=== PATIENT | male | born 1945 | race Caucasian/White ===

== ENCOUNTER 2019-01-03 05:38 | Day surgery (SDC) | payer MEDICARE, OTHER, SELFPAY ==
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
[2019-01-03] VITALS (15 sets, daily range): BP systolic 105–175; BP diastolic 56–94; PULSE 65–92; RESP 16–18; TEMP 36.2–37.5; O2SAT 92–97; BMI 26.5; BMI 26.4
--- NOTE | 2019-01-03 06:00 | EKG12_ITS ---
Test Reason : PRE-OP Blood Pressure : / mmHG Vent. Rate : 055 BPM Atrial Rate : 055 BPM P-R Int : 160 ms QRS Dur : 122 ms QT Int : 452 ms P-R-T Axes : 026 -64 031 degrees QTc Int : 432 ms Sinus bradycardia Right bundle branch block Left anterior fascicular block Bifascicular block Abnormal ECG No previous ECGs available Confirmed by KELL HAJI, MILANA ([id number]), restaurant expeditor JERRY ADAMES ([id number]) on 01/04/2019 1:19:47 PM Referred By: Ruel Pierre Confirmed By:MILANA CASTORENA MD
--- NOTE | 2019-01-03 07:15 | HERN_PTH ---
PATIENT: CLAUDIA VILLARREAL LOC: [facility] U#:[id number] AGE/SX: 73/M ROOM: RE01/03/[address]: Dr. Ruel Pierre MD : 1945 BED: DIS: 01/04/2019 SPEC #: [id number] RECD: 01/03/19 09:41 STATUS: NANO REShakeel #: [id number] ATIF: 01/03/19 07:[address]: Ruel Pierre DEPT: SURGICAL PATHOLOGY RECD BY: Malcom Green ENTERED: 01/03/19 13:03 SP TYPE: Hernia OTHR DR: Dr. Nishant Kwok MD Tissues: HERNIA Procedures: Surgery Specimen Level IV HEADER OPERATION: Incisional hernia with mesh PRE-OP DIAGNOSIS: Incisional hernia without obstruction or gangrene TISSUE SUBMITTED: Falciform MICROSCOPIC DIAGNOSIS Falciform, excision: Fragments of fibrofatty and fibrovascular tissue. AM:torres 01/04/19 MICROSCOPIC DESCRIPTION Slides are reviewed. GROSS DESCRIPTION Received in fixative is one container labeled with the patient's name and designated falciform. The specimen consists of a piece of adipose tissue measuring 7 x 3 x 1 cm. Sections do not reveal any mass lesion. Milk Bottler sections are submitted in one cassette. / SJ:rg 01/03/19 TC:5 CPT: 37783
[2019-01-03] MEDS: Cefazolin 2 GM in 0.9% Normal Saline 100 ML IV (07:30)
[2019-01-03] MEDS: Bupivacaine Mpf 0.5% 30 ML VIAL (08:50)
--- NOTE | 2019-01-03 08:57 | DCINST_ITS ---
Discharge Diet: Light diet - advance as tolerated Discharge Activity: Return to Normal Activity, May Drive - when you are no longer taking narcotic pain medications., May Shower - with the bandage in place 1-2 days after surgery. Lifting Restrictions: 20 pounds for 8 weeks. Additional Activity Instructions:: Climbing stairs is fine, walking is encouraged. Sitting in bed may be uncomfortable. Sitting up using your lateral muscles (sitting up sideways) is usually more comfortable. Do not drive, work heavy equipment of sign legal documents for 24 hours. If your hernia repair was an ingunial repair, you may have scrotal swelling, an ice pack and/or athletic support can provide more comfort. Pain medications may cause nausea, you should typically eat light foods as you take your pain medications. Pain medications may also cause constipation. If you have difficulty with this, discuss with your doctor. Call your doctor if your incision/area has: Continuous Slow Oozing, Sudden Increased Bleeding, Increased Pain/ Swelling, Increased Redness, Foul Smelling Discharge Call your doctor if you observe: Fever of 101 or Higher Suture Line Care: Avoid Pulling/Pushing, Avoid Pinching/Bending Additional Dressing/Incision Instructions:: Leave the operative bandage on for 2-3 days. When you remove the bandage, leave the steri-strips on place until your follow up appointment or they fall off. Allergies/Adverse Reactions: Allergies No Known Allergies Allergy (Verified 12/27/18 13:11) Medications to take at Discharge Ascorbic Acid [Vitamin C] 1,000 mg PO DAILY 12/27/18 Atorvastatin Calcium [Lipitor] 20 mg PO QHS 12/27/18 Calcium Carbonate [Calcium] 500 mg PO DAILY 12/27/18 Cholecalciferol (Vitamin D3) [Vitamin D3] 400 unit PO DAILY 12/27/18 Escitalopram Oxalate [Lexapro] 10 mg PO QHS 12/27/18 Glucosamine HCl/Chondroitin Suresh [Glucosamine-Chondroitin Cap] 1 each PO BID 12/27/18 Multivitamin [Multiple Vitamins] 1 each PO DAILY 12/27/18 Tamsulosin HCl [Flomax] 0.4 mg PO QHS 12/27/18 Primary Care Physician: Nishant Kwok MD [Primary Care Provider] - Test Results: Test results from this visit will be discussed in further detail at your follow- up appointment, if applicable. Please Follow Up With: Ruel Pierre MD - [phone] When: Plan to have a follow up appointment in 7 days. Call to schedule.
--- NOTE | 2019-01-03 09:00 | PCM.OPRPT ---
Report of Operation Date of Procedure: 01/03/19 Pre-Operative Diagnosis: incisional hernia Post-Operative Diagnosis: incisional hernia - 8x5cm defect Surgery/Procedure Performed:: laparoscopic incisional hernia repair credit union field examiner: None Type of Anesthesia:: General Anesthesiologist: Yazan Dasilva Specimen's removed: dolores Estimated Blood Loss (mL): minimal Fluids Replaced: 700 Description of Procedure: The patient was brought to the operating suite. Sign in was performed verifying patient, site, procedure, position, and DVT prophylaxis with SCDs. Patient received 2 g Ancef antibiotic prophylaxis. Following induction of general anesthetic, the patient?s abdomen was prepped and draped in the usual fashion. Timeout was performed verifying patient, site, position. Local anesthetic was injected . A linear incision was made and dissection carried down at the supraumbilical hernia site. The hernia sac and the hernia sac was opened . A Thomas trocar was inserted and secured with the balloon. 3- 5mm warts were placed in the far left lateral position There was no bowel adherent within the hernia sac. This was dissected off the hernia sac and then dissected off the fascial defect margin . There were multiple adhesions intra-abdominally. The falciform ligament was also divided to prevent tenting. The hernia sac tissue was excised and sent to pathology. A ventrio ST mesh 14x 18 cm was placed intra-abdominally. A Prolene suture was placed through the lower aspect of the mesh brought up with a Granee needle to just below the umbilical fascial defect. Prolene sutures were placed transfixing the fascia at 12 , 6 , 3 and 9:00 and then 4 others placed at diagonals using a GraNee needle . The mesh was then tacked using a secure strap tacker around the outer rim of the mesh and then in multiple locations in the inner mesh Skin was closed with a running and inturrepted 4-0 Monocryl subcuticular sutures. Steri-Strips and bandages were applied. The patient was brought to recovery room in stable condition. Grafts/Implants Used: Ventrio ST 18x14 - Ref [id number] Lot [id number] Exp 12/09/2019 secure strap 3 - Admit VTE Documentation VTE Present on Admission: No VTE Mechan Device Prophylaxis: SCD's VTE Pharm Prophylaxis ordered?: No
[2019-01-03] MEDS: Ketorolac 15 MG/ML Vial IV (10:31)
--- NOTE | 2019-01-03 14:29 | NURSING ---
called for update, given over the phone @ this time.
[2019-01-03] MEDS: oxyCODONE 5 MG Tablet PO ×2 (15:45→21:11)
--- NOTE | 2019-01-03 15:57 | NURSING ---
Pt tolerated 1x lap in hallway. Also has tolerated all clear liquids PO, diet advanced as ordered. Chicken noodle soup and saltines provided.
[2019-01-03] MEDS: Lactated Ringers 1,000 ML 70 ML IV (17:26)
--- NOTE | 2019-01-03 17:41 | NURSING ---
Pt reports he would prefer to spend the night and not be discharged tonight as was previously suggested to him by Dr. Pierre.
[2019-01-03] MEDS: Acetaminophen 325 MG Tablet 650 MG PO (21:11)
[2019-01-03] MEDS: Tamsulosin HCl 0.4 MG Capsule PO (21:11)
[2019-01-03] MEDS: Escitalopram Oxalate 10 MG Tablet PO (21:11)
[2019-01-03] MEDS: Morphine 2 MG/ML Syringe IV (21:27)
--- NOTE | 2019-01-03 22:46 | NURSING ---
Patient up ambulating in hallway at this time.
[2019-01-04] MEDS: oxyCODONE 5 MG Tablet PO ×3 (01:31→10:30)
[2019-01-04 01:36] VITALS: BP 121/81; PULSE 71; RESP 18; TEMP 37.2; O2SAT 94
--- NOTE | 2019-01-04 03:58 | NURSING ---
Patient is up walking in hallways at this time.
[2019-01-04 05:38] VITALS: PULSE 82; O2SAT 90
[2019-01-04 05:41] VITALS: BP 140/74; PULSE 76; RESP 18; TEMP 37.1; O2SAT 92
--- NOTE | 2019-01-04 06:37 | PCM.DC.SUM ---
Discharge Date and Diagnosis Date of Admission: 01/03/19 Date of Discharge: 01/04/19 - Primary Discharge Diagnosis incisional hernia Hospital Course and Treatment Operations: herniorrhaphy Summary of Care Provided: The patient is a 73 year old M with a midline incisional hernia. He underwent laparoscopic incisional hernia repair with mesh [id number]. He was doing will from a pain control standpoint on POD # 1 and ready for discharge - Physical Exam General: Alert, Oriented x3, Cooperative Lungs: Clear to auscultation, Normal air movement Cardiovascular: Regular rate, No murmurs Abdomen: Bowel Sounds Present, Soft, Tender - at incisions Vital Signs Temp Pulse Resp BP Pulse Ox 98.7 F 76 18 140/74 H 92 01/04/19 05:41 01/04/19 05:41 01/04/19 05:41 01/04/19 05:41 01/04/19 05:41 Oxygen Flow Rate (L/min) 1 Oxygen Delivery Method Nasal Cannula Weight: 86.183 kg Body Mass Index (BMI) 26.4 Intake and Output for Last 24 Hours 01/02/19 01/03/19 01/04/19 23:59 23:59 23:59 Intake Total 1401 / 1401 427 / 427 Output Total 300 / 300 575 / 575 Balance 1101 / 1101 -148 / -148 Discharge Diet: Light diet - advance as tolerated Discharge Activity: Return to Normal Activity, May Drive - when you are no longer taking narcotic pain medications., May Shower - with the bandage in place 1-2 days after surgery. Additional Activity Instructions:: Climbing stairs is fine, walking is encouraged. Sitting in bed may be uncomfortable. Sitting up using your lateral muscles (sitting up sideways) is usually more comfortable. Do not drive, work heavy equipment of sign legal documents for 24 hours. If your hernia repair was an ingunial repair, you may have scrotal swelling, an ice pack and/or athletic support can provide more comfort. Pain medications may cause nausea, you should typically eat light foods as you take your pain medications. Pain medications may also cause constipation. If you have difficulty with this, discuss with your doctor. Call your doctor if your incision/area has: Continuous Slow Oozing, Sudden Increased Bleeding, Increased Pain/ Swelling, Increased Redness, Foul Smelling Discharge Call your doctor if you observe: Fever of 101 or Higher Suture Line Care: Avoid Pulling/Pushing, Avoid Pinching/Bending Additional Dressing/Incision Instructions:: Leave the operative bandage on for 2-3 days. When you remove the bandage, leave the steri-strips on place until your follow up appointment or they fall off. Home Medications: Medications to take at Discharge Ascorbic Acid [Vitamin C] 1,000 mg PO DAILY 12/27/18 Atorvastatin Calcium [Lipitor] 20 mg PO QHS 12/27/18 Calcium Carbonate [Calcium] 500 mg PO DAILY 12/27/18 Cholecalciferol (Vitamin D3) [Vitamin D3] 400 unit PO DAILY 12/27/18 Escitalopram Oxalate [Lexapro] 10 mg PO QHS 12/27/18 Glucosamine HCl/Chondroitin Suresh [Glucosamine-Chondroitin Cap] 1 each PO BID 12/27/18 Multivitamin [Multiple Vitamins] 1 each PO DAILY 12/27/18 Tamsulosin HCl [Flomax] 0.4 mg PO QHS 12/27/18 Acetaminophen [Tylenol Tablet] 650 mg PO Q6H PRN PRN tablet 01/03/19 Oxycodone [Oxyir] 5 mg PO Q4H PRN PRN 7 Days #14 tab 01/03/19 Following Prescrptions Were Given to Patient: Oxycodone [Oxyir] 5 mg PO Q4H PRN PRN 7 Days #14 tab PRN Reason: Severe Pain (6-10/10) Primary Care Physician: Nishant Kwok MD [Primary Care Provider] - Please Follow Up With: Ruel Pierre MD - [phone] When: Plan to have a follow up appointment in 7 days. Call to schedule. Medical Necessity - Tobacco Use Smoking Status: Former smoker Tobacco Use: Non-smoker Meaningful Use Info Meaningful Use Diagnoses (Choose all that apply): None applicable
[2019-01-04 07:13] LABS: Absolute Lymphocyte Count 1.69 X10^3/ul (0.83-4.51); Absolute Neutrophil Count 4.5 X10^3/uL (2.0-7.7); Basophil# 0.01 X10^3/uL; Basophil% 0.1 % (0-1); Eosinophil# 0.13 X10^3/uL; Eosinophils% 1.9 % (0-5); Hematocrit 45.4 % (40-54); Lymphocyte # 1.69 X10^3/ul (4.0); Lymphocyte % 24.5 % (19-41); Mean Corp Hgb Conc 30.8 g/gl (32-36); Mean Corpuscular Hgb 31.5 pg (27.0-32.0); Mean Platelet Vol. 9.4 fl (6.2-12.0); Monocyte# 0.57 X10^3/uL; Monocyte% 8.3 % (0-10); Neutrophil # 4.48 X10^3/uL (2.7-7.7); Neutrophil % 65.1 % (47-70); Platelet Count 156 K/mm3 (150-450); RBC Distribution Width CV 12.2 % (11.6-14.6); RBC Distribution Width SD 45.1 fl (35.1-43.9); Red Blood Count 4.45 M/mm3 (4.6-6.2); White Blood Count 6.9 K/mm3 (4.4-11.0)
[2019-01-04 07:14] LABS: POSITIVE COUNT NO; POSITIVE DIFFERENTIAL NO; POSITIVE MORPHOLOGY NO
[2019-01-04 07:26] VITALS: O2SAT 96
[2019-01-04 07:35] LABS: Anion Gap 4 (5-15); BUN 12 mg/dL (7-18); BUN/Creat Ratio 10.9 RATIO (10-20); Calcium,Total 8.4 mg/dL (8.5-10.1); Chloride 104 mmol/L (98-107); EST Glomerular Filtration Rate 70 mL/min (>60); Est Glom Filt Rate - Afr Amer 84 mL/min (>60); Estimated Creatinine Clearance 64.65 ml/min; Glucose 91 mg/dL (74-106); Potassium 3.9 mmol/L (3.5-5.1); Sodium Level 139 mmol/L (136-145)
[2019-01-04 08:28] VITALS: BP 143/74; PULSE 80; RESP 16; TEMP 36.9; O2SAT 93
--- NOTE | 2019-01-04 08:30 | NURSING ---
On RA patient's oxygen was 89-87%. Asked patient to use IS and to ambulate in the bedolla and we would reevaluate. After doing so patient was assisted back to chair and pulse ox was 93% on RA. Will monitor. Encouraged continued use of IS. Educated patient on importance of using this device at home and to continue with ambulation at home and activity as directed by Dr. Pierre in DC instructions.
[2019-01-04 10:42] VITALS: O2SAT 93
== END 2019-01-04 10:45 | disposition home or self-care (01) ==
LOC: SDC 05:41 → AC 05:44 → MS3 01-04 07:21
PROVIDERS: Family Provider Family Medicine; PCP Family Medicine; Referring Provider Surgery; Visit Provider Surgery
PROC: 0WQF4ZZ Repair Abdominal Wall, Percutaneous Endoscopic Approach (ICD-10-PCS; CPT 49654; principal; 2019-01-03 06:55)
DX: K43.2 Incisional hernia without obstruction or gangrene (principal); M19.90 Unspecified osteoarthritis, unspecified site; G14 Postpolio syndrome; E78.5 Hyperlipidemia, unspecified; N40.0 Benign prostatic hyperplasia without lower urinary tract symptoms; F41.9 Anxiety disorder, unspecified; Z87.891 Personal history of nicotine dependence; Z79.899 Other long term (current) drug therapy
CPT/HCPCS: 00832; 49654; 36415; 80048; 85025; 88302; 88305; 93005; J7120; C1781; J2405

== ENCOUNTER 2019-01-06 04:56 | Inpatient (IN) | payer MEDICARE, OTHER, SELFPAY ==
[2019-01-03 11:40] VITALS: BMI 26.4
[2019-01-06 04:57] VITALS: BP 148/94; PULSE 92; RESP 18; TEMP 36.8; O2SAT 97; BMI 26.9
--- NOTE | 2019-01-06 05:06 | RAD_ITS ---
STUDY: X-RAY - ABDOMEN/PELVIS REASON FOR EXAM: Male, 73 years old. Constipation TECHNIQUE: AP supine and upright views of the abdomen and pelvis. COMPARISON: None. FINDINGS: Normal visualized lung bases. There is a paralytic ileus of the small intestine with mild gaseous distention. There is no demonstrated free abdominal air. The visualized liver, spleen and kidneys are grossly normal in size and morphology. Normal soft tissue structures. Normal visualized osseous structures. RAD/Abdomen Single View IMPRESSION: There is gaseous distention of small bowel loops throughout the abdomen suggesting an ileus. Electronically Signed: William Tejada, at 5:36 EDT Tel , Service support ,
--- NOTE | 2019-01-06 05:30 | CT_ITS ---
STUDY: CT ABDOMEN AND PELVIS WITH CONTRAST REASON FOR EXAM: Male, 73 years old. Abdominal pain after incisional hernia repair. RADIATION DOSAGE (If Supplied By Facility): CTDIvol = ( 14.91 ) mGy, DLP = ( 1096.07 ) mGycm TECHNIQUE: Transaxial images were obtained from the dome of the diaphragm to the symphysis pubis without oral contrast. 100 ml IV/Oral Isovue 300 was administered. Sagittal and coronal images were reconstructed. Individualized dose optimization techniques were used for this CT. COMPARISON: Prior comparison studies are not available for review at this time. FINDINGS: There is a bilateral lower lobe airspace consolidation and atelectasis possibly representing pneumonia. The visualized portions of the heart are within normal limits. Normal liver. Normal gallbladder and extrahepatic biliary system. Normal spleen. Normal pancreas. Normal bilateral adrenal glands. Normal right kidney. Normal left kidney. Normal visualized stomach. There are multiple dilated loops of small bowel with maximum transverse dimension of approximately 3.9 cm. Surgical sutures are visible within the right colon possibly related to partial bowel resection. The colon does not appear to be dilated. There is non-visualization of the appendix. There is minimal atherosclerotic calcification of the abdominal aorta with elongation and tortuosity, but without a demonstrated aneurysm. Normal inferior vena cava. Normal retroperitoneum. The urinary bladder is not distended. Normal visualized prostate gland. There appears to be residual central ventral hernia where there may be some incarcerated bowel. This may be the cause of the bowel obstruction. There is soft tissue emphysema within the right paramedian anterior abdominal wall that is probably postoperative in etiology. The bones appear osteopenic. There is severe compression of the L1 vertebral body with estimated amount of compression of at least 80%. There are multilevel degenerative changes of the imaged thoracic and lumbar spine. There are degenerative changes of both hips. CT/Abdomen/Pelvis WITH Contrast IMPRESSION: 1. Small bowel obstruction possibly related to incarcerated small bowel within a residual ventral hernia. 2. Bilateral basilar airspace consolidation and atelectasis could represent pneumonia. Electronically Signed: Yamilet Thomas MD at 8:15 EDT , Service support ,
[2019-01-06 05:47] LABS: Absolute Lymphocyte Count 1.04 X10^3/ul (0.83-4.51); Absolute Neutrophil Count 5.3 X10^3/uL (2.0-7.7); Basophil# 0.02 X10^3/uL; Basophil% 0.3 % (0-1); Eosinophil# 0.17 X10^3/uL; Eosinophils% 2.4 % (0-5); Hemoglobin 14.6 g/dl (13.0-16.5); Lymphocyte # 1.04 X10^3/ul (4.0); Lymphocyte % 14.8 % (19-41); Mean Corp Hgb Conc 32.4 g/gl (32-36); Mean Corpuscular Hgb 32.1 pg (27.0-32.0); Mean Corpuscular Volume 98.9 fL (80-94); Mean Platelet Vol. 9.5 fl (6.2-12.0); Monocyte# 0.51 X10^3/uL; Monocyte% 7.3 % (0-10); Neutrophil # 5.26 X10^3/uL (2.7-7.7); Neutrophil % 75.1 % (47-70); POSITIVE COUNT NO; POSITIVE DIFFERENTIAL NO; POSITIVE MORPHOLOGY NO; Platelet Count 170 K/mm3 (150-450); RBC Distribution Width CV 11.8 % (11.6-14.6); RBC Distribution Width SD 42.2 fl (35.1-43.9); Red Blood Count 4.55 M/mm3 (4.6-6.2)
--- NOTE | 2019-01-06 05:49 | ED.DCSUM_ITS ---
- ER Visit Summary Date of Service: 01/06/19 Chief Complaint: Abdominal pain History of Present Illness: The patient is a 73 M who is postoperative day 3 from incisional hernia repair with Dr. Valiente. Patient states that he was discharged postop day 1. He has not had a bowel movement. He states he is not passing gas. He states that he is urinating fine. He spoke with Dr. Meadows who recommended MiraLAX. He tried 3 doses with no success of having a bowel movement. 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 He developed an incisional hernia. He now notes a generalized 3 out of 10 abdominal pain. Physical Examination: Afebrile vital signs are stable Gen: Well-nourished well-developed Head: Normocephalic atraumatic Eyes: Perrl EOMI ENT: TMs clear no rhinorrhea moist mucous membranes Neck: Supple no lymphadenopathy no JVD nontender CVS: Regular rate rhythm no murmurs normal S1-S2 Respiratory: No distress clear to auscultation bilaterally chest nontender Abdomen: Abdomen is distended. I do hear some bowel sounds. Surgical incisions are without cellulitis. Back: Nontender Extremity: Nontender no edema Skin: Normal color no rash Neuro: alert orientated ?3 CN II-XII intact normal strength sensation reflexes gait cerebellar Psych: Normal affect normal mood Test Results: Abdominal films demonstrate gaseous distention of the small intestines. Emergency Department Course and Treatment: Basic labs were drawn. A CT of the abdomen pelvis was ordered. This will be checked by the daytime physician and we will discuss the findings and treatment plan with surgery after the results. Impression: 1. Acute abdominal pain 2. Ileus This note was generated with GoGoVan dictation software. It may contain incorrect words, spelling, and punctuation that were not noted in review of the chart prior to signing <Chuy Darden - Last Filed: 01/06/19 05:46> - ER Visit Summary Date of Service: 01/06/19 Chief Complaint: [] History of Present Illness: The patient is a 73 M who was initially seen by Dr. Tiburcio Morgan. Patient was evaluated after he returned from CAT scan and inform patient of results. He states he feels better after a large bowel movement. Will relate this information to Dr. Serafin Carreon. Physical Examination: Abdomen is distended tympanitic, but soft. Test Results: CT/Abdomen/Pelvis WITH Contrast IMPRESSION: 1. Small bowel obstruction possibly related to incarcerated small bowel within a residual ventral hernia. 2. Bilateral basilar airspace consolidation and atelectasis could represent pneumonia. Electronically Signed: Yamilet Thomas MD at 8:15 EDT Emergency Department Course and Treatment: Dr. Valiente was paged in light of the CAT scan results which raises concern for a small bowel obstruction related to an incarcerated small bowel within a residual ventral hernia. Treatment Plan: Consult surgery Disposition: Admission medical surgical unit. Will discuss placement of NG. Dr. Valiente reviewed CAT scan. He does not believe he has a partial small bowel obstruction. He believes this represents an ileus. Patient to be assigned to medical surgical unit Impression: Abdominal pain with distention secondary to ileus versus partial small bowel obstruction This note was generated with GoGoVan dictation software. It may contain incorrect words, spelling, and punctuation that were not noted in review of the chart prior to signing <Varela,Reyes - Last Filed: 01/06/19 08:50> ED Disposition <Chuy Darden - Last Filed: 01/06/19 05:46> <Varela,Reyes - Last Filed: 01/06/19 08:50> - Plan for ED Patient: Referrals: Nishant Kwok MD [Primary Care Provider] -
[2019-01-06 06:05] LABS: BUN 13 mg/dL (7-18); Creatinine, Serum 1.02 mg/dL (0.70-1.30); Estimated Creatinine Clearance 69.72 ml/min; Glucose 96 mg/dL (74-106)
[2019-01-06 06:06] LABS: ALB/GLOB Ratio 0.9 RATIO (0.9-2.4); AST(SGOT) 38 U/L (15-37); Alanine Aminotransfer ALT/SGPT 21 U/L (16-61); Albumin, Serum 3.4 g/dL (3.2-5.0); Alkaline Phosphatase 85 U/L (45-117); Anion Gap 9 (5-15); BUN/Creat Ratio 12.7 RATIO (10-20); Chloride 100 mmol/L (98-107); EST Glomerular Filtration Rate 76 mL/min (>60); Est Glom Filt Rate - Afr Amer 92 mL/min (>60); Globulin 3.9 g/dL (2.2-4.2); Potassium 4.6 mmol/L (3.5-5.1); Protein, Total 7.3 g/dL (6.4-8.2); Sodium Level 137 mmol/L (136-145)
[2019-01-06 06:19] LABS: Lactic Acid 1.1 mmol/L (0.4-2.0)
[2019-01-06 08:09] VITALS: BP 135/67; PULSE 73; RESP 15; O2SAT 96
--- NOTE | 2019-01-06 08:56 | NURSING ---
MED SURG ABD PAIN WITHDISTENTION, ILEUS VS PARTIAL SBO SARAH
[2019-01-06 09:52] VITALS: BMI 26.8
[2019-01-06 09:57] VITALS: BP 116/74; PULSE 86; RESP 18; TEMP 36.8; O2SAT 92
[2019-01-06] MEDS: Lactated Ringers 1,000 ML 100 ML IV ×2 (10:45→21:02)
[2019-01-06 17:28] VITALS: BP 118/70; PULSE 81; RESP 18; TEMP 37.2; O2SAT 91
[2019-01-06 20:50] VITALS: BP 115/64; PULSE 82; RESP 16; TEMP 37.1; O2SAT 94
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
[2019-01-07 02:25] VITALS: BP 121/71; PULSE 75; RESP 16; TEMP 36.9; O2SAT 94
--- NOTE | 2019-01-07 04:55 | RAD_ITS ---
STUDY: X-RAY - ABDOMEN/PELVIS REASON FOR EXAM: Male, 73 years old. Abdominal distention and pain. TECHNIQUE: AP supine and upright views of the abdomen and pelvis. COMPARISON: CT of the abdomen and pelvis, January 06, 2019. FINDINGS: Normal visualized lung bases. There is marked gaseous distention of small bowel loops throughout the abdomen without air-fluid levels. Air is seen in nondistended descending colon. There is no demonstrated free abdominal air. The visualized liver, spleen and kidneys are grossly normal in size and morphology. Contrast from the prior CT is seen within the urinary bladder. Normal soft tissue structures. Normal visualized osseous structures. RAD/Abd Inc Decub and/or Erect IMPRESSION: Findings most suggestive of early or small bowel obstruction. Electronically Signed: James Gasca DO at 8:24 EDT Tel [phone], Service support ,
[2019-01-07 06:25] LABS: Absolute Lymphocyte Count 1.27 X10^3/ul (0.83-4.51); Absolute Neutrophil Count 2.3 X10^3/uL (2.0-7.7); Basophil# 0.01 X10^3/uL; Basophil% 0.2 % (0-1); Eosinophil# 0.25 X10^3/uL; Eosinophils% 5.8 % (0-5); Hematocrit 47.2 % (40-54); Hemoglobin 15.2 g/dl (13.0-16.5); Lymphocyte # 1.27 X10^3/ul (4.0); Lymphocyte % 29.5 % (19-41); Mean Corp Hgb Conc 32.2 g/gl (32-36); Mean Corpuscular Hgb 31.5 pg (27.0-32.0); Mean Corpuscular Volume 97.9 fL (80-94); Mean Platelet Vol. 9.9 fl (6.2-12.0); Monocyte# 0.52 X10^3/uL; Monocyte% 12.1 % (0-10); Neutrophil # 2.26 X10^3/uL (2.7-7.7); Neutrophil % 52.4 % (47-70); Platelet Count 199 K/mm3 (150-450); RBC Distribution Width CV 12.1 % (11.6-14.6); RBC Distribution Width SD 43.1 fl (35.1-43.9); Red Blood Count 4.82 M/mm3 (4.6-6.2); White Blood Count 4.3 K/mm3 (4.4-11.0)
[2019-01-07 06:33] LABS: Anion Gap 10 (5-15); BUN 16 mg/dL (7-18); BUN/Creat Ratio 15.2 RATIO (10-20); Chloride 102 mmol/L (98-107); Creatinine, Serum 1.05 mg/dL (0.70-1.30); EST Glomerular Filtration Rate 74 mL/min (>60); Est Glom Filt Rate - Afr Amer 89 mL/min (>60); Estimated Creatinine Clearance 67.73 ml/min; Glucose 101 mg/dL (74-106); Potassium 3.9 mmol/L (3.5-5.1); Sodium Level 139 mmol/L (136-145)
[2019-01-07 06:36] LABS: POSITIVE COUNT NO; POSITIVE DIFFERENTIAL NO; POSITIVE MORPHOLOGY NO
[2019-01-07] MEDS: Lactated Ringers 1,000 ML 100 ML IV ×2 (06:58→16:18)
[2019-01-07 08:03] VITALS: BP 132/79; PULSE 81; RESP 16; TEMP 37; O2SAT 93
--- NOTE | 2019-01-07 10:05 | CASEMGMT ---
RN MEETA Face to Face with patient for initial transition planning/care coordination assessment. RN CM introduced self and role at [facility]. Patient lying in bed, alert and oriented. Patient willing to participate in assessment and is able to answer all questions appropriately. Care providers, pharmacy, and demographics verified. Patient wishes to discharge home, denies need for home health at this time. Patient states he has no further needs or concerns at this time. CM to follow for discharge planning needs that may arise. PCP: Sundar Specialists: [facility] Pharmacy: [facility] Insurance: [facility] Prescription Benefit: yes Living Will/HPOA: none LNOK: Living Arrangements:Lavonne lives in a 2 story home with bed and bath on first floor. Patient is independent at home. Transportation: Self/ DME/HHC: Patient has grab bars, denies further DME at this time. Disposition Plan: Patient to discharge home with family support and follow-up plans in place. Janey HUERTAS, RN, CM
[2019-01-07 11:04] VITALS: BP 136/83; PULSE 85; RESP 16; TEMP 36.6; O2SAT 93
[2019-01-07] MEDS: Tamsulosin HCl 0.4 MG Capsule PO ×2 (11:29→17:15)
[2019-01-07 14:00] VITALS: BP 141/77; PULSE 83; RESP 16; TEMP 37.1; O2SAT 92
--- NOTE | 2019-01-07 18:08 | PN.SURG_ITS ---
Subjective: 2 bowel movements but some cramping earlier - Physical Exam General: Alert, Oriented x3, Cooperative Lungs: Clear to auscultation, Normal air movement Cardiovascular: Regular rate, Regular Rhythm Abdomen: Non Tender - except incisions, Hypoactive Bowel Sounds, Distended - - mildly Vital Signs Temp Pulse Resp BP Pulse Ox 98.8 F 83 16 141/77 H 92 01/07/19 14:00 01/07/19 14:00 01/07/19 14:00 01/07/19 14:00 01/07/19 14:00 Oxygen Delivery Method Room Air Weight: 87.2 kg Body Mass Index (BMI) 26.8 Intake and Output for Last 24 Hours 01/05/19 01/06/19 01/07/19 23:59 23:59 23:59 Intake Total 700 / 700 2316 / 2316 Output Total 0 / 0 / Balance 700 / 700 2315 / 2315 Laboratory Tests Past 24 Hrs 01/07/19 01/07/19 05:10 05:10 WBC 4.3 L RBC 4.82 Hgb 15.2 Hct 47.2 MCV 97.9 H MCH 31.5 MCHC 32.2 RDW 12.1 RDW Differential 43.1 Plt Count 199 MPV 9.9 Immature Gran % (Auto) 0.000 Neut % (Auto) 52.4 Lymph % (Auto) 29.5 [place] % (Auto) 12.1 H Eos % (Auto) 5.8 H Baso % (Auto) 0.2 Absolute Neuts (auto) 2.3 Absolute Lymphs (auto) 1.27 Total Counted Not Reportable Sodium 139 Potassium 3.9 Chloride 102 Carbon Dioxide 27.0 Anion Gap 10 BUN 16 Creatinine 1.05 Estim Creat Clear Calc 67.73 Est GFR (MDRD) Af Amer 89 Est GFR (MDRD) Non-Af 74 BUN/Creatinine Ratio 15.2 Glucose 101 Calcium 9.0 Medical Necessity - Tobacco Use Smoking Status: Former smoker Assessment/Plan postoperative ileus on CT scan, now moving bowels and clinically improved Given the significant degree of abdominal distention on the CT scan -improved on this morning's abdominal multiview, but somewhat hypoactive bowel sounds we will start sips and chips. We will restart his outpatient medications. We'll plan for repeat abdominal multiview in morning..
[2019-01-07 20:00] VITALS: BP 143/86; PULSE 82; RESP 16; TEMP 37.3; O2SAT 92
[2019-01-07] MEDS: Escitalopram Oxalate 10 MG Tablet PO (21:36)
[2019-01-07] MEDS: Atorvastatin Calcium 20 MG Tablet PO (21:36)
[2019-01-08] MEDS: Lactated Ringers 1,000 ML 100 ML IV ×2 (01:50→11:39)
[2019-01-08 02:00] VITALS: BP 137/86; PULSE 90; RESP 16; TEMP 36.8; O2SAT 93
--- NOTE | 2019-01-08 05:28 | RAD_ITS ---
STUDY: X-RAY - ABDOMEN/PELVIS REASON FOR EXAM: Male, 73 years old. Abdominal pain TECHNIQUE: AP supine and upright views of the abdomen and pelvis. COMPARISON: None. FINDINGS: Normal visualized lung bases. Nonspecific bowel gas pattern is noted with gaseous dilated loops of small and large bowel in the right hemiabdomen. Gaseous dilated stomach with air-fluid level. Early obstruction cannot be excluded. No significant change from yesterday. There is no demonstrated free abdominal air. The visualized liver, spleen and kidneys are grossly normal in size and morphology. Normal soft tissue structures. There are diffuse degenerative changes of the visualized lumbar spine. RAD/Abd Inc Decub and/or Erect IMPRESSION: No significant change from yesterday. Continued dilated loops of small and large bowel suggesting early obstruction Electronically Signed: Jt Perera DO at 8:15 EDT Tel , Service support ,
[2019-01-08 08:00] VITALS: BP 144/73; PULSE 90; RESP 18; TEMP 37.1; O2SAT 92
--- NOTE | 2019-01-08 08:48 | NURSING ---
Dr. Pierre in to see pt. Dr. Pierre wants pt to have NG put in and no oral meds. Will put order in.
--- NOTE | 2019-01-08 09:35 | RAD_ITS ---
STUDY: X-RAY - ABDOMEN/PELVIS REASON FOR EXAM: Male, 73 years old. NG tube placement TECHNIQUE: Single AP view of the abdomen / pelvis. COMPARISON: None. FINDINGS: NG tube has been placed however, it curls upon itself in the stomach and the tip of the NG tube is coursing back up the esophagus. Removal of replacement as needed. Again noted is dilated loops of small bowel compatible with early small bowel obstruction. Gaseous distended stomach. Remainder is unchanged RAD/Abdomen Single View IMPRESSION: Abnormal positioning of the enteric tube as detailed above. Removal with repeat placement is needed. Remainder is stable Electronically Signed: Jt Perera DO at 10:19 EDT Tel , Service support ,
--- NOTE | 2019-01-08 10:20 | PCM.PN.SRG ---
Subjective: distended and vomited overnight. Feels better after vomiting, still having liquid bowel movements and passing flatus - Physical Exam General: Alert, Oriented x3 Lungs: Clear to auscultation, Normal air movement Cardiovascular: Regular rate, Regular Rhythm Abdomen: Soft, Passing Flatus, Hypoactive Bowel Sounds, Distended Vital Signs Temp Pulse Resp BP Pulse Ox 98.8 F 90 18 144/73 H 92 01/08/19 08:00 01/08/19 08:00 01/08/19 08:00 01/08/19 08:00 01/08/19 08:00 Oxygen Delivery Method Room Air Weight: 87.2 kg Body Mass Index (BMI) 26.8 Intake and Output for Last 24 Hours 01/06/19 01/07/19 01/08/19 23:59 23:59 23:59 Intake Total 700 / 700 2316 / 2316 1401 / 1401 Output Total 0 / 0 1 / 1 Balance 700 / 700 2315 / 2315 1401 / 1401 Medical Necessity - Tobacco Use Smoking Status: Former smoker Assessment/Plan ileus versus early postop small bowel obstruction repeat review of initial CAT scan was felt to be postoperative ileus. air-fluid level external to mesh was felt to be air-fluid level in the hernia sac which is known and expected after laparoscopic hernia repair. Mesh is 14 x 18 cm and does not seem to demonstrate on previous CT scan any dehiscence with bowel between the mesh and the true abdominal wall. patient was started on liquids yesterday when he is felt to be clinically improving. Still moving bowels/flatus but now vomited overnight we will place an NG tube. Then based on output from the NG tube plan to repeat CT scan with oral contrast.
--- NOTE | 2019-01-08 10:27 | NURSING ---
dr. Pierre called this nurse and made this nurse aware that NG was coiled 6-8 inches into Esophagus and that nurse needs to take NG out 6-8 inches and then advance back 6-8 inches. This nurse in room with pt and took NG out 7 inches and then advanced [address] Pierre wanted. Immediately got Green bile in NG tube. Order placed for 2nd KUB and called to inform. Will make sure they wait on unit until Dr. Pierre is called and we are aware of correct placement. When this nurse initially inserted NG, pt vomited 500cc of green bile and a lg unmeasured amt before that.
--- NOTE | 2019-01-08 10:34 | RAD_ITS ---
STUDY: X-RAY - ABDOMEN/PELVIS REASON FOR EXAM: Male, 73 years old. NG tube placement TECHNIQUE: Single AP view of the abdomen / pelvis. COMPARISON: Plain film earlier FINDINGS: Appropriate positioning of NG tube and side-port in the stomach. Remainder is unchanged RAD/Abdomen Single View IMPRESSION: As above Electronically Signed: Jt Perera DO at 11:08 EDT Tel , Service support ,
--- NOTE | 2019-01-08 10:58 | NURSING ---
Dr. Pierre called this nurse and said placement was good and can make up operator helper to suction.
--- NOTE | 2019-01-08 13:42 | NURSING ---
pt only voided once today that was not measured. This nurse talked about measuring urine in urinal or measuring hat in bathroom and importance. Pt is aware of importance. Will continue to monitor.
--- NOTE | 2019-01-08 15:29 | CT_ITS ---
STUDY: CT ABDOMEN AND PELVIS WITHOUT CONTRAST REASON FOR EXAM: Male, 73 years old. Postop incisional hernia repair, distention nausea and vomiting RADIATION DOSAGE (If Supplied By Facility): CTDIvol = ( 10.10 ) mGy, DLP = ( 542.44 ) mGycm TECHNIQUE: Transaxial images were obtained from the dome of the diaphragm to the symphysis pubis without oral contrast, and without intravenous contrast. Sagittal and coronal images were reconstructed. Individualized dose optimization techniques were used for this CT. COMPARISON: Previous study of 01/06/2019 FINDINGS: There is bibasilar atelectasis. There is mild cardiomegaly. There is no pericardial effusion. Coronary arterial calcifications are present. Normal liver. Normal gallbladder and extrahepatic biliary system. Normal spleen. Normal pancreas. Normal bilateral adrenal glands. Normal right kidney. Normal left kidney. Nasogastric tube is present with the tip in the stomach. There is severe distention of multiple loops of proximal small bowel consistent with obstruction. There is a significant decrease in degree of distention of distal small bowel when compared to the previous study. There are postsurgical changes of the cecal region. There is non-visualization of the appendix. There are several small calcified plaques of the abdominal aorta. Normal inferior vena cava. Normal retroperitoneum. Normal urinary bladder. There is minimal ventral wall herniation containing a knuckle of nondistended bowel. This is significantly decreased from the previous study. There is right anterior abdominal subcutaneous emphysema, similar to the previous study. There are diffuse degenerative changes of the visualized thoracolumbar spine. Severe old compression deformity of L1 is again noted. CT/Abdomen/Pel W ORAL Cont Only IMPRESSION: 1. Bibasilar atelectasis. This is slightly improved in the interval. 2. A nasogastric tube is seen with the tip in the stomach. 3. There is severe distention of multiple loops of proximal small bowel consistent with obstruction. This appears similar to the previous study. There is a significant decrease in degree of distention of distal small bowel when compared to the prior study. 4. There is minimal ventral wall herniation containing a knuckle of nondistended bowel. This is significantly decreased from the previous study. 5. There is right anterior abdominal subcutaneous emphysema, similar to the previous study. 6. Status post right hemicolonic surgical changes are noted. Electronically Signed: Francesco Velasquez MD at 22:36 EDT , Service support ,
[2019-01-08 18:08] VITALS: BP 162/81; PULSE 83; RESP 18; TEMP 37.2; O2SAT 95
--- NOTE | 2019-01-08 18:23 | NURSING ---
Addendum entered by Rabia Thurston 01/08/19 18:25: Order to increase fluids to 150ml/hr Original Note: pt only voided once this morning that was not measured, then 50cc this afternoon. This bladder scanned pt for 15ml. Dr. Pierre called.
[2019-01-08] MEDS: Lactated Ringers 1,000 ML 150 ML IV (18:51)
[2019-01-08 20:20] VITALS: BP 147/89; PULSE 77; RESP 16; TEMP 37.1; O2SAT 92
[2019-01-08] MEDS: Lactated Ringers 500 ML 999 ML IV (21:05)
[2019-01-09] VITALS (16 sets, daily range): BP systolic 103–152; BP diastolic 61–88; PULSE 70–103; RESP 16–20; TEMP 36.6–37.2; O2SAT 92–99; BMI 25.9; BMI 26.8
--- NOTE | 2019-01-09 | HERN_PTH ---
PATIENT: CLAUDIA VILLARREAL LOC: [facility]3 U#:[id number] AGE/SX: 73/M ROOM: TN302 RE01/07/[address]: Dr. Ruel Pierre MD : 1945 BED: 1 DIS: 01/13/2019 SPEC #: [id number] RECD: 01/10/19 07:14 STATUS: NANO REQ #: [id number] ATIF: 01/09/19 00:[address]: Ruel Pierre DEPT: SURGICAL PATHOLOGY RECD BY: Ezequiel Ballesteros ENTERED: 01/10/19 09:21 SP TYPE: Hernia OTHR DR: Dr. Nishant Kwok MD Tissues: HERNIA Procedures: Surgery Specimen Level II HEADER OPERATION: Exploratory laparotomy PRE-OP DIAGNOSIS: Small bowel obstruction TISSUE SUBMITTED: Hernia sac MICROSCOPIC DIAGNOSIS Hernia sac: Fragments of fibroadipose and fibroconnective tissue, consistent with hernia sac with chronic inflammation and reactive changes. SJ:torres 01/11/19 MICROSCOPIC DESCRIPTION Slides are reviewed. GROSS DESCRIPTION Received in fixative is one container labeled with the patient's name and designated hernia sac. The specimen consists of three variable sized pieces of soft tissue that in aggregate measure 8 x 6 x 1.5 cm. No mass lesion is identified. Referral Clerk sections are submitted in one cassette. / SJ:torres 01/10/19 TC:5 CPT: 31622
--- NOTE | 2019-01-09 06:00 | RAD_ITS ---
STUDY: X-RAY - ABDOMEN/PELVIS REASON FOR EXAM: Male, 73 years old. Small bowel obstruction follow-up TECHNIQUE: AP supine and upright views of the abdomen and pelvis. COMPARISON: Yesterday FINDINGS: Enteric tube extends to the upper stomach. Persistent dilated air-filled small bowel measuring up to 6.6 cm and the left lower abdomen. Distal small bowel and colonic gas identified, however. There is no demonstrated free abdominal air. The visualized liver, spleen and kidneys are grossly normal in size and morphology. Normal soft tissue structures. Normal visualized osseous structures. RAD/Abd Inc Decub and/or Erect IMPRESSION: 1. Increased bowel distention as compared to KUB from yesterday. Ileus versus partial small bowel obstruction. Electronically Signed: Isidoro Cox MD at 10:32 EDT , Service support ,
[2019-01-09 06:21] LABS: Absolute Lymphocyte Count 1.46 X10^3/ul (0.83-4.51); Absolute Neutrophil Count 2.8 X10^3/uL (2.0-7.7); Basophil# 0.02 X10^3/uL; Basophil% 0.4 % (0-1); Eosinophil# 0.24 X10^3/uL; Eosinophils% 4.5 % (0-5); Hematocrit 42.6 % (40-54); Hemoglobin 13.8 g/dl (13.0-16.5); Lymphocyte # 1.46 X10^3/ul (4.0); Lymphocyte % 27.2 % (19-41); Mean Corp Hgb Conc 32.4 g/gl (32-36); Mean Corpuscular Hgb 31.7 pg (27.0-32.0); Mean Corpuscular Volume 97.7 fL (80-94); Mean Platelet Vol. 9.6 fl (6.2-12.0); Monocyte# 0.81 X10^3/uL; Monocyte% 15.1 % (0-10); Neutrophil # 2.84 X10^3/uL (2.7-7.7); Neutrophil % 52.8 % (47-70); POSITIVE COUNT NO; POSITIVE DIFFERENTIAL NO; POSITIVE MORPHOLOGY NO; Platelet Count 181 K/mm3 (150-450); RBC Distribution Width CV 12.4 % (11.6-14.6); RBC Distribution Width SD 44.2 fl (35.1-43.9); Red Blood Count 4.36 M/mm3 (4.6-6.2); White Blood Count 5.4 K/mm3 (4.4-11.0)
--- NOTE | 2019-01-09 06:28 | PCM.PN.SRG ---
Subjective: no flatus, no BM - Physical Exam General: Alert, Oriented x3, Cooperative Lungs: Clear to auscultation, Normal air movement Cardiovascular: Regular rate, No murmurs Abdomen: Soft, Hypoactive Bowel Sounds, Distended, Tender - at incision Vital Signs Temp Pulse Resp BP Pulse Ox 98.7 F 70 16 136/75 H 97 01/09/19 02:08 01/09/19 02:08 01/09/19 02:08 01/09/19 02:08 01/09/19 02:08 Oxygen Delivery Method Room Air Weight: 87.2 kg Body Mass Index (BMI) 26.8 Intake and Output for Last 24 Hours 01/07/19 01/08/19 01/09/19 23:59 23:59 23:59 Intake Total 2316 / 2316 2610 / 2610 2061 / 2061 Output Total 1825 / 1825 825 / 825 Balance 2315 / 2315 785 / 785 1237 / 1237 Laboratory Tests Past 24 Hrs 01/09/19 01/09/19 05:05 05:05 WBC 5.4 RBC 4.36 L Hgb 13.8 Hct 42.6 MCV 97.7 H MCH 31.7 MCHC 32.4 RDW 12.4 RDW Differential 44.2 H Plt Count 181 MPV 9.6 Immature Gran % (Auto) 0.000 Neut % (Auto) 52.8 Lymph % (Auto) 27.2 [place] % (Auto) 15.1 H Eos % (Auto) 4.5 Baso % (Auto) 0.4 Absolute Neuts (auto) 2.8 Absolute Lymphs (auto) 1.46 Total Counted Not Reportable Sodium Pending Potassium Pending Chloride Pending Carbon Dioxide Pending Anion Gap Pending BUN Pending Creatinine Pending Est GFR (MDRD) Af Amer Pending Est GFR (MDRD) Non-Af Pending BUN/Creatinine Ratio Pending Glucose Pending Calcium Pending Total Bilirubin Pending AST Pending ALT Pending Alkaline Phosphatase Pending Total Protein Pending Albumin Pending Medical Necessity - Tobacco Use Smoking Status: Former smoker Assessment/Plan ileus versus early postop small bowel obstruction POD # 6 from initial surgical procedure repeat review of initial CAT scan was felt to be postoperative ileus. air-fluid level external to mesh was felt to be air-fluid level in the hernia sac which is known and expected after laparoscopic hernia repair. Mesh is 14 x 18 cm and does not seem to demonstrate on previous CT scan any dehiscence with bowel between the mesh and the true abdominal wall. patient was started on liquids yesterday when he is felt to be clinically improving. Still moving bowels/flatus but vomited Kwame overnight NG tube placed. - large volume output. Repeat CT scan with oral contrast - Still interpreted as a small bowel obstruction. KUB this morning suggestive of contrast to descending colon but still markedly dilated small bowel Discussed with patient and his via phone possibilities of just ileus, mesh displacement with bowel obstruction, occult injury to bowel, adhesion from prior ileocecal resection that now manifested itself. The patient and his understand that this will be an open procedure, that I will remove the mesh and examine the intestine and then repair the defect without mesh. I plan to perform an exploratory laparotomy with mesh removal and primary incisional hernia repair. The patient understands the risks, benefits, possible complications and consents to surgical procedure. SCD's are in place. morning labs are currently pending. Zosyn will be given. Will place espino during the surgical procedure
[2019-01-09] MEDS: 0.9% NaCl Peripheral Flush Adult/Peds IV ×6 (06:32→18:20)
[2019-01-09] MEDS: Lactated Ringers 500 ML 999 ML IV (06:33)
[2019-01-09 06:39] LABS: ALB/GLOB Ratio 0.7 RATIO (0.9-2.4); AST(SGOT) 25 U/L (15-37); Alanine Aminotransfer ALT/SGPT 16 U/L (16-61); Albumin, Serum 2.7 g/dL (3.2-5.0); Alkaline Phosphatase 65 U/L (45-117); Anion Gap 8 (5-15); BUN 19 mg/dL (7-18); Calcium,Total 8.5 mg/dL (8.5-10.1); Chloride 105 mmol/L (98-107); Creatinine, Serum 0.79 mg/dL (0.70-1.30); EST Glomerular Filtration Rate 102 mL/min (>60); Est Glom Filt Rate - Afr Amer 124 mL/min (>60); Estimated Creatinine Clearance 71.12 ml/min; Globulin 3.8 g/dL (2.2-4.2); Glucose 83 mg/dL (74-106); Potassium 3.3 mmol/L (3.5-5.1); Protein, Total 6.5 g/dL (6.4-8.2); Sodium Level 141 mmol/L (136-145)
--- NOTE | 2019-01-09 07:56 | NURSING ---
Pt is off the floor in surgery. Was taken down via bed at approximately at 0720.
[2019-01-09] MEDS: Bupivacaine Mpf 0.5% 30 ML VIAL (08:55)
--- NOTE | 2019-01-09 09:11 | PCA ---
pt off floor
--- NOTE | 2019-01-09 09:39 | PCM.OPRPT ---
Report of Operation Date of Procedure: 01/09/19 Pre-Operative Diagnosis: high grade small bowel obstruction, POD #6 lap incisional hernia repair Post-Operative Diagnosis: high grade small bowel obstruction, POD #6 lap incisional hernia repair, intact hernia repair, single band adhesion omentum to just proximal to ileocecal anastomosis Surgery/Procedure Performed:: exploratory laparotomy, removal of mesh, lysis of adhesion, primarey closure of hernia defect bread supervisor: Tiburcio Truong Type of Anesthesia:: General Anesthesiologist: Butch Pete - ASA2E Specimen's removed: mesh, hernia sac Estimated Blood Loss (mL): 50 Fluids Replaced: 2200 Description of Procedure: The patient was brought to the operating suite. Sign in was performed verifying patient, site, procedure, position, and DVT prophylaxis with SCDs. Patient received Zosyn 4.5 g due to possibility of bowel injury. Following induction of general anesthetic. A De La Cruz catheter was placed. Nasogastric tube was was already in place. The patient?s abdomen was prepped and draped in the usual fashion. Timeout was performed verifying patient, site, position. Incision made through the previous midline incision for the laparoscopic hernia repair performed one week previously and dissection was carried and the hernia sac was entered. There was noted to be a small hematoma in the hernia sac. The mesh was intact. There was no bowel within the hernia sac. At this point, the previously placed 14 x 18 cm ventrio mesh was dissected from it's peritoneal attachments with releasing the many tacks that were placed and sequentially dividing and removing the transfixing Prolene sutures. As the mesh was completely removed, there were no defects at mesh placement along the lateral aspect of the mesh and no areas were small bowel seem to be adherent to the mesh. The mesh was examined after removal and noted to be intact. Visual inspection revealed multiple loops of dilated small bowel. Some serosanguineous fluid without any signs of bile staining or succus in the abdominal cavity. The small bowel was then run from the ligament of Treitz distally. The ileocecal anastomosis was noted in the right lateral to upper quadrant area. There was noted to be a solitary band of omentum to the right retroperitoneum causing the high-grade partial obstruction. This adhesion was lysed. The small bowel was again run with no other abnormalities noted and returned to anatomic position. NG tube was palpated and felt to be in good location the stomach. the hernia sac was then dissected back to clean fascia and excised sharply and using cutting electrocautery. Following this, the fascia was closed with interrupted 0 Prolene [id number] sutures the knots of which were buried. The subcutaneous tissues were then irrigated and skin closed with sharon. The patient was extubated and brought to recovery in stable condition. The patient was brought to recovery room in stable condition. - Admit VTE Documentation VTE Present on Admission: No VTE Mechan Device Prophylaxis: SCD's VTE Pharm Prophylaxis ordered?: No
--- NOTE | 2019-01-09 09:42 | OP.PCM_ITS ---
Report of Operation Date of Procedure: 01/09/19 Pre-Operative Diagnosis: high grade small bowel obstruction, POD #6 lap in cisional hernia repair Post-Operative Diagnosis: high grade small bowel obstruction, POD #6 lap incisional hernia repair, intact hernia repair, single band adhesion omentum to just proximal to ileocecal anastomosis Surgery/Procedure Performed:: exploratory laparotomy, removal of mesh, lysis of adhesion, primarey closure of hernia defect operations support analyst: Tiburcio Truong Type of Anesthesia:: General Anesthesiologist: Butch Pete - ASA2E Specimen's removed: mesh, hernia sac Estimated Blood Loss (mL): 50 Fluids Replaced: 2200 Description of Procedure: The patient was brought to the operating suite. Sign in was performed verifying patient, site, procedure, position, and DVT prophylaxis with SCDs. Patient received Zosyn 4.5 g due to possibility of bowel injury. Following induction of general anesthetic. A De La Cruz catheter was placed. Nasogastric tube was was already in place. The patient?s abdomen was prepped and draped in the usual fashion. Timeout was performed verifying patient, site, position. Incision made through the previous midline incision for the laparoscopic hernia repair performed one week previously and dissection was carried and the hernia sac was entered. There was noted to be a small hematoma in the hernia sac. The mesh was intact. There was no bowel within the hernia sac. At this point, the previously placed 14 x 18 cm ventrio mesh was dissected from it's peritoneal attachments with releasing the many tacks that were placed and sequentially dividing and removing the transfixing Prolene sutures. As the mesh was completely removed, there were no defects at mesh placement along the lateral aspect of the mesh and no areas were small bowel seem to be adherent to the mesh. The mesh was examined after removal and noted to be intact. Visual inspection revealed multiple loops of dilated small bowel. Some serosanguineous fluid without any signs of bile staining or succus in the abdominal cavity. The small bowel was then run from the ligament of Treitz distally. The ileocecal anastomosis was noted in the right lateral to upper quadrant area. There was noted to be a solitary band of omentum to the right retroperitoneum causing the high-grade partial obstruction. This adhesion was lysed. The small bowel was again run with no other abnormalities noted and returned to anatomic position. NG tube was palpated and felt to be in good location the stomach. the hernia sac was then dissected back to clean fascia and excised sharply and using cutting electrocautery. Following this, the fascia was closed with interrupted 0 Prolene [id number] sutures the knots of which were buried. The subcutaneous tissues were then irrigated and skin closed with sharon. The patient was extubated and brought to recovery in stable condition. The patient was brought to recovery room in stable condition. - Admit VTE Documentation VTE Present on Admission: No VTE Mechan Device Prophylaxis: SCD's VTE Pharm Prophylaxis ordered?: No
[2019-01-09] MEDS: Morphine 2 MG/ML Syringe IV ×5 (10:56→22:26)
[2019-01-09] MEDS: Lactated Ringers 1,000 ML 150 ML IV (12:56)
--- NOTE | 2019-01-09 18:28 | NURSING ---
Dr. Pierre aware that pt only had 80cc of urine out in espino between 12pm today and now. LR bolus 500cc now and another 500cc bolus if output not 20ml/hr.
[2019-01-09] MEDS: Lactated Ringers 1,000 ML 999 ML IV (20:36)
[2019-01-10] MEDS: Morphine 2 MG/ML Syringe IV ×8 (00:10→22:20)
[2019-01-10] MEDS: Lactated Ringers 1,000 ML 150 ML IV ×5 (00:11→23:38)
[2019-01-10 02:15] VITALS: BP 135/73; PULSE 89; RESP 18; TEMP 37.1; O2SAT 96
[2019-01-10 06:01] LABS: Absolute Lymphocyte Count 1.11 X10^3/ul (0.83-4.51); Absolute Neutrophil Count 5.6 X10^3/uL (2.0-7.7); Basophil# 0.02 X10^3/uL; Basophil% 0.3 % (0-1); Eosinophil# 0.05 X10^3/uL; Eosinophils% 0.6 % (0-5); Hemoglobin 14.9 g/dl (13.0-16.5); Lymphocyte # 1.11 X10^3/ul (4.0); Lymphocyte % 14.4 % (19-41); Mean Corp Hgb Conc 31.7 g/gl (32-36); Mean Corpuscular Volume 97.7 fL (80-94); Mean Platelet Vol. 9.3 fl (6.2-12.0); Monocyte% 11.7 % (0-10); Neutrophil % 72.6 % (47-70); Platelet Count 163 K/mm3 (150-450); RBC Distribution Width CV 12.3 % (11.6-14.6); RBC Distribution Width SD 43.6 fl (35.1-43.9); Red Blood Count 4.81 M/mm3 (4.6-6.2); White Blood Count 7.7 K/mm3 (4.4-11.0)
[2019-01-10 06:17] LABS: POSITIVE DIFFERENTIAL NO; POSITIVE MORPHOLOGY NO
[2019-01-10 06:24] LABS: Anion Gap 8 (5-15); BUN 23 mg/dL (7-18); Calcium,Total 8.1 mg/dL (8.5-10.1); Chloride 104 mmol/L (98-107); Creatinine, Serum 1.35 mg/dL (0.70-1.30); EST Glomerular Filtration Rate 55 mL/min (>60); Est Glom Filt Rate - Afr Amer 67 mL/min (>60); Estimated Creatinine Clearance 52.68 ml/min; Glucose 115 mg/dL (74-106); Potassium 3.9 mmol/L (3.5-5.1); Sodium Level 142 mmol/L (136-145)
[2019-01-10 06:46] VITALS: O2SAT 94
[2019-01-10 08:16] VITALS: BP 129/82; PULSE 92; RESP 18; TEMP 36.6; O2SAT 95
[2019-01-10 14:16] VITALS: BP 129/77; PULSE 99; RESP 18; TEMP 37.4; O2SAT 94
--- NOTE | 2019-01-10 15:35 | PN.SURG_ITS ---
Subjective: incisional pain but tolerable, Thirsty, concerned about low urine output - Physical Exam General: Alert, Oriented x3, Cooperative Lungs: Clear to auscultation, Normal air movement Cardiovascular: Regular rate, No murmurs Abdomen: Bowel Sounds Present, Soft, Hypoactive Bowel Sounds Vital Signs Temp Pulse Resp BP Pulse Ox 99.3 F H 99 18 129/77 H 94 01/10/19 14:16 01/10/19 14:16 01/10/19 14:16 01/10/19 14:16 01/10/19 14:16 Oxygen Flow Rate (L/min) 2 Oxygen Delivery Method Nasal Cannula Weight: 84.6 kg Body Mass Index (BMI) 25.9 Intake and Output for Last 24 Hours 01/08/19 01/09/19 01/10/19 23:59 23:59 23:59 Intake Total 2610 / 2610 6194 / 6194 5566 / 5566 Output Total 1825 / 1825 1635 / 1635 3380 / 3380 Balance 785 / 785 4559 / 4559 2186 / 2186 Laboratory Tests Past 24 Hrs 01/10/19 01/10/19 05:25 05:25 WBC 7.7 RBC 4.81 Hgb 14.9 Hct 47.0 MCV 97.7 H MCH 31.0 MCHC 31.7 L RDW 12.3 RDW Differential 43.6 Plt Count 163 MPV 9.3 Immature Gran % (Auto) 0.400 Neut % (Auto) 72.6 H Lymph % (Auto) 14.4 L [place] % (Auto) 11.7 H Eos % (Auto) 0.6 Baso % (Auto) 0.3 Absolute Neuts (auto) 5.6 Absolute Lymphs (auto) 1.11 Total Counted Not Reportable Sodium 142 Potassium 3.9 Chloride 104 Carbon Dioxide 30.0 Anion Gap 8 BUN 23 H Creatinine 1.35 H Estim Creat Clear Calc 52.68 Est GFR (MDRD) Af Amer 67 Est GFR (MDRD) Non-Af 55 L BUN/Creatinine Ratio 17.0 Glucose 115 H Calcium 8.1 L Medical Necessity - Tobacco Use Smoking Status: Former smoker Assessment/Plan ileus versus early postop small bowel obstruction POD # 7 from initial surgical procedure, POD # 1 s/p exploratory laparotomy - lysis of single band adhesion near ileocecal anastomosis causing bowel obstruction-removal of mesh and primary closure patient urine output still decreased but improving, BUN and creatinine increased but expect this to improve given hydration Encourage ambulation and incentive spirometry use. NG will be continued to suction. Allowed patients to have sips and chips- patient drinking large amount of liquid-we'll subtract from total NG output. Await return of bowel function prior to removal of NG tube Once bowel function has returned, will restart Flomax. Will likely require De La Cruz catheter at discharge.
[2019-01-10 20:01] VITALS: BP 116/77; PULSE 102; RESP 18; TEMP 37.1; O2SAT 94
[2019-01-11] VITALS (11 sets, daily range): BP systolic 104–151; BP diastolic 65–99; PULSE 89–99; RESP 18–24; TEMP 36.4–37.1; O2SAT 83–95
[2019-01-11 05:51] LABS: Basophil# 0.04 X10^3/uL; Basophil% 0.5 % (0-1); Eosinophil# 0.17 X10^3/uL; Hematocrit 39.9 % (40-54); Hemoglobin 12.8 g/dl (13.0-16.5); Lymphocyte % 16.6 % (19-41); Mean Corp Hgb Conc 32.1 g/gl (32-36); Mean Corpuscular Hgb 31.7 pg (27.0-32.0); Mean Corpuscular Volume 98.8 fL (80-94); Mean Platelet Vol. 9.5 fl (6.2-12.0); Monocyte# 0.81 X10^3/uL; Monocyte% 9.6 % (0-10); Neutrophil # 5.96 X10^3/uL (2.7-7.7); Neutrophil % 70.9 % (47-70); Platelet Count 131 K/mm3 (150-450); RBC Distribution Width CV 12.5 % (11.6-14.6); RBC Distribution Width SD 45.5 fl (35.1-43.9); Red Blood Count 4.04 M/mm3 (4.6-6.2); White Blood Count 8.4 K/mm3 (4.4-11.0)
[2019-01-11 06:01] LABS: POSITIVE COUNT NO; POSITIVE DIFFERENTIAL NO; POSITIVE MORPHOLOGY NO
[2019-01-11] MEDS: Lactated Ringers 1,000 ML 150 ML IV (06:01)
[2019-01-11 06:16] LABS: Anion Gap 5 (5-15); BUN 19 mg/dL (7-18); BUN/Creat Ratio 18.4 RATIO (10-20); Chloride 104 mmol/L (98-107); Creatinine, Serum 1.03 mg/dL (0.70-1.30); EST Glomerular Filtration Rate 75 mL/min (>60); Est Glom Filt Rate - Afr Amer 91 mL/min (>60); Estimated Creatinine Clearance 69.05 ml/min; Glucose 107 mg/dL (74-106); Potassium 3.4 mmol/L (3.5-5.1); Sodium Level 142 mmol/L (136-145)
[2019-01-11] MEDS: BENZOCAINE/MENTHOL 1 LOZENGE MUCOUS MEM (08:57)
[2019-01-11] MEDS: Morphine 2 MG/ML Syringe IV (17:46)
[2019-01-11] MEDS: 0.9% NaCl Peripheral Flush Adult/Peds IV (17:48)
--- NOTE | 2019-01-11 18:50 | PN.SURG_ITS ---
Subjective: no flatus, no bowel movement, still worried about dehydration - Physical Exam General: Alert, Oriented x3, Cooperative Lungs: Clear to auscultation, Normal air movement Cardiovascular: Regular rate, Regular Rhythm Abdomen: Bowel Sounds Present, Soft, Hypoactive Bowel Sounds, Tender - at incision, - - NG output mostly dilute water Vital Signs Temp Pulse Resp BP Pulse Ox 97.7 F L 99 24 H 151/99 H 93 01/11/19 17:34 01/11/19 17:34 01/11/19 17:34 01/11/19 17:34 01/11/19 14:43 Oxygen Flow Rate (L/min) 4 Oxygen Delivery Method Nasal Cannula Weight: 84.6 kg Body Mass Index (BMI) 25.9 Intake and Output for Last 24 Hours 01/09/19 01/10/19 01/11/19 23:59 23:59 23:59 Intake Total 6194 / 6194 7229 / 7229 3377 / 3377 Output Total 1635 / 1635 4480 / 4480 2024 / 2024 Balance 4559 / 4559 2749 / 2749 1352 / 1352 Laboratory Tests Past 24 Hrs 01/11/19 01/11/19 05:25 05:25 WBC 8.4 RBC 4.04 L Hgb 12.8 L Hct 39.9 L MCV 98.8 H MCH 31.7 MCHC 32.1 RDW 12.5 RDW Differential 45.5 H Plt Count 131 L MPV 9.5 Immature Gran % (Auto) 0.400 Neut % (Auto) 70.9 H Lymph % (Auto) 16.6 L [place] % (Auto) 9.6 Eos % (Auto) 2.0 Baso % (Auto) 0.5 Absolute Neuts (auto) 6.0 Absolute Lymphs (auto) 1.40 Total Counted Not Reportable Sodium 142 Potassium 3.4 L Chloride 104 Carbon Dioxide 33.0 H Anion Gap 5 BUN 19 H Creatinine 1.03 Estim Creat Clear Calc 69.05 Est GFR (MDRD) Af Amer 91 Est GFR (MDRD) Non-Af 75 BUN/Creatinine Ratio 18.4 Glucose 107 H Calcium 8.0 L Medical Necessity - Tobacco Use Smoking Status: Former smoker Assessment/Plan ileus versus early postop small bowel obstruction POD # 8 from initial surgical procedure, POD # 2 s/p exploratory laparotomy - lysis of single band adhesion near ileocecal anastomosis causing bowel obstruction-removal of mesh and primary closure patient urine output still decreased but improving, BUN and creatinine improved given hydration Encourage ambulation and incentive spirometry use. NG will be continued to suction. Allowed patients to have sips and chips- patient drinking large amount of liquid-we'll subtract from total NG output. Await return of bowel function prior to removal of NG tube Once bowel function has returned, will restart Flomax. Will likely require De La Cruz catheter at discharge.
[2019-01-12] VITALS (11 sets, daily range): BP systolic 114–143; BP diastolic 77–86; PULSE 80–90; RESP 18–20; TEMP 36.7–37; O2SAT 89–95
[2019-01-12] MEDS: Acetaminophen 325 MG Tablet PO ×4 (08:52→22:43)
[2019-01-12] MEDS: Ensure Clear 120 ML Liquid PO ×4 (08:53→22:03)
--- NOTE | 2019-01-12 18:04 | PCM.PN.SRG ---
Subjective: passing flatus and 2 bowel movements overnight - Physical Exam General: Alert, Oriented x3, Cooperative Lungs: Clear to auscultation, Normal air movement Cardiovascular: Regular rate, No murmurs Abdomen: Bowel Sounds Present, Soft, Hypoactive Bowel Sounds, Tender - long incisions Vital Signs Temp Pulse Resp BP Pulse Ox 98.4 F 85 20 H 114/77 93 01/12/19 13:30 01/12/19 13:30 01/12/19 13:30 01/12/19 13:30 01/12/19 13:30 Oxygen Flow Rate (L/min) 3 Oxygen Delivery Method Room Air Weight: 84.6 kg Body Mass Index (BMI) 25.9 Intake and Output for Last 24 Hours 01/10/19 01/11/19 01/12/19 23:59 23:59 23:59 Intake Total 7229 / 7229 3407 / 3407 2197 / 2197 Output Total 4480 / 4480 2025 / 2025 1125 / 1125 Balance 2749 / 2749 1382 / 1382 1072 / 1072 Medical Necessity - Tobacco Use Smoking Status: Former smoker Assessment/Plan ileus versus early postop small bowel obstruction POD # 9 from initial surgical procedure, POD # 3 s/p exploratory laparotomy - lysis of single band adhesion near ileocecal anastomosis causing bowel obstruction-removal of mesh and primary closure patient urine output improving, will recheck BUN and creatinine tomorrow Encourage ambulation and incentive spirometry use. NG removed. We will limit clears to about 1000 cc given the amount he was drinking with the NG tube and start and ensure clear as a supplement. Restart Flomax. Will likely require De La Cruz catheter at discharge.
[2019-01-12] MEDS: Escitalopram Oxalate 10 MG Tablet PO (22:03)
[2019-01-12] MEDS: Tamsulosin HCl 0.4 MG Capsule PO (22:03)
[2019-01-13 02:15] VITALS: BP 119/77; PULSE 82; RESP 18; TEMP 37.1; O2SAT 93
[2019-01-13 02:29] VITALS: RESP 18; O2SAT 93
[2019-01-13] MEDS: Acetaminophen 325 MG Tablet PO ×2 (02:56→07:01)
[2019-01-13 05:44] LABS: Absolute Lymphocyte Count 1.73 X10^3/ul (0.83-4.51); Absolute Neutrophil Count 5.7 X10^3/uL (2.0-7.7); Basophil# 0.03 X10^3/uL; Basophil% 0.4 % (0-1); Eosinophil# 0.25 X10^3/uL; Eosinophils% 2.9 % (0-5); Hematocrit 43.6 % (40-54); Hemoglobin 13.9 g/dl (13.0-16.5); Lymphocyte # 1.73 X10^3/ul (4.0); Lymphocyte % 20.3 % (19-41); Mean Corp Hgb Conc 31.9 g/gl (32-36); Mean Corpuscular Hgb 31.4 pg (27.0-32.0); Mean Corpuscular Volume 98.4 fL (80-94); Mean Platelet Vol. 10.1 fl (6.2-12.0); Monocyte% 9.4 % (0-10); Neutrophil # 5.65 X10^3/uL (2.7-7.7); Neutrophil % 66.4 % (47-70); Platelet Count 143 K/mm3 (150-450); RBC Distribution Width CV 12.5 % (11.6-14.6); RBC Distribution Width SD 45.3 fl (35.1-43.9); Red Blood Count 4.43 M/mm3 (4.6-6.2); White Blood Count 8.5 K/mm3 (4.4-11.0)
[2019-01-13 05:53] LABS: ALB/GLOB Ratio 0.7 RATIO (0.9-2.4); AST(SGOT) 24 U/L (15-37); Alanine Aminotransfer ALT/SGPT 16 U/L (16-61); Albumin, Serum 2.4 g/dL (3.2-5.0); Alkaline Phosphatase 53 U/L (45-117); Anion Gap 6 (5-15); BUN 9 mg/dL (7-18); Calcium,Total 8.3 mg/dL (8.5-10.1); Chloride 110 mmol/L (98-107); EST Glomerular Filtration Rate 88 mL/min (>60); Est Glom Filt Rate - Afr Amer 107 mL/min (>60); Estimated Creatinine Clearance 79.02 ml/min; Globulin 3.6 g/dL (2.2-4.2); Glucose 138 mg/dL (74-106); Potassium 3.4 mmol/L (3.5-5.1); Sodium Level 143 mmol/L (136-145)
[2019-01-13 05:54] LABS: POSITIVE COUNT NO; POSITIVE DIFFERENTIAL NO; POSITIVE MORPHOLOGY NO
[2019-01-13 07:02] VITALS: O2SAT 92
--- NOTE | 2019-01-13 07:38 | DCINST_ITS ---
You will use the following diet at home:: Full liquid - low residue through the weekend, then advance as tolerated Discharge Activity: Return to Normal Activity, May Drive, May Shower May shower in (days): 0 - now Weight Bearing Status: Weight bearing as tolerated Call your doctor if your incision/area has: Continuous Slow Oozing, Sudden Increased Bleeding, Increased Redness Call your doctor if you observe: Fever of 101 or Higher, Coldness, Increased Pain, Change in Color, Inability to urinate, Inability to have a bowel movement Allergies/Adverse Reactions: Allergies No Known Allergies Allergy (Verified 01/06/19 05:01) Medications to take at Discharge Ascorbic Acid [Vitamin C] 1,000 mg PO DAILY 12/27/18 Atorvastatin Calcium [Lipitor] 20 mg PO QHS 12/27/18 Calcium Carbonate [Calcium] 500 mg PO DAILY 12/27/18 Cholecalciferol (Vitamin D3) [Vitamin D3] 400 unit PO DAILY 12/27/18 Escitalopram Oxalate [Lexapro] 10 mg PO QHS 12/27/18 Glucosamine HCl/Chondroitin Suresh [Glucosamine-Chondroitin Cap] 1 each PO BID 12/27/18 Multivitamin [Multiple Vitamins] 1 each PO DAILY 12/27/18 Tamsulosin HCl [Flomax] 0.4 mg PO QHS 12/27/18 Acetaminophen [Tylenol Tablet] 325 mg PO Q4H PRN PRN tablet 01/13/19 Ibuprofen [Motrin] 400 mg PO Q6H PRN PRN tablet 01/13/19 Primary Care Physician: Nishant Kwok MD [Primary Care Provider] - Test Results: Test results from this visit will be discussed in further detail at your follow- up appointment, if applicable. Please Follow Up With: Ruel Pierre MD When: Thursday
[2019-01-13 08:37] VITALS: BP 122/62; PULSE 84; RESP 18; TEMP 36.6; O2SAT 95
[2019-01-13 09:15] VITALS: O2SAT 92; O2SAT 95
[2019-01-13 13:45] VITALS: BP 98/60; PULSE 76; RESP 18; TEMP 36.4; O2SAT 95
--- NOTE | 2019-01-19 09:59 | PCM.DC.SUM ---
Discharge Date and Diagnosis Date of Admission: 01/06/19 Date of Discharge: 01/13/19 - Primary Discharge Diagnosis small bowel obstruction Hospital Course and Treatment Operations: herniorrhaphy, - - small bowel lysis of adhesions Summary of Care Provided: The patient is a 73 year old M who was s/p a laparoscopic incisional hernia repair on January 03 who returned with a ileus versus obstruction. He failed to improve and was returned to the operating suite on January 09. He was found to have a single band adhesion from his prior ileocecal resection without any adhesions to the prior mesh, but had to have the prior mesh removed and underwnet a simple closure. He did well and was discharged to home on POD # 4 - Physical Exam General: Alert, Oriented x3 Lungs: Clear to auscultation, Normal air movement Cardiovascular: Regular rate, No murmurs Abdomen: Bowel Sounds Present, Soft, Tender - at incision Vital Signs Temp Pulse Resp BP Pulse Ox 97.6 F L 76 18 98/60 95 01/13/19 13:45 01/13/19 13:45 01/13/19 13:45 01/13/19 13:45 01/13/19 13:45 Oxygen Flow Rate (L/min) [ 0 AMBULATING on Room Air] Oxygen Flow Rate (L/min) [At 0 REST on Room Air] Oxygen Flow Rate (L/min) 3 Oxygen Delivery Method Room Air Weight: 84.6 kg Body Mass Index (BMI) 25.9 Discharge Activity: Return to Normal Activity, May Drive, May Shower May shower in (days): 0 - now Weight Bearing Status: Weight bearing as tolerated Call your doctor if your incision/area has: Continuous Slow Oozing, Sudden Increased Bleeding, Increased Redness Call your doctor if you observe: Fever of 101 or Higher, Coldness, Increased Pain, Change in Color, Inability to urinate, Inability to have a bowel movement Home Medications: Medications to take at Discharge Ascorbic Acid [Vitamin C] 1,000 mg PO DAILY 12/27/18 Atorvastatin Calcium [Lipitor] 20 mg PO QHS 12/27/18 Calcium Carbonate [Calcium] 500 mg PO DAILY 12/27/18 Cholecalciferol (Vitamin D3) [Vitamin D3] 400 unit PO DAILY 12/27/18 Escitalopram Oxalate [Lexapro] 10 mg PO QHS 12/27/18 Glucosamine HCl/Chondroitin Suresh [Glucosamine-Chondroitin Cap] 1 each PO BID 12/27/18 Multivitamin [Multiple Vitamins] 1 each PO DAILY 12/27/18 Tamsulosin HCl [Flomax] 0.4 mg PO QHS 12/27/18 Acetaminophen [Tylenol Tablet] 325 mg PO Q4H PRN PRN tablet 01/13/19 Ibuprofen [Motrin] 400 mg PO Q6H PRN PRN tablet 01/13/19 Primary Care Physician: Nishant Kwok MD [Primary Care Provider] - Please Follow Up With: Ruel Pierre MD When: Thursday Medical Necessity - Tobacco Use Smoking Status: Former smoker Meaningful Use Info Meaningful Use Diagnoses (Choose all that apply): None applicable
== END 2019-01-13 14:10 | disposition home or self-care (01) | DRG 337 ==
LOC: ED 05:15 → MS3 09:44
PROVIDERS: Admitting Provider Surgery; Emergency Provider Emergency Medicine; Family Provider Family Medicine; PCP Family Medicine; Visit Provider Surgery
PROC: 0DNU0ZZ Release Omentum, Open Approach (ICD-10-PCS; CPT 49000; principal; 2019-01-09 07:00)
DX: K56.51 Intestinal adhesions [bands], with partial obstruction (principal); Z87.891 Personal history of nicotine dependence; G14 Postpolio syndrome
CPT/HCPCS: 36415; 74018; 74019; 74176; 74177; 80048; 80053; 83605; 85025; 88302; 88305; 93005; 99285; J7120; Q9967; A4216; C1781; J2405; J7799

== ENCOUNTER 2021-03-15 12:56 | Emergency (ER) | payer MEDICARE, OTHER, SELFPAY ==
[2019-01-09 06:33] VITALS: BMI 25.9
[2021-03-15 12:56] VITALS: BP 120/71; PULSE 79; RESP 18; TEMP 36.6; O2SAT 96; BMI 30.2
--- NOTE | 2021-03-15 13:12 | EDS_ITS ---
HPI History of Present Illness Chief Complaint: Dizziness Detail of Chief Complaint: Room spinning dizziness Informant: patient Onset/Context/Timing Onset: Yesterday Context: Sudden Onset Timing: Intermittent Current Severity: Mild Maximum Severity: Mild Narrative Narrative: Healthy 76-year-old male history of high cholesterol, BPH and Parkinson's disease. States yesterday morning when he got out of bed he noticed some room spinning dizziness. Denies being lightheaded. No recent illness. He fell about a month and a half ago had a head injury at that time but nothing since. Denies headaches. Denies any strokelike symptoms. No visual change. He is on no blood thinners. States that the dizziness is worse with head movement. Prior similar symptoms: No Recent Illness/Hospitalization: No PFSH PFSH Medical History BPH (benign prostatic hyperplasia) Parkinson's disease Home Medications ascorbic acid (vitamin C) 1,000 mg PO DAILY 12/27/18 [History Last Taken Unknown] atorvastatin [Lipitor] 20 mg PO QHS 12/27/18 [History Last Taken 01/05/19 2100] calcium carbonate 500 mg PO DAILY 12/27/18 [History Last Taken Unknown] cholecalciferol (vitamin D3) [Vitamin D3] 400 unit PO DAILY 12/27/18 [History Last Taken Unknown] escitalopram oxalate 10 mg PO QHS 12/27/18 [History Last Taken 01/05/19 2100] glucosamine-chondroitin 1 ea PO BID 12/27/18 [History Last Taken Unknown] multivitamin [Multiple Vitamins] 1 ea PO DAILY 12/27/18 [History Last Taken Unknown] tamsulosin 0.4 mg PO QHS 12/27/18 [History Last Taken 01/05/19 2100] acetaminophen [Tylenol] 325 mg PO Q4H PRN PRN tablet 01/13/19 [Rx Last Taken Unknown] ibuprofen 400 mg PO Q6H PRN PRN tablet 01/13/19 [Rx Last Taken Unknown] carbidopa-levodopa tab 03/15/21 [History Last Taken Unknown] meclizine 25 mg PO TID PRN #14 tab 03/15/21 [Rx Last Taken Unknown] Allergy/AdvReac Type Severity Reaction Status Date / Time No Known Allergies Allergy Verified 03/15/21 13:06 Social History Smoking Status: Former smoker ROS ROS ED ROS Narrative Denies any recent illness. Denies nausea, vomiting, diarrhea, fever, headache, chest pain, abdominal pain or shortness of breath. Review of Systems ROS Unobtainable: Denies due to encephalopathy Constitutional Constitutional ED: Denies fever(s) Eyes Eyes: Denies change in vision ENT ENT ED: Denies ear pain or sore throat Cardiovascular Cardiovascular: Denies chest pain or palpitations Respiratory/Chest Respiratory/Chest: Denies dyspnea Gastrointestinal Gastrointestinal: Denies abdominal pain, constipation, diarrhea, nausea or vomiting Genitourinary Genitourinary ED: Denies dysuria Musculoskeletal Musculoskeletal: Denies myalgias Integumentary Denies rash Neurologic Neurologic: Denies headache(s) Psychiatric Psychiatric: Denies depression Endocrine Endocrinology: Denies polyuria Allergic/Immunologic Allergic/Immunologic ED: Denies urticaria EXAM Physical Exam Narrative Exam Narrative: Older male no acute distress. Vital signs stable afebrile. Exam unremarkable. Positive Hallpike with head movement is dizziness comes on and gets worse. Otherwise his neurologic exam is completely normal. NIH is 0. Equal symmetrical director it project strength. Equal symmetrical fingertip to nose. Dorsi plantar flexion intact. No facial droop. Normal speech. Normal strength bilaterally. Const Vital Signs: 03/15/21 12:56 03/15/21 14:46 Temperature 97.8 F Temperature Source Temporal Pulse Rate 79 66 Respiratory Rate 18 17 Blood Pressure 120/71 133/78 H Blood Pressure Mean 87 96 Pulse Ox 96 97 Oxygen Delivery Method Room Air Room Air Positive well nourished and well developed General Appearance ED: well developed HEENT Reports moist mucous membranes Negative for trauma or tenderness Eyes PERRL and EOMs intact bilaterally Eyes Narrative: TMs and canals clear. No wax impaction. Neck no lymphadenopathy, supple and no JVD General: Negative for tenderness Chest Wall inspection of chest normal and palpation of chest normal Resp normal respiratory effort and clear to auscultation bilaterally Cardio regular rate, regular rhythm, S1 normal heart sound, S2 normal heart sound and no murmurs GI normal to inspection, nondistended, normoactive bowel sounds, non-tender, non- distended and no masses Auscultation: normoactive bowel sounds Palpation: soft; Negative for tender, guarding or rebound tenderness present Back/Spine no CVA tenderness Extremity normal to inspection General Extremety ED: Negative for edema or tenderness General Extremity: Negative for edema Neuro oriented x3 and CN's II-XII intact bilaterally Sensorium / Orientation: alert Motor Exam: strength 5/5 throughout Psych mental status grossly normal Skin no rashes or lesions noted MDM MDM MDM Narrative Medical decision making narrative: Older male exam and history are consistent with benign positional vertigo. Neurologic exam normal. CAT scan labs being obtained. Treated with p.o. Valium. Repeat exam at 4:00 patient is doing well. Says he feels better after the medication. His neurologic exam remains normal. He and I went over his test results. Lab Data Lab results narrative: CBC normal with a white count of 4 hemoglobin 13. Chemistries normal. Normal gap. Normal creatinine. CAT scan of the brain shows chronic changes no acute process read by the radiologist and reviewed by me. Labs: Laboratory Results - last 24 hr 03/15/21 03/15/21 13:28 13:28 WBC 4.8 RBC 4.16 L Hgb 13.6 Hct 41.7 MCV 100.2 H MCH 32.7 H MCHC 32.6 RDW Std Deviation 45.8 H RDW Coeff of [place] 12.3 Plt Count 203 MPV 9.0 Immature Gran % (Auto) 0.400 Neut % (Auto) 57.3 Lymph % (Auto) 29.5 [place] % (Auto) 10.1 H Eos % (Auto) 1.9 Baso % (Auto) 0.8 Absolute Neuts (auto) 2.8 Absolute Lymphs (auto) 1.43 Nucleated RBC % 0 Sodium 140 Potassium 4.0 Chloride 103 Carbon Dioxide 30.0 Anion Gap 7 BUN 19 H Creatinine 1.22 Estim Creat Clear Calc 55.72 Est GFR (MDRD) Af Amer 74 Est GFR (MDRD) Non-Af 62 BUN/Creatinine Ratio 15.6 Glucose 101 Calcium 9.1 Radiography Diagnostic Testing: Radiology Impression Brain CT 03/15/21 13:29 IMPRESSION: Chronic involutional changes of the brain. Electronically Signed: Allen Strong MD at 14:07 EDT , Service support , Discharge Plan Triage Chief Complaint: Dizziness ED Provider: Rajat Carlin Dx/Rx/DC Orders Instructions: ED BPV Vertigo Prescriptions: New meclizine 25 mg tablet 25 mg PO TID PRN (Reason: dizziness) Qty: 14 RF: 0 No Action multivitamin [Multiple Vitamins] 1 EACH tablet 1 ea PO DAILY RF: 0 atorvastatin [Lipitor] 20 MG tablet 20 mg PO QHS RF: 0 ascorbic acid (vitamin C) 1,000 MG tablet extended release 1,000 mg PO DAILY RF: 0 tamsulosin 0.4 MG capsule 0.4 mg PO QHS RF: 0 calcium carbonate 500 MG tablet,chewable 500 mg PO DAILY RF: 0 cholecalciferol (vitamin D3) [Vitamin D3] 400 UNIT tablet 400 unit PO DAILY RF: 0 glucosamine-chondroitin 1 EACH capsule 1 ea PO BID RF: 0 escitalopram oxalate 10 MG tablet 10 mg PO QHS RF: 0 acetaminophen [Tylenol] 325 MG tablet 325 mg PO Q4H PRN PRN (Reason: Pain) RF: 0 ibuprofen 400 MG tablet 400 mg PO Q6H PRN PRN (Reason: Mild Pain (-12/19)) RF: 0 carbidopa-levodopa 25-100 mg tablet RF: 0 Primary Care Provider: Nishant Kwok Referrals: Nishant Kwok MD [Primary Care Provider] - 3-5 Days if not improving Activity Restrictions/Additional Instructions: Antivert as needed for dizziness. Return if you are feeling a lot worse. Follow-up with primary care physician not improving. Your labs and CAT scan today were normal. Disposition Disposition: Home, self care
[2021-03-15] MEDS: diazePAM 5 MG Tablet 2.5 MG PO (13:17)
--- NOTE | 2021-03-15 13:29 | CT_ITS ---
STUDY: CT BRAIN WITHOUT CONTRAST REASON FOR EXAM: Male, 76 years old. Dizziness RADIATION DOSAGE (If Supplied By Facility): CTDIvol = ( 44.99 ) mGy, DLP = ( 846.73 ) mGycm TECHNIQUE: Transaxial CT imaging of the brain was performed without administration of intravenous contrast material. Individualized dose optimization techniques were used for this CT. COMPARISON: No relevant priors. FINDINGS: Normal soft tissue structures. Normal calvarium. There is mild cerebral atrophy with widening of the extra-axial spaces and ventricular dilatation. There are areas of decreased attenuation within the white matter tracts of the supratentorial brain, consistent with microvascular disease changes. Normal basal ganglia and thalami. Normal brainstem. Normal cerebellum. There is no intracranial hemorrhage. There are no findings of an acute ischemic infarction. Normal visualized paranasal sinuses. CT/Brain/Head without Contrast IMPRESSION: Chronic involutional changes of the brain. Electronically Signed: Allen Strong MD at 14:07 EDT , Service support ,
[2021-03-15 13:34] LABS: Absolute Lymphocyte Count 1.43 X10^3/uL (0.83-4.51); Absolute Neutrophil Count 2.8 X10^3/uL (2.0-7.7); Basophil# 0.04 X10^3/uL; Basophil% 0.8 % (0-1); Eosinophil# 0.09 X10^3/uL; Eosinophils% 1.9 % (0-5); Hematocrit 41.7 % (40-54); Hemoglobin 13.6 g/dL (13.0-16.5); Lymphocyte # 1.43 X10^3/ul (0.83-4.51); Lymphocyte % 29.5 % (19-41); Mean Corp Hgb Conc 32.6 g/dL (32-36); Mean Corpuscular Hgb 32.7 pg (27.0-32.0); Mean Corpuscular Volume 100.2 fL (80-94); Monocyte# 0.49 X10^3/uL; Monocyte% 10.1 % (0-10); NRBC Flagged by Analyzer 0 % (0-5); Neutrophil # 2.77 X10^3/uL (2.7-7.7); Neutrophil % 57.3 % (47-70); Platelet Count 203 K/mm3 (150-450); RBC Distribution Width CV 12.3 % (11.6-14.6); RBC Distribution Width SD 45.8 fl (35.1-43.9); Red Blood Count 4.16 M/mm3 (4.6-6.2); White Blood Count 4.8 K/mm3 (4.4-11.0)
[2021-03-15 13:44] LABS: Anion Gap 7 (5-15); BUN 19 mg/dL (7-18); BUN/Creat Ratio 15.6 RATIO (10-20); Calcium,Total 9.1 mg/dL (8.5-10.1); Chloride 103 mmol/L (98-107); Creatinine, Serum 1.22 mg/dL (0.70-1.30); EST Glomerular Filtration Rate 62 mL/min (>60); Est Glom Filt Rate - Afr Amer 74 mL/min (>60); Estimated Creatinine Clearance 55.72 ml/min; Glucose 101 mg/dL (74-106); Sodium Level 140 mmol/L (136-145)
[2021-03-15 14:46] VITALS: BP 133/78; PULSE 66; RESP 17; O2SAT 97
[2021-03-15 16:04] VITALS: BP 128/79; PULSE 70; RESP 17
[2021-03-15 16:11] VITALS: BP 128/79; PULSE 72; RESP 18
== END 2021-03-15 16:12 | disposition home or self-care (01) ==
PROVIDERS: Emergency Provider Emergency Medicine; PCP Family Medicine
DX: R42 Dizziness and giddiness (principal); G20 Parkinson's disease; Z87.891 Personal history of nicotine dependence
CPT/HCPCS: 70450; 80048; 85025; 99284; A4216

== ENCOUNTER 2021-04-05 13:00 | Outpatient (RCR) | payer MEDICARE, OTHER, SELFPAY ==
--- NOTE | 2021-04-02 12:40 | HP.PTEVAL ---
Patient's Visit Information CLAUDIA VILLARREAL is a 76 year old M referred to Physical Therapy by Dr. Andrei Lezama MD with a diagnosis of BPPV. Date of Evaluation: 04/02/21 Physical Therapist: Butch Hernandez, MARISOL, OCS, CSCS - Visit Plan Frequency: 1-2x /Week Duration: 2-4 Weeks Plan: 1-2x/week for 2-4 weeks as needed. for. positional treatments as needed. - Subjective I started having vertigo 3 weeks ago out of nowhere. Woke up dizzy after stepping out of bed and almost fell over. Went to ER and had catscan and r/o brain problems. Gave pills of antihistamine which helped a little but did not cure him. Went to local doctor Teja who investigated and gave 6 weeks worth of pills of the same variety. Symptoms are better today. Overall feels weird and moving if he moves his head up and down or in circles. Pretty normal if doesn't move head. Head moves and he gets slightly dizzy. Bending over will casue funny feeling in head for 15 seconds or so. Not noticing it lying down , maybe if rolls over. Has Parkinsons Disease and is weaker than he should be. Balance feels not as good as it should be. Has to be careful. No falls lately sicne this started. Sleep is OK. Keeps him from working hard with lots of speed or head movements. Basic ADLs are all going OK. Has steps at home and has to be careful. - Objective Walks normally adn safely into PT today. Trasnfers chair without UE. Steps reciprocal without rail today. cervical aROM WFL adn without pain, UE AROM WNL, strength UE 4/5. + L Hallpike harsha for 12 seconds obvious up torsional nystagmus . Treated with Justyn adn then - hallpike harsha test L. - Balance Scores Functional Gait Assessment Score: 28 % Disability: 6.6700 - Goals Goal 1:: Abolish dizzyness Goal Time Frame: 2-4 Weeks Goal 2:: Back to 100% normal activity Goal Time Frame: 2-4 Weeks - Rehabilitation Potential Physical Therapy Diagnosis: BPPV L post canal. Rehabilitation Potential: Good - Anticipated Interventions Patient/Client Instruction: Educate patient on: Condition, Plan of Care For the Purpose of:: To increase tolerance to activity/condition/position Comment: dizzyness For the Purpose of:: To increase tolerance to activity/condition/position, To improve ability of physical actions for home/community/work/leisure Thank you for the opportunity to evaluate your patient. For Medicare and Medicare HMO plans, please review the plan of care and approve it. It will need to be FAXED BACK to us at [phone] for Medicare purposes. For Medicare only, by signing this I certify the plan of care. Please let me know if there are questions or concerns regarding this plan of care. Physician Signature: Date:
--- NOTE | 2021-05-17 12:38 | HP.PT.NRP ---
CLAUDIA VILLARREAL was seen in my office for initial evaluation on 04/02/21. The following Plan of Care was established for this patient: Initial Frequency: 1-2x /Week Initial Duration: 2-4 Weeks Patient/Client Instruction: Educate patient on: Condition, Plan of Care For the Purpose of:: To increase tolerance to activity/condition/position For the Purpose of:: To increase tolerance to activity/condition/position, To improve ability of physical actions for home/community/work/leisure This patient was last seen in our office 04/05/21. Pertinent comments regarding their Physical therapy will appear below: Pt seen for two visits of positional treatment and exercise. He was 70% better. He wished to continue with the exercises at home and would call if he needed to return. at this point, it has been nearly 6 weeks and I will discontinue from my care. At this point I will be discontinuing this patient from physical therapy. I would be happy to see this patient again in the future if found appropriate by the physician. Thank you! Butch Hernandez, DPT, OCS, CSCS Balance/Gait/Functional tests - Balance/Special Test Scores Functional Gait Assessment Score: 28 % Disability: 6.6700 Dizziness Score: 36
== END 2021-04-05 19:00 | disposition home or self-care (01) ==
LOC: PT 13:00
PROVIDERS: PCP Family Medicine; Referring Provider Family Medicine; Visit Provider Family Medicine
DX: H81.10 Benign paroxysmal vertigo, unspecified ear (principal)
CPT/HCPCS: 97161; 97530

== ENCOUNTER 2022-12-03 09:20 | Emergency (ER) | payer MEDICARE, OTHER, SELFPAY ==
[2022-12-03 09:21] VITALS: BP 123/85; PULSE 87; RESP 16; TEMP 36.3; O2SAT 100
--- NOTE | 2022-12-03 09:33 | EX.ED.GUMALE ---
HPI History of Present Illness Chief Complaint: Complaint Narrative Narrative: 77-year-old male presenting with hematuria. He states he was diagnosed with a UTI 2 days ago and started on Bactrim. He states he developed a UTI because he was using a urethral sound device. He states this is a device to stick in urethra. He states that he was using this to improve his sex life. He also states it was a big mistake. He states that now with the dysuria and him dysuria he is unable to get to the bathroom in time. Patient states he had to hold his penis yesterday to get to the bathroom on time and when he got there there was some blood in urine. He was specifically told by the urgent care that if he develops hematuria he should not go back there and should come to the emergency room. He does not have any abdominal pain. No systemic signs or symptoms. No nausea or vomiting. He states he has not been using this device in about 8 days. [facility] Medical History BPH (benign prostatic hyperplasia) Parkinson's disease Home Medications ascorbic acid (vitamin C) 1,000 mg tablet,extended release 1,000 mg PO DAILY 12/27/18 [History Last Taken Unknown] atorvastatin 20 mg tablet (Lipitor) 20 mg PO QHS CHOLESTEROL 12/27/18 [History Last Taken 01/05/19 2100] calcium carbonate 500 mg calcium (1,250 mg) chewable tablet 500 mg PO DAILY 12/27/18 [History Last Taken Unknown] cholecalciferol (vitamin D3) 10 mcg (400 unit) tablet (Vitamin D3) 400 unit PO DAILY 12/27/18 [History Last Taken Unknown] escitalopram oxalate 10 mg tablet 10 mg PO QHS DEPRESSION 12/27/18 [History Last Taken 01/05/19 2100] glucosamine-chondroitin 500 mg-400 mg capsule 1 ea PO BID 12/27/18 [History Last Taken Unknown] multivitamin (Multiple Vitamins tablet) 1 ea PO DAILY 12/27/18 [History Last Taken Unknown] tamsulosin 0.4 mg capsule 0.4 mg PO QHS URINATING 12/27/18 [History Last Taken 01/05/19 2100] acetaminophen 325 mg tablet (Tylenol) 325 mg PO Q4H PRN PRN Pain 01/13/19 [Rx Last Taken Unknown] ibuprofen 400 mg tablet 400 mg PO Q6H PRN PRN Mild Pain (1-3) 01/13/19 [Rx Last Taken Unknown] carbidopa 25 mg-levodopa 100 mg tablet tab 03/15/21 [History Last Taken Unknown] meclizine 25 mg tablet 25 mg PO TID PRN dizziness #14 tabs 03/15/21 [Rx Last Taken Unknown] ciprofloxacin HCl 500 mg tablet 500 mg PO BID #14 TABLETS 12/03/22 [Rx Last Taken Unknown] Allergy/AdvReac Type Severity Reaction Status Date / Time No Known Allergies Allergy Verified 12/03/22 09:23 Family History no significant family his Social History Smoking Status: Former smoker ROS ROS ED Constitutional Constitutional ED: Denies chills, fever(s) or sweats Eyes Eyes: Denies blurry vision or change in vision ENT ENT ED: Denies ear pain or sore throat Cardiovascular Cardiovascular: Denies chest pain, palpitations or racing heartbeat Respiratory/Chest Respiratory/Chest: Denies cough, dyspnea or sputum Gastrointestinal Gastrointestinal: Denies abdominal pain, constipation, diarrhea, nausea or vomiting Genitourinary Genitourinary ED: Reports dysuria, hematuria and urinary frequency Musculoskeletal Musculoskeletal: Denies arthralgias, myalgias or neck pain Integumentary Denies abscess, Abrasions or rash Neurologic Neurologic: Denies headache(s), paresthesias or weakness Psychiatric Psychiatric: Denies anxiety, depression, suicidal ideation or suicidal thoughts Endocrine Endocrinology: Denies polydipsia or polyuria EXAM Physical Exam Const Vital Signs: 12/03/22 09:21 12/03/22 10:26 12/03/22 11:05 Temperature 97.4 F L 98.4 F 98.4 F Temperature Source Temporal Oral Oral Pulse Rate 87 63 68 Respiratory Rate 16 16 16 Blood Pressure 123/85 H 128/79 H 112/75 Blood Pressure Mean 97 95 87 Pulse Ox 100 93 94 Oxygen Delivery Method Room Air Room Air Room Air 12/03/22 11:10 Temperature 98.4 F Temperature Source Pulse Rate 65 Respiratory Rate 18 Blood Pressure 114/76 Blood Pressure Mean Pulse Ox 92 Oxygen Delivery Method Positive well nourished General Appearance ED: NAD HEENT Reports moist mucous membranes and dry mucous membranes Mouth ED: Yes dry mucous membranes Mouth: dry mucous membranes Eyes PERRL and EOMs intact bilaterally Neck no lymphadenopathy Cardio regular rate and regular rhythm GI non-tender and non-distended no CVA tenderness Back/Spine no CVA tenderness Neuro oriented x3 and CN's II-XII intact bilaterally Sensorium / Orientation: alert Psych mental status grossly normal Skin General Skin Exam: Negative for jaundice MDM MDM MDM Narrative Medical decision making narrative: 77-year-old male with hematuria. He states this is from using a urethral sound. He was told that if he develops hematuria he should return to the emergency room and not to the urgent care. He states that the Bactrim is improving his symptoms, although yesterday when trying go to the bathroom he had to squeeze his penis to get to the bathroom on time so he did urinate and when he did urinate he noted some blood in the urine. He does not have any systemic signs or symptoms. He does not have any abdominal pain. He is well-appearing with normal vital signs. We will obtain a urinalysis to assess for urinary tract infection. CBC and BMP to assess renal function, hemoglobin hematocrit, white blood cell count and differential. CBC shows normal white blood cell count 8.8. Hemoglobin chronic are stable. Platelets are normal. BMP shows normal electrolytes. Creatinine is increased to 1.33. Last comparison I have here is from March 2021. Patient was discussed with Dr. Whittaker. He did state his last creatinine was about 1.2. We will switch his antibiotics to Cipro 500 twice daily for a week. Urine culture was sent. He can follow-up with Dr. Whittaker for repeat kidney function testing in about a week. His primary care did prefer to have him have a urology referral as well. He was given follow-up with Dr. Preston. Patient knowledge understanding of all instructions. Discharged home in stable condition. Impression: 1. Bladder infection 2. Hematuria Lab Data Labs: Laboratory Results - last 24 hr 12/03/22 12/03/22 12/03/22 10:10 10:14 10:14 WBC 8.8 RBC 4.18 L Hgb 14.2 Hct 41.9 MCV 100.2 H MCH 34.0 H MCHC 33.9 RDW Std Deviation 45.0 H RDW Coeff of [place] 12.1 Plt Count 288 MPV 9.4 Immature Gran % (Auto) 0.500 Neut % (Auto) 77.5 H Lymph % (Auto) 13.5 L [place] % (Auto) 7.6 Eos % (Auto) 0.7 Baso % (Auto) 0.2 Absolute Neuts (auto) 6.9 Absolute Lymphs (auto) 1.19 Nucleated RBC % 0 Sodium 138 Potassium 3.7 Chloride 105 Carbon Dioxide 26.0 Anion Gap 7 BUN 16 Creatinine 1.33 H Estim Creat Clear Calc 50.33 Est GFR (MDRD) Af Amer 67 Est GFR (MDRD) Non-Af 55 L BUN/Creatinine Ratio 12.0 Glucose 113 H Calcium 9.5 Urine Color Yellow Urine Clarity Sl. Cloudy Urine pH 6.0 Ur Specific [place] 1.020 Urine Protein 100 H Urine Glucose (UA) Normal Urine Ketones 15 H Urine Occult Blood 250 H Urine Nitrite Negative Urine Bilirubin Negative Urine Urobilinogen 1 H Ur Leukocyte Esterase 500 H Urine RBC 25-50 SEEN Urine WBC 50-100 SEEN Ur Squamous Epith Cells 0 SEEN Urine Bacteria 1+ Urine Mucus 0 SEEN Discharge Plan Triage Chief Complaint: Complaint ED Provider: Ezekiel Bateman Dx/Rx/DC Orders Instructions: ED Bladder Infection, Male (Adult) Prescriptions: New ciprofloxacin HCl 500 mg tablet 500 mg PO BID Qty: 14 0RF No Action multivitamin [Multiple Vitamins] 1 EACH tablet 1 ea PO DAILY atorvastatin [Lipitor] 20 MG tablet 20 mg PO QHS ascorbic acid (vitamin C) 1,000 MG tablet extended release 1,000 mg PO DAILY tamsulosin 0.4 MG capsule 0.4 mg PO QHS calcium carbonate 500 MG tablet,chewable 500 mg PO DAILY cholecalciferol (vitamin D3) [Vitamin D3] 400 UNIT tablet 400 unit PO DAILY glucosamine-chondroitin 1 EACH capsule 1 ea PO BID escitalopram oxalate 10 MG tablet 10 mg PO QHS acetaminophen [Tylenol] 325 MG tablet 325 mg PO Q4H PRN PRN (Reason: Pain) 0RF ibuprofen 400 MG tablet 400 mg PO Q6H PRN PRN (Reason: Mild Pain (-12/19)) 0RF carbidopa-levodopa 25-100 mg tablet Label Comments: TAKE 1 & 1 2 (ONE & ONE HALF) TABLETS BY MOUTH THREE TIMES DAILY meclizine 25 mg tablet 25 mg PO TID PRN (Reason: dizziness) Qty: 14 0RF Primary Care Provider: Gerson Whittaker Referrals: Gerson Whittaker MD [Primary Care Provider] - Mohan,Yang Hair MD [Med Staff - Active Staff] - 3-5 Days Disposition Disposition: Home, Self Care
[2022-12-03 10:26] VITALS: BP 128/79; PULSE 63; RESP 16; TEMP 36.9; O2SAT 93; BMI 26.8
[2022-12-03 10:32] LABS: Mucous, Urine 0 SEEN /hpf (<or=2+); Squamous Epithelial Cells - UA 0 SEEN /hpf (0-5)
[2022-12-03 10:34] LABS: Absolute Lymphocyte Count 1.19 X10^3/uL (0.83-4.51); Absolute Neutrophil Count 6.9 X10^3/uL (2.0-7.7); Basophil# 0.02 X10^3/uL; Basophil% 0.2 % (0-1); Eosinophil# 0.06 X10^3/uL; Eosinophils% 0.7 % (0-5); Hematocrit 41.9 % (40-54); Hemoglobin 14.2 g/dL (13.0-16.5); Lymphocyte # 1.19 X10^3/ul (0.83-4.51); Lymphocyte % 13.5 % (19-41); Mean Corp Hgb Conc 33.9 g/dL (32-36); Mean Corpuscular Volume 100.2 fL (80-94); Mean Platelet Vol. 9.4 fl (6.2-12.0); Monocyte# 0.67 X10^3/uL; Monocyte% 7.6 % (0-10); NRBC Flagged by Analyzer 0 % (0-5); Neutrophil # 6.86 X10^3/uL (2.7-7.7); Neutrophil % 77.5 % (47-70); Platelet Count 288 K/mm3 (150-450); RBC Distribution Width CV 12.1 % (11.6-14.6); Red Blood Count 4.18 M/mm3 (4.6-6.2); White Blood Count 8.8 K/mm3 (4.4-11.0)
[2022-12-03 10:36] LABS: Color, Urine Yellow (Yellow); Glucose, Dipstick Normal (Normal); Ketone-Dipstick 15 mg/dl (Negative); Leukocyte Esterase-Dipstick 500 /ul (Negative); Nitrite-Dipstick Negative (Negative); Occult Blood-Urine 250 /ul (Negative); Protein-Dipstick 100 mg/dl (Negative); Urine Bilirubin Dipstick Negative (Negative); Urine Clarity Sl. Cloudy (Clear); Urine Urobilinogen 1 mg/dl (Normal)
[2022-12-03 10:52] LABS: Red Blood Cells-Urine 25-50 SEEN /hpf (0-5); White Blood Cells 50-100 SEEN /hpf (0-5)
[2022-12-03 10:53] LABS: Bacteria 1+ /hpf (None Seen)
[2022-12-03 11:05] VITALS: BP 112/75; PULSE 68; RESP 16; TEMP 36.9; O2SAT 94
[2022-12-03 11:06] LABS: BUN 16 mg/dL (7-18); Creatinine, Serum 1.33 mg/dL (0.70-1.30); Glucose 113 mg/dL (74-106)
[2022-12-03 11:07] LABS: Anion Gap 7 (5-15); Calcium,Total 9.5 mg/dL (8.5-10.1); Chloride 105 mmol/L (98-107); EST Glomerular Filtration Rate 55 mL/min (>60); Est Glom Filt Rate - Afr Amer 67 mL/min (>60); Estimated Creatinine Clearance 50.33 ml/min; Potassium 3.7 mmol/L (3.5-5.1); Sodium Level 138 mmol/L (136-145)
[2022-12-03] MEDS: Ciprofloxacin 500 MG Tablet PO (11:08)
[2022-12-03 11:10] VITALS: BP 114/76; PULSE 65; RESP 18; TEMP 36.9; O2SAT 92
== END 2022-12-03 11:26 | disposition home or self-care (01) ==
PROVIDERS: Emergency Provider Student in an Organized Health Care Education/Training Program; PCP Family Medicine; Visit Provider Student in an Organized Health Care Education/Training Program
DX: N30.91 Cystitis, unspecified with hematuria (principal); Z87.891 Personal history of nicotine dependence; R30.0 Dysuria
CPT/HCPCS: 80048; 81001; 85025; 87086; 99284; A4216

== ENCOUNTER 2023-11-20 13:00 | Outpatient (RCR) | payer MEDICARE, OTHER, SELFPAY ==
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
--- NOTE | 2023-11-20 13:38 | HP.PTDCSUM ---
Discharge Summary D/C summary: It has been my pleasure to treat CLAUDIA VILLARREAL referred by Dr. Gerson Whittaker MD, with the diagnosis of L UPPER BACK PAIN for a total of 10 visit(s). Discharge Date: Please see the following information for a summary of their discharge status. Subjective Subjective: I HAVE A LITTLE BIT OF PAIN NOW BUT IT'S NOT A BIG DEAL . PATIENT REPORTS HE IS BACK TO DOING HIS NORMAL ACTIVITIES BUT MODIFIES NEEDED TO AVOID PAIN. PATIENT REPORTS HE HAD A FOLLOW UP WITH DR. WHITTAKER AND IT WENT FINE AND NO FURTHER TESTING ORDERED. PATIENT REPORTS HE HAS LEARNED MORE WITH PT THAN HE EXPECTED AND HE IS READY TO CONTINUE ON HIS OWN NOW. Pain L UPPER BACK: Pain Intensity (Out of 10): 1 L RIB CAGE: Pain Intensity (Out of 10): 1 Overall Improvement % Improvement: 95 Objective Objective/Function: PATIENT WAS SEEN TODAY FOR RE-ASSESSMENT OF PROGRESS TOWARD THE SET PT GOALS AND THE NEED FOR FURTHER PHYSICAL THERAPY VS READINESS FOR DISCHARGE. PATIENT HAS DONE REALLY WELL WITH PT AND IS APPROPRIATE FOR DISCHARGE. UPON EXAM TODAY: ROM deficit: 146 DEG ELEVATION R AND 167 DEG ELEVATION L SHLD WITHOUT C/O INCREASED PAIN. Motor deficit: ANCA UE'S GROSSLY 5/5 WITH MMT'ING EXCEPT SHLD'S 4- TO 4/5 AND PATIENT REPORTS VERY MILD INCREASED BACK PAIN WITH SHLD FLEX AND ABD TESTING. THORACIC MVMT LOSS: R ROT: MIN L ROT - MIN PATIENT C/O VERY MILD INCREASED THORACIC PAIN WITH R ROT > LEFT - NW A RESULT. Postural strength: FAIR Palpation: VERY MILD TENDERNESS WITH PALPATION OF T5 TO T10 REGIONS AND ON EACH SIDE OF SPINE. Goals Goal 1:: PATIENT WILL REPORT AT LEAST 50% DECREASED UPPER BACK AND L RIB PAIN WITH ADL'S Goal 2:: PATIENT WILL DEMONSTRATE INCREASED PAINFREE UE AND THORACIC ROM TO EASE ADL'S. Goal 3:: PATIENT WILL HAVE IMPROVED ANCA UE STRENGTH TO AT LEAST 4/5 WITHOUT C/O PAIN WITH TESTING Goal 4:: PATIENT WILL BE ABLE TO RESUME INDEP EX IN [employer] AND [employer] WITHOUT PAIN WITH MODIFICATIONS NEEDED. Plan Plan: D/C. PATIENT AGREEABLE. D/C Information d/c sentence: If there are questions or concerns regarding this patient's physical therapy, please feel free to call me at [phone]. Thank you for the referral of this patient. Sincerely, Aury Lam, PT, Cert MDT Balance/Gait/Functional tests Balance/Special Test Scores Oswestry Low Back Score: 2 Oswestry Neck Score: 10 Improvement % Improvement: 95
== END 2023-11-20 19:00 | disposition home or self-care (01) ==
LOC: PT 13:00
PROVIDERS: PCP Family Medicine; Referring Provider Family Medicine; Visit Provider Family Medicine
DX: M54.9 Dorsalgia, unspecified (principal)
CPT/HCPCS: 97110; 97162; 97530

== ENCOUNTER 2024-08-02 17:15 | Emergency (ER) | payer MEDICARE, OTHER, SELFPAY ==
[2024-08-02] VITALS (8 sets, daily range): BP systolic 119–166; BP diastolic 73–96; PULSE 72–91; RESP 16–26; TEMP 36.9–37.1; O2SAT 95–100; BMI 25.4
--- NOTE | 2024-08-02 17:51 | EKG12_ITS ---
Test Reason : PAIN Blood Pressure : / mmHG Vent. Rate : 077 BPM Atrial Rate : 077 BPM P-R Int : 178 ms QRS Dur : 102 ms QT Int : 396 ms P-R-T Axes : 031 -64 020 degrees QTc Int : 448 ms Normal sinus rhythm Pulmonary disease pattern Left anterior fascicular block Abnormal ECG Confirmed by KELL HAJI, MILANA ([id number]), assistant film editor JERRY ADAMES ([id number]) on 08/04/2024 9:10:51 AM Referred By: CAM Confirmed By:MILANA CASTORENA MD
--- NOTE | 2024-08-02 17:55 | RAD_ITS ---
EXAM: XR RIGHT HUMERUS, 2 OR MORE VIEWS CLINICAL INDICATION: DEFORMITY TECHNIQUE: Frontal and lateral views of the right humerus. COMPARISON: No relevant prior studies available. FINDINGS: BONES/JOINTS: Hypertrophic changes at the inferior glenoid. Intact humerus. A true lateral view of the elbow is not provided. No acute fracture. No subluxation. Normal alignment. Preservation of the joint space. No sclerotic or destructive changes observed. SOFT TISSUES: Slight gas projecting at the deep right chest wall overlying the ribs. No radiopaque foreign body. RAD/Humerus min 2 Views IMPRESSION: No acute abnormality of the humerus. Electronically Signed: Nilsa Trinh MD at 18:31 EDT ,
--- NOTE | 2024-08-02 17:55 | RAD_ITS ---
We are attempting to reach an attending provider to discuss findings. An addendum with communication details will be sent when the communication is complete. EXAM: XR RIGHT SHOULDER COMPLETE, 2 OR MORE VIEWS CLINICAL INDICATION: DEFORMITY TECHNIQUE: Two or more views of the right shoulder. COMPARISON: None. FINDINGS: BONES/JOINTS: Advanced hypertrophic changes at the inferior margin of the glenoid. No proximal right humerus fracture or subluxation. Grossly intact AC joint. At least 2 compression deformities of mid thoracic bodies are suspected chronicity. Multiple rib fractures including seventh and eighth lateral ribs and sixth and seventh posterior ribs. SOFT TISSUES: Slight gas in the right chest wall. No radiopaque foreign body. LUNGS AND PLEURAL SPACES: There is mild right apical pneumothorax, less likely blebs or bullae. RAD/Shoulder min 2 Views IMPRESSION: 1. Apparent right pneumothorax, rib fractures and chest wall gas. 2. Correlate with recent trauma. Consider chest radiograph. Electronically Signed: Nilsa Trinh MD at 18:30 EDT ,
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
--- NOTE | 2024-08-02 19:18 | CT_ITS ---
EXAM: CT CERVICAL SPINE WITHOUT INTRAVENOUS CONTRAST CLINICAL INDICATION: Trauma TECHNIQUE: Helically acquired images were obtained of the cervical spine without intravenous contrast. 2D reformatted images were reviewed. This CT exam was performed using one or more of the following dose reduction techniques: automated exposure control, adjustment of the mA and/or kV according to patient size, and/or use of iterative reconstruction technique. RADIATION DOSE: CTDIvol = 25.90 mGy, DLP = 567.55 mGy-cm COMPARISON: No relevant prior studies available. FINDINGS: LIMITATIONS: Patient rotation. VERTEBRAE: Straightening of the usual lordosis. Mild anterior spondylosis at C4-C5. There is mild anterior decreased height and slight lucency at the anterior-superior body of T2, without visible acute fracture line or retropulsion. DISCS/SPINAL CANAL/NEURAL FORAMINA: Marked disc space narrowing at C4-5 and C5-6. Excellent mild facet joint hypertrophic changes. SOFT TISSUES: Unremarkable. No prevertebral soft tissue swelling. VASCULATURE: Mild cervical carotid calcifications. LYMPH NODES: Unremarkable. No cervical adenopathy. LUNG APICES: Unremarkable as visualized. Clear. PLEURAL SPACE: Right apical pneumothorax is included, mild. CT/Spine Cervical without Contras IMPRESSION: 1. Mild right pneumothorax. 2. Degenerative cervical spine changes. No convincing acute fracture or subluxation. No jose guadalupe high-grade spinal stenosis. 3. Mild anterior compression fracture deformity of upper anterior body of T2, uncertain age. No retropulsion. Electronically Signed: Nilsa Trinh MD at 21:08 EDT ,
--- NOTE | 2024-08-02 19:18 | CT_ITS ---
EXAM: CT CHEST WITHOUT INTRAVENOUS CONTRAST CLINICAL INDICATION: Trauma TECHNIQUE: Helically acquired images were obtained of the chest without intravenous contrast. This CT exam was performed using one or more of the following dose reduction techniques: automated exposure control, adjustment of the mA and/or kV according to patient size, and/or use of iterative reconstruction technique. RADIATION DOSE: CTDIvol = 18.89 mGy, DLP = 795.04 mGy-cm COMPARISON: No relevant prior studies available. FINDINGS: LUNGS AND PLEURAL SPACES: Right pneumothorax, maximum AP diameter 2.9 cm anterior to the right lung base. Mild layer of right pleural effusion or hemothorax, likely hemothorax, mildly dense, roughly 1.8 cm maximum thickness. Mild bands of atelectasis and vascular crowding in the lung bases. No mass. HEART: At least moderate coronary artery calcifications or stents. Heart size is normal. No pericardial effusion. MEDIASTINUM: Unremarkable. No mediastinal or hilar adenopathy. Esophagus is unremarkable. No hiatal hernia. THYROID: Unremarkable. No thyroid lesions. BONES/JOINTS: Fractures of the right fifth, sixth anterolateral ribs, subtle fracture of right seventh lateral rib, and mildly displaced fractures of right sixth, seventh, eighth posterior ribs. Chronic-appearing compression fracture deformity of T6, marked, with a visible fracture line in the anterior body, possibly more recent superimposed fracture. Mild decreased height of T7 and T8. Mild decreased height of T2 slight curvilinear lucency in the upper body, likely subtle acute or subacute fracture. No retropulsion. No spinal stenosis. No suspicious lytic or blastic abnormality. VASCULATURE: See above. LIVER: The upper abdomen the unenhanced liver, gallbladder, partially included pancreas, adrenals, upper poles of the kidneys, and spleen are without obvious acute abnormality. CT/Chest without Contrast IMPRESSION: 1. Fractures of right fifth through eighth ribs, with 2 fractures in each of the sixth and seventh ribs. 2. Right hemopneumothorax, pneumothorax estimated to be 15% of the right hemithorax volume. Maximum pneumothorax AP diameter 2.9 cm anterior to the right lung base. 3. Chronic marked T6 compression fracture deformity with sclerosis but also at least a residual recurrent lucent fracture line. Mild decreased height at other levels. No retropulsion or spinal stenosis. 4. No acute upper abdominal abnormality visible on unenhanced exam. Electronically Signed: Nilsa Trinh MD at 21:33 EDT ,
--- OUTSIDE RECORDS SUMMARY | 2024-08-02 19:23 | XMS RPT_ITS | CCD ---
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 the right breast. PATIENT CONSENT: A time out was performed immediately prior to procedure start with the radiology team, correctly identifying the patient name, date of , procedure, anatomy (including marking of site and side), patient position, relevant diagnostic and radiology test results, safety precautions, and procedure-specific equipment needs. The procedure was explained to the patient including the risks, benefits and alternatives. Medications and allergies were also reviewed. The risks, including but not limited to infection and bleeding, were reviewed by the performing physician and the patient agreed to undergo the procedure. The radiologist and technologist were present throughout the entire procedure. Correlation is made to exams dated: 06/01/2024 (ultrasound) and 07/20/2024 (ultrasound). Site 1: Audible Time Out Time: 8:07 Procedure Start Time: 8:13 Procedure Stop Time: 8:19 An ultrasound guided biopsy using real-time ultrasound was performed for the concerning lymph node located in the right breast in the axilla. This was described on the previous ultrasound report. The skin was prepped in the usual manner. Local anesthetic was administered to the access site. A skin geovanni was made in the breast. The abnormality was approached from the lateral aspect. A <> gauge biopsy needle was placed adjacent to the abnormality under ultrasound guidance. Once the needle was documented to be in the correct location, <> passes were made using a BARD Marquee biopsy device. A Q-shaped clip was then placed under sonographic guidance. A skin closure strip and a sterile dressing were applied to the access site. During the procedure, there were no biopsy complications observed. The specimens were sent to the laboratory for pathological analysis. Post procedure imaging demonstrates the clip in appropriate position at the biopsy target. IMPRESSION: ULTRASOUND GUIDED BIOPSY Site 1: Ultrasound guided biopsy of the lymph node in the right axilla with placement of a clip was successful. Waiting for pathology results. A final report will be issued when these become available. Interpreting Radiologist: Bret Yousif M.D. Electronically signed on: 07/26/2024 Medical Economics Consultant: HERBERTH Boland Date/Time: Jul 26 2024 8:34A Dictated by : BRET YOUSIF MD This examination was interpreted and the report reviewed and electronically signed by: BRET YOUSIF MD on Jul 26 2024 8:47AM EST This document has been addended by: BRET YOUSIF MD on Jul 28 2024 4:01PM EST [id number] [facility] US BIOPSY AXILLA RTon [facility] US BIOPSY AXILLA RT * * *Final Report* * * * * * SEE BOTTOM OF REPORT FOR ADDENDED TEXT * * * DATE OF EXAM: Jul 26 2024 8:35AM AAW 0602 - [facility] US BIOPSY AXILLA RT / PROCEDURE REASON: Abnormal imaging * * * * Physician Interpretation * * * * [address] [place] [address] - - - - - - - - - - ADDENDED REPORT - - - - - - - - - - 07/28/2024 at 16:01:53 Addendum: The final pathology results of the patient's ultrasound guided lymph node biopsy demonstrate the following; Site 1 - (right breast) Fragments of Lymph Node negative for malignancy. This is concordant with the imaging findings. RECOMMENDATION Site 1: Patient is under the care of Dr. Romano for the above. Interpreting Radiologist: Bret Yousif M.D. Electronically signed on: 07/28/2024 - - - - - - - - - - ORIGINAL REPORT - - - - - - - - - - HISTORY: 79 year old patient presents for ultrasound guided core biopsy of lymph node in the axilla in the right breast. PATIENT CONSENT: A time out was performed immediately prior to procedure start with the radiology team, correctly identifying the patient name, date of , procedure, anatomy (including marking of site and side), patient position, relevant diagnostic and radiology test results, safety precautions, and procedure-specific equipment needs. The procedure was explained to the patient including the risks, benefits and alternatives. Medications and allergies were also reviewed. The risks, including but not limited to infection and bleeding, were reviewed by the performing physician and the patient agreed to undergo the procedure. The radiologist and technologist were present throughout the entire procedure. Correlation is made to exams dated: 06/01/2024 (ultrasound) and 07/20/2024 (ultrasound). Site 1: Audible Time Out Time: 8:07 Procedure Start Time: 8:13 Procedure Stop Time: 8:19 An ultrasound guided biopsy using real-time ultrasound was performed for the concerning lymph node located in the right breast in the axilla. This was described on the previous ultrasound report. The skin was prepped in the usual manner. Local anesthetic was administered to the access site. A skin geovanni was made in the breast. The abnormality was approached from the lateral aspect. A <> gauge biopsy needle was placed adjacent to the abnormality under ultrasound guidance. Once the needle was documented to be in the correct location, <> passes were made using a [employer] biopsy device. A Q-shaped clip was then placed under sonographic guidance. A skin closure strip and a sterile dressing were applied to the access site. During the procedure, there were no biopsy complications observed. The specimens were sent to the laboratory for pathological analysis. Post procedure imaging demonstrates the clip in appropriate position at the biopsy target. IMPRESSION: ULTRASOUND GUIDED BIOPSY Site 1: Ultrasound guided biopsy of the lymph node in the right axilla with placement of a clip was successful. Waiting for pathology results. A final report will be issued when these become available. Interpreting Radiologist: Bret Yousif M.D. Electronically signed on: 07/26/2024 Medical Economics Consultant: HERBERTH Transcribe Date/Time: Jul 26 2024 7:12A Dictated by : BRET YOUSIF MD This examination was interpreted and the report reviewed and electronically signed by: BRET YOUSIF MD on Jul 26 2024 8:47AM EST This document has been addended by: BRET YOUSIF MD on Jul 28 2024 4:01PM EST [id number] [facility] US CLIP PLCMT RTon 07-26 [facility] US CLIP PLCMT RT * * *Final Report* * * * * * SEE BOTTOM OF REPORT FOR ADDENDED TEXT * * * DATE OF EXAM: Jul 26 2024 8:38AM AAW 0604 - [facility] CLIP [facility] RT / PROCEDURE REASON: Abnormal imaging * * * * Physician Interpretation * * * * [facility] [address] [facility] [place] [address] - - - - - - - - - - ADDENDED REPORT - - - - - - - - - - 07/28/2024 at 16:01:53 Addendum: The final pathology results of the patient's ultrasound guided lymph node biopsy demonstrate the following; Site 1 - (right breast) Fragments of Lymph Node negative for malignancy. This is concordant with the imaging findings. RECOMMENDATION Site 1: Patient is under the care of Dr. Romano for the above. Interpreting Radiologist: Bret Yousif M.D. Electronically signed on: 07/28/2024 - - - - - - - - - - ORIGINAL REPORT - - - - - - - - - - HISTORY: 79 year old patient presents for ultrasound guided core biopsy of lymph node in the axilla in the right breast. PATIENT CONSENT: A time out was performed immediately prior to procedure start with the radiology team, correctly identifying the patient name, date of , procedure, anatomy (including marking of site and side), patient position, relevant diagnostic and radiology test results, safety precautions, and procedure-specific equipment needs. The procedure was explained to the patient including the risks, benefits and alternatives. Medications and allergies were also reviewed. The risks, including but not limited to infection and bleeding, were reviewed by the performing physician and the patient agreed to undergo the procedure. The radiologist and technologist were present throughout the entire procedure. Correlation is made to exams dated: 06/01/2024 (ultrasound) and 07/20/2024 (ultrasound). Site 1: Audible Time Out Time: 8:07 Procedure Start Time: 8:13 Procedure Stop Time: 8:19 An ultrasound guided biopsy using real-time ultrasound was performed for the concerning lymph node located in the right breast in the axilla. This was described on the previous ultrasound report. The skin was prepped in the usual manner. Local anesthetic was administered to the access site. A skin geovanni was made in the breast. The abnormality was approached from the lateral aspect. A <> gauge biopsy needle was placed adjacent to the abnormality under ultrasound guidance. Once the needle was documented to be in the correct location, <> passes were made using a BARD Marquee biopsy device. A Q-shaped clip was then placed under sonographic guidance. A skin closure strip and a sterile dressing were applied to the access site. During the procedure, there were no biopsy complications observed. The specimens were sent to the laboratory for pathological analysis. Post procedure imaging demonstrates the clip in appropriate position at the biopsy target. IMPRESSION: ULTRASOUND GUIDED BIOPSY Site 1: Ultrasound guided biopsy of the lymph node in the right axilla with placement of a clip was successful. Waiting for pathology results. A final report will be issued when these become available. Interpreting Radiologist: Bret Yousif M.D. Electronically signed on: 07/26/2024 Medical Economics Consultant: HERBERTH Transcribe Date/Time: Jul 26 2024 8:37A Dictated by : BRET YOUSIF MD This examination was interpreted and the report reviewed and electronically signed by: BRET YOUSIF MD on Jul 26 2024 8:47AM EST This document has been addended by: BRET YOUSIF MD on Jul 28 2024 4:01PM EST [id number] [facility] MG Breast - right Diagnostic for implanton 07-26-2024 IMPRESSION: ULTRASOU ND GUIDED BIOPSY Site 1: Ultrasound guided biopsy of the lymph node in the right axilla with placement of a clip was successful. Waiting for pathology results. A final report will be issued when these become available. Interpreting Radiologist: Bret Yousif M.D. Electronically signed on: 07/26/2024 Medical Economics Consultant: HERBERTH Transcriestella Date/Time: Jul 26 2024 8:34A Dictated by : BRET YOUSIF MD This examination was interpreted and the report reviewed and electronically signed by: BRET YOUSIF MD on Jul 26 2024 8:47AM EST [facility] * * *Final Report* * * DATE OF EXAM: Jul 26 2024 8:42AM AA 0626 - [facility] RT / PROCEDURE REASON: Abnormal imaging * * * * Physician Interpretation * * * * [facility] [address] [place] [address] HISTORY: 79 year old patient presents for ultrasound guided core biopsy of lymph node in the axilla in the right breast. PATIENT CONSENT: A time out was performed immediately prior to procedure start with the radiology team, correctly identifying the patient name, date of , procedure, anatomy (including marking of site and side), patient position, relevant diagnostic and radiology test results, safety precautions, and procedure-specific equipment needs. The procedure was explained to the patient including the risks, benefits and alternatives. Medications and allergies were also reviewed. The risks, including but not limited to infection and bleeding, were reviewed by the performing physician and the patient agreed to undergo the procedure. The radiologist and technologist were present throughout the entire procedure. Correlation is made to exams dated: 06/01/2024 (ultrasound) and 07/20/2024 (ultrasound). Site 1: Audible Time Out Time: 8:07 Procedure Start Time: 8:13 Procedure Stop Time: 8:19 An ultrasound guided biopsy using real-time ultrasound was performed for the concerning lymph node located in the right breast in the axilla. This was described on the previous ultrasound report. The skin was prepped in the usual manner. Local anesthetic was administered to the access site. A skin geovanni was made in the breast. The abnormality was approached from the lateral aspect. A <> gauge biopsy needle was placed adjacent to the abnormality under ultrasound guidance. Once the needle was documented to be in the correct location, <> passes were made using a BARD Marquee biopsy device. A Q-shaped clip was then placed under sonographic guidance. A skin closure strip and a sterile dressing were applied to the access site. During the procedure, there were no biopsy complications observed. The specimens were sent to the laboratory for pathological analysis. Post procedure imaging demonstrates the clip in appropriate position at the biopsy target. [facility] Provider, [facility] - 07/26/2024 * * *Final Report* * * DATE OF EXAM: Jul 26 2024 8:42AM FIDENCIO 0626 - [facility] RT / PROCEDURE REASON: Abnormal imaging * * * * Physician Interpretation * * * * [facility] [address] [facility] [place] [address] HISTORY: 79 year old patient presents for ultrasound guided core biopsy of lymph node in the axilla in the right breast. PATIENT CONSENT: A time out was performed immediately prior to procedure start with the radiology team, correctly identifying the patient name, date of , procedure, anatomy (including marking of site and side), patient position, relevant diagnostic and radiology test results, safety precautions, and procedure-specific equipment needs. The procedure was explained to the patient including the risks, benefits and alternatives. Medications and allergies were also reviewed. The risks, including but not limited to infection and bleeding, were reviewed by the performing physician and the patient agreed to undergo the procedure. The radiologist and technologist were present throughout the entire procedure. Correlation is made to exams dated: 06/01/2024 (ultrasound) and 07/20/2024 (ultrasound). Site 1: Audible Time Out Time: 8:07 Procedure Start Time: 8:13 Procedure Stop Time: 8:19 An ultrasound guided biopsy using real-time ultrasound was performed for the concerning lymph node located in the right breast in the axilla. This was described on the previous ultrasound report. The skin was prepped in the usual manner. Local anesthetic was administered to the access site. A skin geovanni was made in the breast. The abnormality was approached from the lateral aspect. A <> gauge biopsy needle was placed adjacent to the abnormality under ultrasound guidance. Once the needle was documented to be in the correct location, <> passes were made using a BARD Marquee biopsy device. A Q-shaped clip was then placed under sonographic guidance. A skin closure strip and a sterile dressing were applied to the access site. During the procedure, there were no biopsy complications observed. The specimens were sent to the laboratory for pathological analysis. Post procedure imaging demonstrates the clip in appropriate position at the biopsy target. IMPRESSION IMPRESSION: ULTRASOUND GUIDED BIOPSY Site 1: Ultrasound guided biopsy of the lymph node in the right axilla with placement of a clip was successful. Waiting for pathology results. A final report will be issued when these become available. Interpreting Radiologist: Bret Yousif M.D. Electronically signed on: 07/26/2024 Medical Economics Consultant: HERBERTH Transcribe Date/Time: Jul 26 2024 8:34A Dictated by : BRET YOUSIF MD This examination was interpreted and the report reviewed and electronically signed by: BRET YOUSIF MD on Jul 26 2024 8:47AM EST [facility] Radiology Study observation (narrative) [facility] No Panel InformationOrdered By: Ccf Provider on 07-26-2024 [facility] SURGICAL PATHOLOGYon 024 CASE REPORT [facility] Comment on above: Order Comment: Speci men Type: TISSUE SPECIMEN Ordering Facility: [facility] Address: [address] [place] [address] Result Comment: Surg ical Pathology Report Case: [id number] Authorizing Provider: Bret Yousif MD Collected: 07/26/2024 08:19 AM Ordering Location: [facility] Received: 07/26/2024 02:05 PM [facility] Pathologist: Janey Cobb MD Specimen: Lymph Node, Right, Axillary, right axillary node; US biopsy Performed By: #### S #### [facility] CLIA [id number] [address] [place] CLINICAL HISTORY right axillary LAD, hx right breast ca [facility] Comment on above: Order Comment: Speci men Type: TISSUE SPECIMEN Ordering Facility: [facility] Address: [address] [place] [address] Performed By: #### S #### [facility] CLIA [id number] [address] [place] DIAGNOSIS COMMENT [facility] Comment on above: Order Comment: Missy robins Type: TISSUE SPECIMEN Ordering Facility: [facility] Address: [address] [place] [address] Result Comment: Immu nohistochemical stain for pankeratin is negative for a neoplastic infiltrate. Laboratory Developed Test (LDT) Disclaimer: Performance characteristics of immunohistochemical, immunofluorescent and chromogenic in-situ hybridization tests have been determined by the performing laboratory within [facility]???s Rashawn Richmond Pathology and Laboratory Medicine Department ([facility], [facility], [facility], [facility], [facility], [facility], or [facility]) in a manner consistent with CLIA requirements. One or more of these tests have not been cleared or approved by the FDA. [facility] is regulated under CLIA as qualified to perform high-complexity testing. These tests are used for clinical purposes. They should not be regarded as investigational or for research. Positive and negative controls stain appropriately. Performed By: #### S #### [facility] CLIA [id number] [address] [place] [address] FINAL DIAGNOSIS [facility] Comment on above: Order Comment: Speci men Type: TISSUE SPECIMEN Ordering Facility: [facility] Address: [address] [place] [address] Result Comment: A. L ymph node, right axillary, biopsy: - Fragments of lymph node negative for metastatic carcinoma. Performed By: #### S #### [facility] CLIA [id number] [address] [place] [address] [address]FORMING LAB Normal [facility] Comment on above: Order Comment: Speckristian robins Type: TISSUE SPECIMEN Ordering Facility: [facility] Address: [address] [place] [address] Result Comment: Diag nostic interpretation performed at [facility], [address] [place] [address] CLIA# [id number] Underwear Welter: Butch Chowdhury M.D. Performed By: #### S #### [facility] CLIA [id number] [address] [place] [address] GROSS DESCRIPTION [facility] Comment on above: Order Comment: Missy robins Type: TISSUE SPECIMEN Ordering Facility: [facility] Address: [address] [place] [address] Result Comment: A. L ymph Node, Right, Axillary Received in formalin labeled right axillary lymph node biopsy are multiple yellow segments of tissue aggregating to 1.5 x 1.0 x 0.1 cm. The specimens are totally submitted in formalin in 1 cassette. Time removed from patient is 8:19 AM on 07/26/2024. Time placed in formalin is 8:19 AM on 07/26/2024. Gross examination performed at [facility], [address] [place] [address] KVB July 26, 2024 2:39 PM Performed By: #### S #### [facility] CLIA [id number] [address] [place] [address] [place] Guidance for localization of Breast - righton 07-26-2024 IMPRESSION: ULTRASOU ND GUIDED BIOPSY Site 1: Ultrasound guided biopsy of the lymph node in the right axilla with placement of a clip was successful. Waiting for pathology results. A final report will be issued when these become available. Interpreting Radiologist: Bret Yousif M.D. Electronically signed on: 07/26/2024 Medical Economics Consultant: HERBERTH Transcribe Date/Time: Jul 26 2024 8:37A Dictated by : BRET YOUSIF MD This examination was interpreted and the report reviewed and electronically signed by: BRET YOUSIF MD on Jul 26 2024 8:47AM EST [facility] * * *Final Report* * * DATE OF EXAM: Jul 26 2024 8:38AM AAW 0604 - [facility] CLIP [facility] RT / PROCEDURE REASON: Abnormal imaging * * * * Physician Interpretation * * * * [facility] [address] [facility] [place] [address] HISTORY: 79 year old patient presents for ultrasound guided core biopsy of lymph node in the axilla in the right breast. PATIENT CONSENT: A time out was performed immediately prior to procedure start with the radiology team, correctly identifying the patient name, date of , procedure, anatomy (including marking of site and side), patient position, relevant diagnostic and radiology test results, safety precautions, and procedure-specific equipment needs. The procedure was explained to the patient including the risks, benefits and alternatives. Medications and allergies were also reviewed. The risks, including but not limited to infection and bleeding, were reviewed by the performing physician and the patient agreed to undergo the procedure. The radiologist and technologist were present throughout the entire procedure. Correlation is made to exams dated: 06/01/2024 (ultrasound) and 07/20/2024 (ultrasound). Site 1: Audible Time Out Time: 8:07 Procedure Start Time: 8:13 Procedure Stop Time: 8:19 An ultrasound guided biopsy using real-time ultrasound was performed for the concerning lymph node located in the right breast in the axilla. This was described on the previous ultrasound report. The skin was prepped in the usual manner. Local anesthetic was administered to the access site. A skin geovanni was made in the breast. The abnormality was approached from the lateral aspect. A <> gauge biopsy needle was placed adjacent to the abnormality under ultrasound guidance. Once the needle was documented to be in the correct location, <> passes were made using a [employer] biopsy device. A Q-shaped clip was then placed under sonographic guidance. A skin closure strip and a sterile dressing were applied to the access site. During the procedure, there were no biopsy complications observed. The specimens were sent to the laboratory for pathological analysis. Post procedure imaging demonstrates the clip in appropriate position at the biopsy target. [facility], [facility] * * *Final Report* * * DATE OF EXAM: Jul 26 2024 8:38AM AAW 0604 - [facility] CLIP [facility] RT / PROCEDURE REASON: Abnormal imaging * * * * Physician Interpretation * * * * [facility] [address] [facility] [place] [id number] HISTORY: 79 year old patient presents for ultrasound guided core biopsy of lymph node in the axilla in the right breast. PATIENT CONSENT: A time out was performed immediately prior to procedure start with the radiology team, correctly identifying the patient name, date of , procedure, anatomy (including marking of site and side), patient position, relevant diagnostic and radiology test results, safety precautions, and procedure-specific equipment needs. The procedure was explained to the patient including the risks, benefits and alternatives. Medications and allergies were also reviewed. The risks, including but not limited to infection and bleeding, were reviewed by the performing physician and the patient agreed to undergo the procedure. The radiologist and technologist were present throughout the entire procedure. Correlation is made to exams dated: 06/01/2024 (ultrasound) and 07/20/2024 (ultrasound). Site 1: Audible Time Out Time: 8:07 Procedure Start Time: 8:13 Procedure Stop Time: 8:19 An ultrasound guided biopsy using real-time ultrasound was performed for the concerning lymph node located in the right breast in the axilla. This was described on the previous ultrasound report. The skin was prepped in the usual manner. Local anesthetic was administered to the access site. A skin geovanni was made in the breast. The abnormality was approached from the lateral aspect. A <> gauge biopsy needle was placed adjacent to the abnormality under ultrasound guidance. Once the needle was documented to be in the correct location, <> passes were made using a Net Element Marquee biopsy device. A Q-shaped clip was then placed under sonographic guidance. A skin closure strip and a sterile dressing were applied to the access site. During the procedure, there were no biopsy complications observed. The specimens were sent to the laboratory for pathological analysis. Post procedure imaging demonstrates the clip in appropriate position at the biopsy target. IMPRESSION IMPRESSION: ULTRASOUND GUIDED BIOPSY Site 1: Ultrasound guided biopsy of the lymph node in the right axilla with placement of a clip was successful. Waiting for pathology results. A final report will be issued when these become available. Interpreting Radiologist: Bret Yousif M.D. Electronically signed on: 07/26/2024 Medical Economics Consultant: HERBERTH Transcribe Date/Time: Jul 26 2024 8:37A Dictated by : BRET YOUSIF MD This examination was interpreted and the report reviewed and electronically signed by: BRET YOUSIF MD on Jul 26 2024 8:47AM EST [facility] Radiology Study observation (narrative) [facility] US Guidance for superficial biopsy of Lymph nodeon 07-26-2024 IMPRESSION: ULTRASOU ND GUIDED BIOPSY Site 1: Ultrasound guided biopsy of the lymph node in the right axilla with placement of a clip was successful. Waiting for pathology results. A final report will be issued when these become available. Interpreting Radiologist: Bret Yousif M.D. Electronically signed on: 07/26/2024 Medical Economics Consultant: HERBERTH Transcriestella Date/Time: Jul 26 2024 7:12A Dictated by : BRET YOUSIF MD This examination was interpreted and the report reviewed and electronically signed by: BRET YOUSIF MD on Jul 26 2024 8:47AM EST [facility] * * *Final Report* * * DATE OF EXAM: Jul 26 2024 8:35AM [facility] US BIOPSY AXILLA RT / PROCEDURE REASON: Abnormal imaging * * * * Physician Interpretation * * * * [facility] [address] [facility] [place] [address] HISTORY: 79 year old patient presents for ultrasound guided core biopsy of lymph node in the axilla in the right breast. PATIENT CONSENT: A time out was performed immediately prior to procedure start with the radiology team, correctly identifying the patient name, date of , procedure, anatomy (including marking of site and side), patient position, relevant diagnostic and radiology test results, safety precautions, and procedure-specific equipment needs. The procedure was explained to the patient including the risks, benefits and alternatives. Medications and allergies were also reviewed. The risks, including but not limited to infection and bleeding, were reviewed by the performing physician and the patient agreed to undergo the procedure. The radiologist and technologist were present throughout the entire procedure. Correlation is made to exams dated: 06/01/2024 (ultrasound) and 07/20/2024 (ultrasound). Site 1: Audible Time Out Time: 8:07 Procedure Start Time: 8:13 Procedure Stop Time: 8:19 An ultrasound guided biopsy using real-time ultrasound was performed for the concerning lymph node located in the right breast in the axilla. This was described on the previous ultrasound report. The skin was prepped in the usual manner. Local anesthetic was administered to the access site. A skin geovanni was made in the breast. The abnormality was approached from the lateral aspect. A <> gauge biopsy needle was placed adjacent to the abnormality under ultrasound guidance. Once the needle was documented to be in the correct location, <> passes were made using a Net Element Marquee biopsy device. A Q-shaped clip was then placed under sonographic guidance. A skin closure strip and a sterile dressing were applied to the access site. During the procedure, there were no biopsy complications observed. The specimens were sent to the laboratory for pathological analysis. Post procedure imaging demonstrates the clip in appropriate position at the biopsy target. [facility] Provider, Ccerika Alfonso [facility] - 07/26/2024 * * *Final Report* * * DATE OF EXAM: Jul 26 2024 8:35AM [facility] [facility] US BIOPSY AXILLA RT / PROCEDURE REASON: Abnormal imaging * * * * Physician Interpretation * * * * [facility] [address] [facility] [address] HISTORY: 79 year old patient presents for ultrasound guided core biopsy of lymph node in the axilla in the right breast. PATIENT CONSENT: A time out was performed immediately prior to procedure start with the radiology team, correctly identifying the patient name, date of , procedure, anatomy (including marking of site and side), patient position, relevant diagnostic and radiology test results, safety precautions, and procedure-specific equipment needs. The procedure was explained to the patient including the risks, benefits and alternatives. Medications and allergies were also reviewed. The risks, including but not limited to infection and bleeding, were reviewed by the performing physician and the patient agreed to undergo the procedure. The radiologist and technologist were present throughout the entire procedure. Correlation is made to exams dated: 06/01/2024 (ultrasound) and 07/20/2024 (ultrasound). Site 1: Audible Time Out Time: 8:07 Procedure Start Time: 8:13 Procedure Stop Time: 8:19 An ultrasound guided biopsy using real-time ultrasound was performed for the concerning lymph node located in the right breast in the axilla. This was described on the previous ultrasound report. The skin was prepped in the usual manner. Local anesthetic was administered to the access site. A skin geovanni was made in the breast. The abnormality was approached from the lateral aspect. A <> gauge biopsy needle was placed adjacent to the abnormality under ultrasound guidance. Once the needle was documented to be in the correct location, <> passes were made using a Net Element Marquee biopsy device. A Q-shaped clip was then placed under sonographic guidance. A skin closure strip and a sterile dressing were applied to the access site. During the procedure, there were no biopsy complications observed. The specimens were sent to the laboratory for pathological analysis. Post procedure imaging demonstrates the clip in appropriate position at the biopsy target. IMPRESSION IMPRESSION: ULTRASOUND GUIDED BIOPSY Site 1: Ultrasound guided biopsy of the lymph node in the right axilla with placement of a clip was successful. Waiting for pathology results. A final report will be issued when these become available. Interpreting Radiologist: Bret Yousif M.D. Electronically signed on: 07/26/2024 Medical Economics Consultant: HERBERTH Transcribe Date/Time: Jul 26 2024 7:12A Dictated by : BRET YOUSIF MD This examination was interpreted and the report reviewed and electronically signed by: BRET YOUSIF MD on Jul 26 2024 8:47AM EST [facility] Radiology Study observation (narrative) [facility] CNOVon 07-20-2024 CNOV Office Visit (GENSWS ) -------- CLAUDIA QUEVEDO ([id number]) 1945 M Date Time Provider Department 07/20/24 1:45 PM BOBY ROMANO GENSWS During your visit today, we recorded the following information about you: Pulse Blood pressure Weight 82/minute 99/63 83.9 kg Boby Romano DO 07/27/2024 5:03 PM Signed ESTABLISHED BREAST CANCER FOLLOW UP HPI: 79yo MALE with PMHx Parkinson's disease, HLD, mild cognitive impairment, enlarged prostate, and post-polio muscle weakness. 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 His case was presented at [place] [facility] on 07/14/2024. Discussed re-excision of positive margin with central lumpectomy (including the nipple areolar complex) vs mastectomy. Discussed Choosing Wisely guidelines --> given his age, tumor size, and tumor characteristics we can apply these guidelines to his case and safely omit SLNBx if right axillary US is normal. Medical Oncology: rec adjuvant tamoxifen. Radiation Oncology: rec omission of adjuvant radiation therapy based on age and comorbidities. After the tumor board meeting the patient had a right axillary US completed which showed one suspicious lymph node. Lymph node biopsy ordered. Denies any dizziness, lightheadedness or headaches Denies any change in vision, hearing, or speech Denies any weakness or lateralizing symptoms Denies abdominal pain, jaundice Denies unusual bony or muscles aches or pains Denies shortness of breath or cough Denies weight loss Appetite is good Full 10 point review of systems was completed and is otherwise negative There were no vitals filed for this visit. Gen: well appearing, in no acute distress Eyes: EOMI Breast (examined in seated and supine position): Right breast excision site ecchymosis is resolving. Axilla (examined in seated and supine position): No palpable lymphadenopathy in bilateral axilla Extremities: moves all four extremities, no edema bilateral lower extremities Pulses: radial and DP pulses +2/+4 Skin: warm, dry, intact Assessment: 79yoM w/ invasive ductal carcinoma ER+SC+ HER2- s/p excisional biopsy with positive margins underwent right axillary US earlier today which reported one suspicious appearing lymph node. Plan: - Follow up lymph node biopsy pathology - Patient to see oncology and radiation oncology next week - Return to clinic after lymph node pathology results Boby Romano DO Allergies As of Date: 07/20/2024 (No Known Allergies) Date Reviewed: 07/20/2024 Reviewed by: Yasmine Marroquin MA - Fully Assessed Reason for Visit: Follow Up [171] Primary Visit Diagnosis:Invasive ductal carcinoma of right breast (HCC) [C50.911] Order(s):IMAGING GUIDED BIOPSY INGUINAL/AXILLARY LYMPH NODE [[id number]] Order #: [id number] Prescriptions as of 07/27/2024 - OTC PRODUCT Prevagen: Take one tablet by mouth once daily. - atorvastatin (LIPITOR) 20 mg tablet Take 1 tablet by mouth daily at bedtime. - escitalopram oxalate (LEXAPRO) 10 mg tablet Take 1 tablet by mouth once daily. - carbidopa-levodopa (SINEMET) 25-100 mg per tablet Take 2 tablets in the morning, 1.5 tablets at noon, 1.5 tablets in the evening - tamsulosin (FLOMAX) 0.4 mg Take 1 capsule by mouth once daily. - calcium carbonate (CALCIUM 500 ORAL) Take 1 tablet by mouth once daily. - ascorbic acid (VITAMIN C ORAL) Take 1 tablet by mouth once daily. - Cholecalciferol, Vitamin D3, 25 mcg (1,000 unit) cap Take 1,000 Units by mouth once daily. - multivitamin tablet Take 1 tablet by mouth once daily. 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 RBD (REM behavioral disorder) [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] 08/26/2021 Orthostatic dizziness [R42] 01/05/2023 Urgency of urination [R39.15] 01/05/2023 Constipation [K59.00] 01/05/2024 Word finding difficulty [R47.89] 07/18/2024 Level of Service: OFFICE/OUTPATIENT ESTABLISHED [facility] 10 MIN [37404] Additional E/M codes: VISIT CPLX INHERENT EANDM ASSOC WITH MED * Encounter Status:Closed by BOBY ROMANO on 07/27/24 Normal [facility] US AXILLA ONLY RTon 10-0 [facility] US AXILLA ONLY RT * * *Final Report* * * DATE OF EXAM: Jul 20 2024 11:49AM [id number] - [facility] US AXILLA ONLY RT / PROCEDURE REASON: Invasive ductal carcinoma of breast, right (HCC) * * * * Physician Interpretation * * * * [place] [address] [place] [id number] HISTORY: Patient is 79 years old and is seen for diagnostic evaluation of abnormal mammogram in the right breast. COMPARISON STUDIES: The present examination has been compared to prior imaging studies dated 06/01/2024 (ultrasound) and 06/01/2024 (mammogram). ULTRASOUND TECHNIQUE: Targeted ultrasound of the indicated area was performed. Carver scale images were saved. ULTRASOUND FINDINGS: There is an axillary lymph node in the right breast. Color flow imaging demonstrates vascularity is present. This demonstrates effacement of the normal echogenic fatty hilum. The node measures 0.8 x 0.4 x 0.6cm. Given his recent diagnosis of right breast cancer, this is suspicious for metastatic involvement. The other right axillary lymph nodes appear normal with normal cortical thickness and echogenic fatty sumi. IMPRESSION: Axillary lymph node in the right breast is suspicious of malignancy. An ultrasound guided biopsy is recommended. Findings and recommendation for biopsy were discussed with the patient at the time of the exam. Patient is scheduled to see Dr. Romano 07/20/24. BI-RADS Category 4: Suspicious Interpreting Radiologist: Elena Vernon M.D. Electronically signed on: 07/20/2024 Medical Economics Consultant: HERBERTH Transcribe Date/Time: Jul 20 2024 11:31A Dictated by : ELENA VERNON MD This examination was interpreted and the report reviewed and electronically signed by: ELENA VERNON MD on Jul 20 2024 12:15PM EST [id number] Normal [facility] US Axilla - righton 07-20-20 IMPRESSION: Axillary lymph node in the right breast is suspicious of malignancy. An ultrasound guided biopsy is recommended. Findings and recommendation for biopsy were discussed with the patient at the time of the exam. Patient is scheduled to see Dr. Romano 07/20/24. BI-RADS Category 4: Suspicious Interpreting Radiologist: Elena Vernon M.D. Electronically signed on: 07/20/2024 Medical Economics Consultant: HERBERTH Transcribe Date/Time: Jul 20 2024 11:31A Dictated by : ELENA VERNON MD This examination was interpreted and the report reviewed and electronically signed by: ELENA VERNON MD on Jul 20 2024 12:15PM EST DIVISION OF RADIOLOGY * * *Final Report* * * DATE OF EXAM: Jul 20 2024 11:49AM [facility] 0[facility] - [facility] US AXILLA ONLY RT / PROCEDURE REASON: Invasive ductal carcinoma of breast, right (HCC) * * * * Physician Interpretation * * * * [address] [address] HISTORY: Patient is 79 years old and is seen for diagnostic evaluation of abnormal mammogram in the right breast. COMPARISON STUDIES: The present examination has been compared to prior imaging studies dated 06/01/2024 (ultrasound) and 06/01/2024 (mammogram). ULTRASOUND TECHNIQUE: Targeted ultrasound of the indicated area was performed. Carver scale images were saved. ULTRASOUND FINDINGS: There is an axillary lymph node in the right breast. Color flow imaging demonstrates vascularity is present. This demonstrates effacement of the normal echogenic fatty hilum. The node measures 0.8 x 0.4 x 0.6cm. Given his recent diagnosis of right breast cancer, this is suspicious for metastatic involvement. The other right axillary lymph nodes appear normal with normal cortical thickness and echogenic fatty sumi. DIVISION OF RADIOLOGY Provider, [facility] - 07/20/2024 * * *Final Report* * * DATE OF EXAM: Jul 20 2024 11:49AM [facility] 0592 - [facility] US AXILLA ONLY RT / PROCEDURE REASON: Invasive ductal carcinoma of breast, right (HCC) * * * * Physician Interpretation * * * * [address] [address] HISTORY: Patient is 79 years old and is seen for diagnostic evaluation of abnormal mammogram in the right breast. COMPARISON STUDIES: The present examination has been compared to prior imaging studies dated 06/01/2024 (ultrasound) and 06/01/2024 (mammogram). ULTRASOUND TECHNIQUE: Targeted ultrasound of the indicated area was performed. Carver scale images were saved. ULTRASOUND FINDINGS: There is an axillary lymph node in the right breast. Color flow imaging demonstrates vascularity is present. This demonstrates effacement of the normal echogenic fatty hilum. The node measures 0.8 x 0.4 x 0.6cm. Given his recent diagnosis of right breast cancer, this is suspicious for metastatic involvement. The other right axillary lymph nodes appear normal with normal cortical thickness and echogenic fatty sumi. IMPRESSION IMPRESSION: Axillary lymph node in the right breast is suspicious of malignancy. An ultrasound guided biopsy is recommended. Findings and recommendation for biopsy were discussed with the patient at the time of the exam. Patient is scheduled to see Dr. Romano 07/20/24. BI-RADS Category 4: Suspicious Interpreting Radiologist: Elena Vernon M.D. Electronically signed on: 07/20/2024 Medical Economics Consultant: HERBERTH Transcribe Date/Time: Jul 20 2024 11:31A Dictated by : ELENA VERNON MD This examination was interpreted and the report reviewed and electronically signed by: ELENA VERNON MD on Jul 20 2024 12:15PM EST [facility] Radiology Study observation (narrative) [facility] US Axilla - rightOrdered By: [facility] Provider on 07-20-2024 [facility] CNOVon 07-06-2024 CNOV Office Visit (NREUS2 ) -------- CLAUDIA QUEVEDO ([id number]) 1945 M Date Time Provider Department 07/06/24 1:30 PM SHANEKA FRIEND NREUS2 During your visit today, we recorded the following information about you: Shaneka Friend MD 07/18/2024 10:52 PM Signed [facility] - FOLLOW UP EVALUATION Evans Whittaker MD [id number] [facility] [id number] Dear Evans Whittaker MD: I had the pleasure of seeing Mr. Quevedo for follow-up today. As you know he is a 79 year old right-handed male with a history of PD since 2019. 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 Not currently Interval History: The patient has been newly diagnosed with breast cancer and is experiencing a gradual deterioration of his Parkinson's disease. Compared to the last visit, his tremor has worsened, with some postural tremor, particularly noticeable while eating. Despite these symptoms, the patient continues to engage in physical exercise, including treadmill walking and strength training. However, he reports that his walking is deteriorating, and he has become more cautious due to a fear of falling, although no falls or freezing of gait have occurred recently. Cognitively, the patient is experiencing some short-term memory issues. His sleep is disrupted three times a week, primarily by talking in his sleep, though his mood remains stable. He reports no hallucinations. Movement Disorders Medications Schedule - as of the start of the visit: Medications 8AM 1PM 4:30 PM carbidopa/ levodopa 25 mg/ 100 mg 2 1.5 1.5 Lexapro 10 mg 1 Parkinson's Motor Complications Medication benefit onset: unclear Medication duration: unclear Wearing off: no Painful off-state dystonia: no Dyskinesia: no Prior Anti-Parkinson Therapies none Questionnaires: Mood/Behavior Depression: PHQ-9 Score: 2 usually representing no significant (0-4) depression. Anxiety: Finally, the following table shows the patient's overall global physical and mental health using the PROMIS scale: PROMIS-10 Flowsheet Row Office Visit from 05/10/2024 in [facility] Office Visit from 11/10/2023 in [facility] Global Physical Health T Score 50.8 50.8 Global Mental Health T Score 62.5 62.5 0-10 Standard Pain Scale 4 4 *PROMIS-10 scoring scale: mean = 50, over 50 is above average, under 50 is below average ALLERGIES No Known Allergies Current Outpatient Medications Medication Sig atorvastatin (LIPITOR) 20 mg tablet Take 1 tablet by mouth daily at bedtime. escitalopram oxalate (LEXAPRO) 10 mg tablet Take 1 tablet by mouth once daily. carbidopa-levodopa (SINEMET) 25-100 mg per tablet Take 2 tablets in the morning, 1.5 tablets at noon, 1.5 tablets in the evening tamsulosin (FLOMAX) 0.4 mg Take 1 capsule by mouth once daily. calcium carbonate (CALCIUM 500 ORAL) Take by mouth once daily. ascorbic acid (VITAMIN C ORAL) Take by mouth once daily. Cholecalciferol, Vitamin D3, 25 mcg (1,000 unit) cap Take 1,000 Units by mouth once daily. multivitamin tablet Take 1 tablet by mouth once daily. No current facility-administered medications for this visit. Objective Vital Signs: SpO2 97% Orthostatic Vitals: Sitting: BP 143/84 Pulse 77 Standing: BP 127/79 Pulse 87 No LMP for male patient. There is no height or weight on file to calculate BMI. General Neurological Examination: Neurological Exam Mental Status Awake, alert and oriented to person, place and time. Recent and remote memory are intact. Speech is normal. Language is fluent with no aphasia. Attention and concentration are normal. Fund of knowledge is appropriate for level of education. Cranial Nerves CN II: Visual acuity is normal. Visual casiano full to confrontation. Right funduscopic exam: disc intact. Left funduscopic exam: disc intact. CN III, IV, : Extraocular movements intact bilaterally. Normal lids and orbits bilaterally. Pupils equal round and reactive to light bilaterally. CN V: Facial sensation is normal. CN VII: Full and symmetric facial movement. CN VIII: Hearing is normal. CN IX, X: Palate elevates symmetrically. Normal gag reflex. CN XI: Shoulder shrug strength is normal. CN XII: Tongue midline without atrophy or fasciculations. Motor Normal muscle bulk throughout. Normal muscle tone. No abnormal involuntary movements. Strength is 5/5 throughout all four extremities. Sensory Sensation is intact to light touch, pinprick, vibration and proprioception in all four extremities. Reflexes Right Left Brachioradialis 2+ 2+ Biceps 2+ 2+ Triceps 2+ 2+ Patellar 2+ 2+ Achilles 2+ 2+ (more content not included)... Normal [facility] CNOV Office Visit (GENSWS ) -------- CLAUDIA QUEVEDO ([id number]) 1945 M Date Time Provider Department 07/06/24 10:30 AM BOBY ROMANO GENSWS During your visit today, we recorded the following information about you: Boby Romano DO 07/13/2024 2:13 PM Signed General Surgery New Patient REASON FOR VISIT Claudia Quevedo is a 79 year old male who is scheduled for a consult at the request of Dr. Seda Meadows for Follow Up (Schedule surgery, follow up right breast biopsy ). My final recommendations will be communicated back to the requesting physician by the way of the shared medical record, fax, or via US Mail History of Present Illness: Claudia Quevedo is a 79 year old male with contributing past medical and surgical history significant for Parkinson's disease, HLD, mild cognitive impairment, enlarged prostate, and post-polio muscle weakness. 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 He was initially seen in clinic by Dr. Meadows on 06/06/2024 for palpable right breast mass with abnormal mammogram. US right breast 06/01/2024 The 1.2 cm x 0.9 cm x 1.1 cm lobulated mass in the right breast is suspicious of malignancy. An ultrasound guided biopsy is recommended. Mammogram 06/01/2024 IMPRESSION: SUSPICIOUS The 1.2 cm x 0.9 cm x 1.1 cm lobulated mass in the right breast is suspicious of malignancy. An ultrasound guided biopsy is recommended. Negative right axillary ultrasound. He returned to clinic on 06/27/2024 for excisional biopsy. Lesion measured 0.8cm in size. FINAL DIAGNOSIS A. 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 ---The surgical margin is positive for invasive carcinoma. ---Please see comment. Diagnosis Comment Immunoperoxidase studies for estrogen receptor (ER), progesterone receptor (SC), and HER2 are pending, the results of which will be reported in a linked document. Gross Description A. Breast, Right, Excision of Lesion Received in formalin, labeled right breast is an unoriented, irregular fragment of yellow-pace brown fibrofatty breast tissue measuring 1.4 x 1.3 x 0.8 cm and weighing 0.7 g. The outer surface is inked entirely black. Sectioning reveals a pace-white, firm, well-circumscribed nodule measuring 1 x 0.7 x 0.7 cm. The specimen is submitted entirely in A1. KSZ June 28, 2024 1:01 PM Gross examination performed at [facility], [address] [place] [address] Component ER status Positive (greater than 10%) ER % staining 99 Estrogen Receptor (Staining Intensity) Strong Estrogen Receptor Internal Control Present and Stained as Expected Estrogen Receptor External Control Present and Stained as Expected SC status Positive (greater than or equal to 1%) SC % staining 99 Progesterone Receptor (Staining Intensity) Strong Progesterone Receptor Internal Control Present and Stained as Expected Progesterone Receptor External Control Present and Stained as Expected HER2 IHC Status Negative for HER2 Overexpression HER2 IHC Score 1+ Tumor Type Primary Invasive Breast Carcinoma Breast Tumor Grade Grade 1 [facility] Block ID A1 Fixative Formalin, 10% Neutral Buffered Cold Ischemia Time Not Provided Total Fixation Time Not Provided Latest ASCP/CAP guidelines for fixation met Indeterminate (See Comment) Was Specimen Decalcified No Interpretation Comment and Reference Range Reference Range for Hormone Receptors: Staining for SC of greater than or equal to 1% of the tumor cells is considered positive. Staining for ER of 1-10% of the tumor cells is considered low positive. Staining for ER of greater than 10% of the tumor cells is considered positive. Staining for ER or SC of less than 1% is considered negative. Reference Ranges for HER2 Immunohistochemistry: Positive (3+): Complete, intense circumferential membrane staining in greater than 10% of tumor cells. Equivocal (2+): Weak to moderate complete membrane staining observed in greater than 10% of tumor cells. Negative (1+): Incomplete, faint membrane staining in greater than 10% of tumor cells. Negative (0): No staining or incomplete faint membrane staining in less than or equal to 10% of tumor cells. Interpretation Comments: Consideration of follow-up testing for HER2 (ERBB2) status by fluorescence in situ hybridization (FISH) for all equivocal (2+) results is recommended and will be ordered as a reflex test if FISH was not a testing methodology already employed. Note for ER low results. For malignancy (more content not included)... Normal [facility] CNPNon 07-06-2024 CNPN Telephone (HEMAWS) -------- CLAUDIA QUEVEDO ([id number]) 1945 M Date Time Provider Department 07/06/24 DIAZ CABRERA During your visit today, we recorded the following information about you: Isadora Sue 07/06/2024 11:45 AM Signed Patient was seen by Boby Romano DO today and then stopped after appointment to schedule. Scheduled with Dr. Cabrera and Dr. Izaguirre on 07/27. Isadora Sue Allergies As of Date: 07/06/2024 (No Known Allergies) Date Reviewed: 07/06/2024 Reviewed by: Ofe Garcia, RN - Fully Assessed Reason for Visit: Appointment [186] Prescriptions as of 07/06/2024 - atorvastatin (LIPITOR) 20 mg tablet Take 1 tablet by mouth daily at bedtime. - escitalopram oxalate (LEXAPRO) 10 mg tablet Take 1 tablet by mouth once daily. - carbidopa-levodopa (SINEMET) 25-100 mg per tablet Take 2 tablets in the morning, 1.5 tablets at noon, 1.5 tablets in the evening - tamsulosin (FLOMAX) 0.4 mg Take 1 capsule by mouth once daily. - calcium carbonate (CALCIUM 500 ORAL) Take by mouth once daily. - ascorbic acid (VITAMIN C ORAL) Take by mouth once daily. - Cholecalciferol, Vitamin D3, 25 mcg (1,000 unit) cap Take 1,000 Units by mouth once daily. - multivitamin tablet Take 1 tablet by mouth once daily. 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 Romano discussed at appt yesterday. There are no orders for patient to be scheduled with her. Please advise. Thank you Nishi Dejesus 07/05/2024 10:[address] Meadows's office note IMPRESSION: status post right breast biopsy DISCUSSION: I have discussed the above with the patient and his . I have recommended further surgical evaluation. I have offered locations of either [facility] or [facility], patient chooses former. Any potential hematology/oncology or radiation oncology follow up can be done in [place]. Patient will also require genetic testing when appropriate. I will refer patient to Dr. Romano for consideration of surgery at [facility]. Dr. Romano are you wishing patient to be seen by you in person first before discussing surgery dates as no order is in place Nishi Dejesus Selling Manager Ofe Garcia RN 07/05/2024 10:50 AM Signed ----- Message from Seda Meadows MD sent at 07/05/2024 7:23 AM EDT ----- Please call this patient and let him know that Dr. Romano will be able to see him tomorrow at 10:30 in the office. Thank you Ofe Garcia RN 07/05/2024 10:54 AM Signed Spoke with Claudia, scheduled with Dr. Romano on 07/06/24 at 1030 am. Ofe Garcia RN July 05, 2024 10:54 AM Allergies As of Date: 07/05/2024 (No Known Allergies) Date Reviewed: 07/04/2024 Reviewed by: Danelle Granados LPN - Fully Assessed Reason for Visit: Patient Update [1234] Prescriptions as of 07/05/2024 - atorvastatin (LIPITOR) 20 mg tablet Take 1 tablet by mouth daily at bedtime. - escitalopram oxalate (LEXAPRO) 10 mg tablet Take 1 tablet by mouth once daily. - carbidopa-levodopa (SINEMET) 25-100 mg per tablet Take 2 tablets in the morning, 1.5 tablets at noon, 1.5 tablets in the evening - tamsulosin (FLOMAX) 0.4 mg Take 1 capsule by mouth once daily. - calcium carbonate (CALCIUM 500 ORAL) Take by mouth once daily. - ascorbic acid (VITAMIN C ORAL) Take by mouth once daily. - Cholecalciferol, Vitamin D3, 25 mcg (1,000 unit) cap Take 1,000 Units by mouth once daily. - multivitamin tablet Take 1 tablet by mouth once daily. 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 RBD (REM behavioral disorder) [G47.52] 08/26/2021 Orthostatic dizziness [R42] 01/05/2023 Urgency of urination [R39.15] 01/05/2023 Constipation [K59.00] 01/05/2024 Encounter Status:Closed by OFE GARCIA on 07/05/24 [facility] CNOVon 07-04-2024 CNOV Office Visit (GENSWS ) -------- CLAUDIA QUEVEDO ([id number]) 1945 M Date Time Provider Department 07/04/24 2:15 PM SEDA MEADOWS During your visit today, we recorded the following information about you: Temperature Pulse Blood pressure Weight 98 degrees 66/minute 124/75 82.3 kg Height 1.803 m Seda Meadows MD 07/05/2024 7:23 AM Signed FOLLOW UP VISIT NAME: Claudia Quevedo CLINIC NO.: [id number] DATE OF SERVICE: 07/04/2024 : 1945 REFERRING PHYSICIAN: MD Claudia Long is status post right breast biopsy done on 06/27/2024 Pathology reveals: ---Invasive ductal carcinoma, [place]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 ---The surgical margin is positive for invasive carcinoma. Estrogen receptor positive noted in a separate report. Patient notes no major problems after procedure VITALS: Blood pressure 124/75, pulse 66, temperature 36.7 ?C (98 ?F), height 180.3 cm (5' 11 ), weight 82.3 kg (181 lb 6.4 oz), SpO2 95%. On examination, area with ecchymoses, no evidence of infection, wound healing appropriately. Assessment IMPRESSION: status post right breast biopsy DISCUSSION: I have discussed the above with the patient and his . I have recommended further surgical evaluation. I have offered locations of either [facility] or [facility], patient chooses former. Any potential hematology/oncology or radiation oncology follow up can be done in [place]. Patient will also require genetic testing when appropriate. I will refer patient to Dr. Romano for consideration of surgery at [facility]. 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 - escitalopram oxalate (LEXAPRO) 10 mg tablet Take 1 tablet by mouth once daily. - carbidopa-levodopa (SINEMET) 25-100 mg per tablet Take 2 tablets in the morning, 1.5 tablets at noon, 1.5 tablets in the evening - tamsulosin (FLOMAX) 0.4 mg Take 1 capsule by mouth once daily. - calcium carbonate (CALCIUM 500 ORAL) Take by mouth once daily. - ascorbic acid (VITAMIN C ORAL) Take by mouth once daily. - Cholecalciferol, Vitamin D3, 25 mcg (1,000 unit) cap Take 1,000 Units by mouth once daily. - multivitamin tablet Take 1 tablet by mouth once daily. 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 Follow-up and Disposition History for Encounter Date Provider Department Center 07/04/2024 [id number] MEADOWSLisa [facility] Encounter Status:Closed by SEDA MEADOWS on 07/05/24 Normal [facility] BREAST MARKERSon 06-27-2024 AP BIOMARKER DISCLAIMER Normal [facility] Comment on above: Order Comment: Speci men Type: TISSUE SPECIMENOrdering Facility: [facility] Address: [address] [place] [address] Result Comment: Quita singh Developed Test (LDT) Disclaimer: Performance characteristics of immunohistochemical, immunofluorescent and chromogenic in-situ hybridization tests have been determined by the performing laboratory within [facility]???s Rashawn Richmond Pathology and Laboratory Medicine Department ([facility], [facility], [facility], [facility], [facility], [facility], or [facility]) in a manner consistent with CLIA requirements. One or more of these tests have not been cleared or approved by the FDA. [facility] is regulated under CLIA as qualified to perform high-complexity testing. These tests are used for clinical purposes. They should not be regarded as investigational or for research. Positive and negative controls stain appropriately. Performed By: #### L [id number], S ####[facility]IA [id number] [place] [address] [place] AP BLOCK ID A1 Normal [facility] Comment on above: Order Comment: Speci julienne Type: TISSUE SPECIMENOrdering Facility: [facility] Address: [address] [place] [address] Performed By: #### L [id number], S ####[facility] LABCLIA [id number] [place] [address] [place] ASCP/CAP GUIDELINES FOR FIXATION Indeterminate Normal [facility] Comment on above: Order Comment: Missy robins Type: TISSUE SPECIMENOrdering Facility: [facility] Address: [address] [place] [address] Performed By: #### L [id number], S ####[facility] [id number] [place] [address] [place] BIOMARKER INTERPRETATION COMMENT AND REFERENCE RANGE Normal [facility] Comment on above: Order Comment: Missy robins Type: TISSUE SPECIMENOrdering Facility: [facility] Address: [address] [place] [address] Result Comment: Refe rence Range for Hormone Receptors: Staining for SC of greater than or equal to 1% of the tumor cells is considered positive. Staining for ER of 1-10% of the tumor cells is considered low positive. Staining for ER of greater than 10% of the tumor cells is considered positive. Staining for ER or SC of less than 1% is considered negative. Reference Ranges for HER2 Immunohistochemistry: Positive (3+): Complete, intense circumferential membrane staining in greater than 10% of tumor cells. Equivocal (2+): Weak to moderate complete membrane staining observed in greater than 10% of tumor cells. Negative (1+): Incomplete, faint membrane staining in greater than 10% of tumor cells. Negative (0): No staining or incomplete faint membrane staining in less than or equal to 10% of tumor cells. Interpretation Comments: Consideration of follow-up testing for HER2 (ERBB2) status by fluorescence in situ hybridization (FISH) for all equivocal (2+) results is recommended and will be ordered as a reflex test if FISH was not a testing methodology already employed. Note for ER low results. For malignancy with a low level (1%-10%) of ER expression by immunohistochemistry, there are limited data on the overall benefit of endocrine therapies for a patient with low level (1%-10%) ER expression, but they currently suggest possible benefits, so patients are considered eligible for endocrine treatment. Some data indicate that invasive cancers with these results are heterogeneous in behavior and biology and often have gene expression profiles more similar to ER-negative cancers. Performed By: #### L [id number], S ####[facility]CLIA [id number] [place] [address] [place] BIOMARKER METHOD Normal [facility] Comment on above: Order Comment: Speci men Type: TISSUE SPECIMENOrdering Facility: [facility] Address: [address] [place] [address] Result Comment: Estr ogen Receptor: Food and Drug Administration (FDA) cleared: [employer], [place], [place] Primary Antibody: SP1 Progesterone Receptor: FDA cleared: [employer], [place] Primary Antibody: IE2 HER2 (ERBB2) by IHC: FDA cleared: [employer], [place], [place] Primary Antibody:4B5 The hormone receptor tests were performed and reported in accordance with the guidelines approved by the [place] Society [employer] Clinical Oncologists and the College of [place] [employer]. Yoselin AGUILAR, et al. Estrogen and Progesterone Receptor Testing in Breast Cancer: [place] Society of Clinical Oncologists and the College of [place] Pathologists Guideline Update. Arch Pathol Lab Med. 2019;144(5):547-563. PMID: [id number]. The hormone receptor assays have been internally validated on decalcified tissues (for [facility] only). Estrogen and progesterone receptor results are valid if tissue was processed according to ASCO/CAP guidelines. Antibody and Detection System: [employer] Pathway anti-HER2 rabbit monoclonal antibody (clone 4B5), [employer] Confirm anti-estrogen receptor rabbit monoclonal antibody (clone SP1) and [employer] anti-progesterone receptor rabbit monoclonal antibody (clone IE2) detected with the [employer] UltraView Univeral DAB Detection Kit (indirect biotin-free detection), [employer], [place], [place]. Control Slides: Cell line controls with high, equivocal, low, and negative HER2 protein expression, along with known positive control tissue and the patient's tissue, are evaluated for HER2 expression. The HER2 immunohistochemistry assay was developed, validated, scored, and reported in accordance with the guidelines approved by the [place] Society of Clinical Oncologists and the College of [place]. Catalina COY et al. Arch Pathol Lab Med. 2018;1379(9) The HER2 assay has not been validated on decalcified tissues. Given the possibility of false negative results on decalcified specimens, results should be interpreted with caution. Performed By: #### L [id number], S ####[facility]CLIA [id number] [place] [address] [place] BREAST TUMOR GRADE Grade 1 Normal [facility] Comment on above: Order Comment: Speci men Type: TISSUE SPECIMENOrdering Facility: [facility] Address: [address] [place] [address] Performed By: #### L [id number], S ####[facility]CLIA [id number] [address] OF [place] CASE NUMBER INVASIVE [id number] Normal [facility] Comment on above: Order Comment: Speci men Type: TISSUE SPECIMENOrdering Facility: [facility] Address: [address] [place] [address] Performed By: #### L [id number], S ####[facility]CLIA [id number] [place] [id number] [place] COLD ISCHEMIA TIME Not Provided Normal [facility] Comment on above: Order Comment: Speci men Type: TISSUE SPECIMENOrdering Facility: [facility] Address: [address] [place], [place] [id number] Performed By: #### L [id number], S ####[facility]CLIA [id number] [place] [address] [place] ESTROGEN RECEPTOR (% TUMOR STAINING) 99 Normal [facility] Comment on above: Order Comment: Speci men Type: TISSUE SPECIMENOrdering Facility: [facility] Address: [address] [place] [address] Performed By: #### L [id number], S ####[facility]CLIA [id number] [place] [address] [place] ESTROGEN RECEPTOR (STAINING INTENSITY) Strong Normal [facility] Comment on above: Order Comment: Speci men Type: TISSUE SPECIMENOrdering Facility: [facility] Address: [address] [place], [place] [address] Performed By: #### L [id number], S ####[facility]CLIA [id number] [place] [address] [place] ESTROGEN RECEPTOR EXTERNAL CONTROL Present and Stained as Expected Normal [facility] Comment on above: Order Comment: Speci men Type: TISSUE SPECIMENOrdering Facility: [facility] Address: [address] [place] [address] Performed By: #### L [id number], S ####[facility]CLIA [id number] [place] [address] [place] ESTROGEN RECEPTOR INTERNAL CONTROL Present and Stained as Expected Normal [facility] Comment on above: Order Comment: Speci men Type: TISSUE SPECIMENOrdering Facility: [facility] Address: [address] [place], [place] [address] Performed By: #### L [id number], S ####[facility]CLIA [id number] [place] [address] [place] ESTROGEN RECEPTOR STATUS (INVASIVE) Positive Normal [facility] Comment on above: Order Comment: Speci men Type: TISSUE SPECIMENOrdering Facility: [facility] Address: [address] [place] [address] Performed By: #### L [id number], S ####[facility]CL[facility] [id number] [place] [address] [place] FINAL PERFORMING LAB Normal [facility] Comment on above: Order Comment: Speci men Type: TISSUE SPECIMENOrdering Facility: [facility] Address: [address] [place] [address] Result Comment: Diag nostic interpretation performed at: [facility], [address] [place] [address] CLIA# [id number] Underwear Welter: Miquel Ardon MD Electronically signed out by: Francisco Kearney MD Performed By: #### L [id number], S ####[facility]CLIA [id number] [place] [address] [place] FIXATIVE Formalin, 10% Neutra l Buffered Normal [facility] Comment on above: Order Comment: Speci men Type: TISSUE SPECIMENOrdering Facility: [facility] Address: [address] [place] [address] Performed By: #### L [id number], S ####[facility]CLIA [id number] [place] [address] [place] HER2 SCORE 1+ Normal [facility] Comment on above: Order Comment: Speci men Type: TISSUE SPECIMENOrdering Facility: [facility] Address: [address] [place] [address] Performed By: #### L [id number], S ####[facility]CLIA [id number] [address] [id number] [address] [place] HER2 STATUS (INVASIVE) Negative Normal [facility] Comment on above: Order Comment: Speci men Type: TISSUE SPECIMENOrdering Facility: [facility] Address: [address] [place], [place] [address] Performed By: #### L [id number], S ####[facility]CLIA [id number] [place] [id number] [place] PROGESTERONE RECEPTOR (% TUMOR STAINING) 99 Normal [facility] Comment on above: Order Comment: Speci men Type: TISSUE SPECIMENOrdering Facility: [facility] Address: [address] [place], [place] [address] Performed By: #### L [id number], S ####[facility]CLIA [id number] [place] [address] [place] PROGESTERONE RECEPTOR (STAINING INTENSITY) Strong Normal [facility] Comment on above: Order Comment: Speci men Type: TISSUE SPECIMENOrdering Facility: [facility] Address: [address] [place], [place] [id number] Performed By: #### L [id number], S ####[facility] LABCLIA [id number] [place] [address] [place] PROGESTERONE RECEPTOR EXTERNAL CONTROL Present and Stained as Expected Normal [facility] Comment on above: Order Comment: Speci men Type: TISSUE SPECIMENOrdering Facility: [facility] Address: [address] [place], [place] [id number] Performed By: #### L [id number], S ####[facility] LABCLIA [id number] [place] [address] [place] PROGESTERONE RECEPTOR INTERNAL CONTROL Present and Stained as Expected Normal [facility] Comment on above: Order Comment: Speci men Type: TISSUE SPECIMENOrdering Facility: [facility] Address: [address] [place], [place] [id number] Performed By: #### L [id number], S ####[facility] LABCLIA [id number] [place] PROGESTERONE RECEPTOR STATUS (INVASIVE) Positive Normal [facility] Comment on above: Order Comment: Speci men Type: TISSUE SPECIMENOrdering Facility: [facility] Address: [address] [place] [address] Performed By: #### L [id number], S ####[facility] LABCLIA [id number] [place] [address] [place] TOTAL FIXATION TIME Not Provided Normal [facility] Comment on above: Order Comment: Speci men Type: TISSUE SPECIMENOrdering Facility: [facility] Address: [address] [place] [address] Performed By: #### L [id number], S ####[facility] LABCLIA [id number] [place] [address] [place] TUMOR TYPE (INVASIVE) Primary Invasive B reast Carcinoma Normal [facility] Comment on above: Order Comment: Speci men Type: TISSUE SPECIMENOrdering Facility: [facility] Address: [address] [place] [address] Performed By: #### L [id number], S ####[facility] LABCLIA [id number] [place] [address] [place] WAS SPECIMEN DECALCIFIED No Normal [facility] Comment on above: Order Comment: Speci men Type: TISSUE SPECIMENOrdering Facility: [facility] Address: [address] [place] [address] Performed By: #### L [id number], S ####[facility] LABCLIA [id number] [place] [address] [place] CNOVon 06-27-2024 CNOV Office Visit (GENSWS ) -------- CLAUDIA QUEVEDO ([id number]) 1945 M Date Time Provider Department 06/27/24 9:30 AM SEDA MEADOWS During your visit today, we recorded the following information about you: Carlos Mackenzie RN 06/27/2024 9:47 AM Addendum The following instructions are important for you related to your office visit today with the [facility]. Instructions After SKIN EXCISION-SUTURES Apply icepack to the area for 20 minutes at a time. You can remove the dressing in five days. If the dressing becomes soaked or had significant drainage, the dressing should be changed. If there is minor bleeding from this skin edge, you should hold pressure on the incision until the bleeding stops. If there is continued bleeding, you should contact our office immediately. You do not need to leave a dressing on the wound after five days. If the wound shows signs of redness, inflammation, or purulent drainage, you should contact our office immediately. You should keep the wound dry for the first five days. After that time, you may wash the wound with gentle soap and water. The wound should not be immersed in a pool, bathtub, or even hot tub. We prefer to check the incision. Please make an appointment to return to our office in 1 week to go over path results. If you note any additional difficulties, questions, or concerns, you should contact our office immediately @ [phone] and ask to be transferred to the General Surgery department. Carlos Mackenzie RN 06/28/2024 8:48 AM Signed UNIVERSAL PROTOCOL / SAFETY CHECKLIST Procedure to be Performed: Excisional right breast biopsy Sign In: A Moment of CARE was completed. Personnel directly involved with the procedure wore the appropriate PPE (Personal Protective Equipment). No special equipment needed. Patient/Surrogate Stated/Verified: PATIENT VERIFIED(optional for EMERGENT procedures): Patient name, Date of , Relevant allergies, and The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 Respiratory rate 12 /min Saeed Davis PA-C Work Phone: [facility] 01-06-2023 14:06-0400 SaO2% (BldA) [Mass fraction] 96 % Saeed Davis PA-C Work Phone: [facility] 01-06-2023 14:06-0400 Systolic blood pressure 136 mm[Hg] Saeed Davis PA-C Work Phone: [facility] 01-01-2023 14:32-0400 SaO2% (BldA) [Mass fraction] 97 % Shaneka Friend MD Work Phone: [facility] 01-01-2023 14:29-0400 Body weight 85.09 kg Shaneka Friend MD Work Phone: [facility] 01-01-2023 14:29-0400 Diastolic blood pressure 77 mm[Hg] Shaneka Friend MD Work Phone: [facility] 01-01-2023 14:29-0400 Heart rate 84 /min Shaneka Friend MD Work Phone: [facility] 01-01-2023 14:29-0400 Systolic blood pressure 130 mm[Hg] Shaneka Friend MD Work Phone: [facility] 12-04-2022 15:53-0500 Body temperature 97.7 [degF] Evans Whittaker MD Work Phone: [facility] 12-04-2022 15:53-0500 Body weight 82.92 kg Evans Whittaker MD Work Phone: [facility] 12-04-2022 15:53-0500 Diastolic blood pressure 62 mm[Hg] Evans Whittaker MD Work Phone: [facility] 12-04-2022 15:53-0500 Heart rate 71 /min Evans Whittaker MD Work Phone: [facility] 12-04-2022 15:53-0500 Respiratory rate 16 /min Evans Whittaker MD Work Phone: [facility] 12-04-2022 15:53-0500 SaO2% (BldA) [Mass fraction] 97 % Evans Whittaker MD Work Phone: [facility] 12-04-2022 15:53-0500 Systolic blood pressure 108 mm[Hg] Evans Whittaker MD Work Phone: [facility] 12-01-2022 10:17-0500 Body temperature 99.61 [degF] Skip Bucky [employer] Work Phone: [facility] 12-01-2022 10:17-0500 Body weight 84.37 kg Skip Lawler [employer] Work Phone: [facility] 12-01-2022 10:17-0500 Diastolic blood pressure 68 mm[Hg] Skip Lawler [employer] Work Phone: [facility] 12-01-2022 10:17-0500 Heart rate 96 /min Skip Bucky [employer] Work Phone: [facility] 12-01-2022 10:17-0500 Respiratory rate 18 /min Skip Lawler [employer] Work Phone: [facility] 12-01-2022 10:17-0500 SaO2% (BldA) [Mass fraction] 96 % Skip Lawler [employer] Work Phone: [facility] 12-01-2022 10:17-0500 Systolic blood pressure 122 mm[Hg] Skip Lawler [employer] Work Phone: [facility] 10-28-2022 13:19-0500 Body weight 85.28 kg Stefani Ornelas [employer] Work Phone: [facility] 10-28-2022 13:19-0500 Diastolic blood pressure 68 mm[Hg] Stefani Podlogar [employer] Work Phone: [facility] 10-28-2022 13:19-0500 Heart rate 81 /min Stefani Podlogar [employer] Work Phone: [facility] 10-28-2022 13:19-0500 Respiratory rate 16 /min Stefani Podlogar [employer] Work Phone: [facility] 10-28-2022 13:19-0500 SaO2% (BldA) [Mass fraction] 94 % Stefani Podlogar [employer] Work Phone: [facility] 10-28-2022 13:19-0500 Systolic blood pressure 98 mm[Hg] Stefani Podlogar [employer] Work Phone: [facility] 08-21-2022 13:16-0500 SaO2% (BldA) [Mass fraction] 97 % Shaneka Friend MD Work Phone: [facility] 08-21-2022 13:13-0500 Body weight 86.14 kg Shaneka Friend MD Work Phone: [facility] 08-21-2022 13:13-0500 Diastolic blood pressure 72 mm[Hg] Shaneka Friend MD Work Phone: [facility] 08-21-2022 13:13-0500 Heart rate 74 /min Shaneka Friend MD Work Phone: [facility] 08-21-2022 13:13-0500 Systolic blood pressure 132 mm[Hg] Shaneka Friend MD Work Phone: [facility] Encounters Encounter Date Encounter Type Care Provider Facility Start: 07-27-2024 End: 07-27-2024 ambulatory Diaz Cabrera DO Work Phone: Hematology/Oncology Comment on above: Invasive ductal carc inoma of breast, right (HCC) (Primary Dx) Start: 07-27-2024 End: 07-27-2024 Patient encounter procedure Sandy Izaguirre MD Work Phone: Radiation Oncology Comment on above: Invasive ductal carc inoma of breast, right (HCC) Start: 07-26-2024 ambulatory EVANS WHITTAKER Facility:[facility] Start: 07-26-2024 End: 07-26-2024 Subsequent hospital visit by physician Stereo/Ultrasound Biopsy [facility] Comment on above: Arrived Start: 07-20-2024 End: 07-20-2024 ambulatory EVANS WHITTAKER Facility:[facility] Start: 07-20-2024 End: 07-20-2024 Office outpatient visit 10 minutes Boby Romano DO Work Phone: General Surgery Comment on above: Invasive ductal carc inoma of right breast (HCC) (Primary Dx) Start: 07-20-2024 End: 07-20-2024 ambulatory EVANS WHITTAKER Facility:[facility] Start: 07-20-2024 End: 07-20-2024 Subsequent hospital visit by physician [facility] Work Phone: Radiology Comment on above: Invasive ductal carc inoma of breast, right (HCC) [C50.911] Start: 07-14-2024 End: 07-14-2024 Chart abstracting Chidi Gonzalez RN Work Phone: Hematology/Oncology Comment on above: Research ([id number] pres hernandez) Start: 07-06-2024 End: 07-06-2024 Telephone encounter Diaz Cabrera DO Work Phone: Hematology/Oncology Comment on above: Appointment Start: 07-06-2024 End: 07-06-2024 ambulatory EVANS WHITTAKER Facility:[facility] Start: 07-06-2024 End: 07-06-2024 Patient encounter procedure Shaneka Friend MD Work Phone: Neurological [employer] Comment on above: Word finding difficu lty (Primary Dx); Parkinson's disease without dyskinesia or fluctuating manifestations (HCC) Start: 07-06-2024 End: 07-06-2024 ambulatory EVANS WHITTAKER Facility:[facility] Start: 07-06-2024 End: 07-06-2024 Office outpatient visit 40 minutes Boby Malonei DO Work Phone: General Surgery Comment on above: 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, estrogen receptor positive (HCC) (Primary Dx); Invasive ductal carcinoma of breast, right (HCC); Subareolar mass of right breast; Abnormal ultrasound Start: 07-05-2024 End: 07-05-2024 Telephone encounter Seda Meadows MD Work Phone: [address] [place] [address] Comment on above: Patient Update Start: 07-04-2024 End: 07-04-2024 ambulatory EVANS WHITTAKER Facility:[facility] Start: 07-04-2024 End: 07-04-2024 Patient encounter procedure Seda Meadows MD Work Phone: General Surgery Comment on above: 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, estrogen receptor positive (HCC) (Primary Dx) Start: 06-27-2024 End: 06-27-2024 ambulatory EVANS WHITTAKER Facility:[facility] Start: 06-27-2024 End: 06-27-2024 Patient encounter procedure Seda Meadows MD Work Phone: [facility] Comment on above: Subareolar mass of r ight breast; Abnormal ultrasound Start: 06-06-2024 End: 06-06-2024 ambulatory SEDA MEADOWS Facility:[facility] Start: 06-06-2024 End: 06-06-2024 Patient encounter procedure Seda Meadows MD Work Phone: General Surgery Comment on above: Subareolar mass of r ight breast; Abnormal ultrasound of breast Start: 06-01-2024 End: 06-01-2024 ambulatory EVANS WHITTAKER Facility:[facility] Start: 06-01-2024 End: 06-01-2024 Subsequent hospital visit by physician [facility] Work Phone: Radiology Comment on above: Breast mass in male [N63.0] Start: 05-23-2024 Telephone encounter Gerson Whittaker MD Work Phone: [facility] Comment on above: Results Start: 05-20-2024 Telephone encounter Gerson Whittaker MD Work Phone: [facility] Comment on above: Results Start: 05-13-2024 Telephone encounter Gerson Whittaker MD Work Phone: [facility] Comment on above: Results, Lab Start: 05-10-2024 End: 05-10-2024 ambulatory EVANS WHITTAKER Facility:[facility] Start: 05-10-2024 End: 05-10-2024 Patient encounter procedure Evans Whittaker MD Work Phone: [facility] Comment on above: Breast mass in male (Primary Dx); Disorder of breast, unspecified; Other signs and symptoms in breast; Anxiety; Parkinson's disease without dyskinesia or fluctuating manifestations (HCC); Pure hypercholesterolemia; Enlarged prostate Start: 05-10-2024 End: 05-10-2024 ambulatory EVANS WHITTAKER Facility:[facility] Start: 12-30-2023 End: 12-30-2023 ambulatory EVANS WHITTAKER Facility:[facility] Start: 12-30-2023 End: 12-30-2023 Patient encounter procedure Shaneka Friend MD Work Phone: [facility] Comment on above: Parkinson's disease without dyskinesia or fluctuating manifestations (HCC) (Primary Dx); RBD (REM behavioral disorder); Constipation, unspecified constipation type Start: 11-10-2023 Patient encounter procedure ARJUN WHITTAKER [facility] Start: 11-10-2023 End: 11-10-2023 ambulatory EVANS WHITTAKER Facility:[facility] Start: 09-28-2023 End: 09-28-2023 Subsequent hospital visit by physician Xr Replaced By [facility] [place] Work Phone: Radiology Comment on above: Upper back pain on l eft side [M54.9] Start: 09-28-2023 End: 09-28-2023 Patient encounter procedure Evans Whittaker MD Work Phone: [facility] [place] Comment on above: Upper back pain on l eft side (Primary Dx); Rib pain on left side Start: 09-28-2023 End: 09-28-2023 ambulatory EVANS WHITTAKER Facility:[facility] Start: 09-21-2023 End: 09-21-2023 Subsequent hospital visit by physician Ana Replaced By [facility] [place] Work Phone: Radiology Comment on above: Rib injury [S29.9XXA ] Start: 09-21-2023 End: 09-21-2023 ambulatory EVANS WHITTAKER Facility:[facility] Start: 09-21-2023 End: 09-21-2023 Patient encounter procedure Skip Lawler APRN.RAMP BOSS Work Phone: [facility] Comment on above: Rib injury (Primary Dx) Start: 09-17-2023 End: 09-17-2023 ambulatory EVANS WHITTAKER Facility:[facility] Start: 05-11-2023 End: 05-11-2023 Patient encounter procedure Stefani Ornelas APRN.RAMP BOSS Work Phone: [facility] [place] Comment on above: Epigastric pain (Felisa danelle Dx) Start: 04-17-2023 Telephone encounter Gerson Whittaker MD Work Phone: [facility] [place] Comment on above: Medication Request Start: 04-16-2023 End: 04-16-2023 Nursing evaluation of patient and report Mi Nurse Work Phone: [facility] [place] Comment on above: Need for vaccination (Primary Dx) Start: 03-17-2023 End: 03-17-2023 Patient encounter procedure Evans Whittaker MD Work Phone: [facility] [place] Comment on above: Travel advice encoun ter (Primary Dx) Start: 02-11-2023 Refill Evnas Whittaker MD Work Phone: [facility] [place] Comment on above: Refill Request Start: 01-19-2023 End: 01-19-2023 Patient encounter procedure Lianna Moss CROWN WHEEL ASSEMBLER.RAMP BOSS Work Phone: Dermatology Comment on above: Skin pain (Primary D x) Start: 01-06-2023 End: 01-06-2023 Patient encounter procedure Saeed Davis PA-C Work Phone: Urology Comment on above: Frequent urination ( Primary Dx) Start: 01-01-2023 End: 01-01-2023 Patient encounter procedure Shaneka Friend MD Work Phone: [facility] Comment on above: Parkinson's disease (HCC) (Primary Dx); Orthostatic dizziness; Urgency of urination; Camptocormia; RBD (REM behavioral disorder) Start: 12-31-2022 Refill Evans Whittaker MD Work Phone: [facility] [place] Comment on above: Refill Request Start: 12-18-2022 End: 12-18-2022 Patient encounter procedure Lianna Moss CROWN WHEEL ASSEMBLER.RAMP BOSS Work Phone: Dermatology Comment on above: AK (actinic keratosi s) (Primary Dx); Seborrheic keratosis; Hernandez angioma; Skin pain Start: 12-04-2022 End: 12-04-2022 Patient encounter procedure Evans Whittaker MD Work Phone: [facility] [place] Comment on above: Acute cystitis with hematuria (Primary Dx); Genitourinary complaints Start: 12-03-2022 Telephone encounter Gerson Whittaker MD Work Phone: [facility] [place] Comment on above: Appointment Start: 12-02-2022 Telephone encounter Skip hoffman APRN.RAMP BOSS Work Phone: [facility] Comment on above: Results Start: 12-01-2022 Telephone encounter Manuela purdy PA-C Work Phone: [place] [facility] Comment on above: Results Start: 12-01-2022 End: 12-01-2022 Patient encounter procedure Skip Lawler APRN.RAMP BOSS Work Phone: [place] [facility] Comment on above: Painful urination (P rimary Dx); URI, acute; Bilirubinuria; Acute cystitis with hematuria Start: 10-29-2022 Telephone encounter Stefani ash APRN.RAMP BOSS Work Phone: [facility] [place] Comment on above: Results Start: 10-28-2022 End: 10-28-2022 Patient encounter procedure Stefani Ornelas APRN.RAMP BOSS Work Phone: [facility] [place] Comment on above: Pure hypercholestero lemia (Primary Dx); Concern about skin cancer without diagnosis; Major depressive disorder, remission status unspecified, unspecified whether recurrent; Parkinson's disease (HCC); AK (actinic keratosis) Start: 10-24-2022 Refill Evans Whittaker MD Work Phone: [facility] [place] Comment on above: Refill Request (SEE RX NOTES) Start: 08-21-2022 End: 08-21-2022 Patient encounter procedure Shaneka Friend MD Work Phone: [facility] Comment on above: Parkinson's disease (HCC) (Primary Dx); Camptocormia Start: 05-12-2022 Refill Evans Whittaker MD Work Phone: [facility] [place] Comment on above: Refill Request Start: 01-06-2022 Refill Evans Whittaker MD Work Phone: [facility] [place] Comment on above: Refill Request Procedures Date Procedure Procedure Detail Performing Clinician Start: 07-26-2024 Diagnostic mammograp hy computer-aided detcj uni Boby C Finelli DO Work Phone: Start: 07-26-2024 Perq breast loc lino ce placemt 1st lesio us imag Boby C Finelli DO Work Phone: Start: 07-26-2024 Biopsy muscle percut aneous needle Boby C Finelli DO Work Phone: Start: 07-20-2024 Us lmtd joint/oth no nvasc xtr strux r-t w/img Boby C Finelli DO Work Phone: Start: 06-01-2024 Us breast uni real t bentley with image limited Evans Whittaker MD Work Phone: Start: 06-01-2024 Digital breast tomosynthesis bilateral Evans Whittaker MD Work Phone: Start: 09-28-2023 Radex spine thoracic 3 views Evans Whittaker MD Work Phone: Start: 09-21-2023 Radex ribs uni w/posteroant ch minimum 3 views Skip Lawler [employer]OWN WHEEL ASSEMBLER.RAMP BOSS Work Phone: Start: 01-06-2023 Urnls dip stick/tabl et rgnt auto w/o microscopy Saeed Davis PA-C Work Phone: Start: 12-18-2022 CRYOTHERAPY SKIN LESION Lianna Ajay CROWN WHEEL ASSEMBLER.RAMP BOSS Work Phone: Start: 12-01-2022 Urnls dip stick/tabl et rgnt auto w/o microscopy Skip Lawler CROWN WHEEL ASSEMBLER.RAMP BOSS Work Phone: Start: 12-01-2021 Adult depression scr eening assessment Evans Whittaker MD Work Phone: Start: 10-18-2021 Colonoscopy Gerson Whittaker MD Work Phone: Plan of Treatment Date Care Activity Detail Author Start: 05-31-2031 Urine microalbumin profile [facility] Start: 05-10-2027 Diabetes Screening Diabetes Screenin [facility] Start: 11-10-2026 [facility] Start: 05-31-2026 LIPID SCREEN LIPID SCREEN [facility] Start: 10-28-2025 DIABETES SCREEN DIABETES SCREEN [facility] Start: 10-28-2025 Diabetes Screening Diabetes Screenin g [facility] Start: 05-10-2025 Covid-19 Vaccine () Covid-19 Vaccine () [facility] Comment on above: Postponed from 11/02 (Declined at this time) Start: 01-04-2025 End: 01-04-2025 Patient encounter procedure 01/04/2025 1:00 PM EDT Office Visit [facility] [address] [place], [place] [id number] Shaneka Friend MD [address] [place] [address] Follow up [facility] Comment on above: Follow up Start: 11-28-2024 End: 11-28-2024 Patient encounter procedure 11/28/2024 11:30 AM EST Office Visit [employer] [facility] [address] [place] [address] Ale Campa, [place] [address] [place] [address] Invasive ductal carcinoma of breast, right (HCC) [C50.911] [employer] Comment on above: Invasive ductal carc inoma of breast, right (HCC) [C50.911] Start: 11-10-2024 End: 11-10-2024 Patient encounter procedure 11/10/2024 2:00 PM EST Office Visit [facility] [place] [address] [place], [place] [address] Evans Whittaker MD [address] [place], [place] [phone] 6 month 40 min follow up-per provider [facility] Comment on above: 6 month 40 min follo w up-per provider Start: 10-18-2024 Colonoscopy COLONOSCOPY [facility] Start: 10-18-2024 COLORECTAL CANCER SCREENING COLORECTAL CANCER SCREENING [facility] Start: 09-14-2024 End: 09-14-2024 Patient encounter procedure 09/14/2024 1:00 PM EST Office Visit Radiation Oncology [address] [place], [place] [id number] Sandy Izaguirre MD [address] [place] [address] 7 WK FOLLOW UP Rad[facility]cology Comment on above: 7 WK FOLLOW UP Start: 08-16-2024 Covid-19 Vaccine () Covid-19 Vaccine () [facility] Start: 08-16-2024 Covid-19 Vaccine () Covid-19 Vaccine () [facility] Start: 08-10-2024 End: 08-10-2024 Patient encounter procedure 08/10/2024 11:00 AM EDT Office Visit General [facility] [address] [facility] [address] [place], [place] [address] Boby Romano DO [address] [place] [address] us br bx post op 07/26 [facility] Comment on above: us br bx post op [facility] Start: 07-27-2024 End: 07-27-2024 ambulatory Hematology/Oncology Comment on above: INDUSTRIAL PHOTOGRAPHER/INVASIVE DUCTAL C ARCINOMA OF BREAT, RT(HCC) [C50.911]/ REF BY BOBY ROMANO DO* INDUSTRIAL PHOTOGRAPHER/INVASIVE DUCTAL C ARCINOMA OF BREAT, RT(HCC) [C50.911]/ REF BY BOBY ROMANO DO* - this date per provider/patient Start: 07-27-2024 End: 07-27-2024 Patient encounter procedure 07/27/2024 1:30 PM EDT Office Visit Radiation Oncology [address] [place], [place] [address] Sandy Izaguirre MD [address] [facility] [place] [place] [phone] INDUSTRIAL PHOTOGRAPHER/INVASIVE DUCTAL CARCINOMA OF BREAT, RT(HCC) [C50.911]/ REF BY BOBY ROMANO DO* Radiation Oncology Comment on above: INDUSTRIAL PHOTOGRAPHER/INVASIVE DUCTAL C ARCINOMA OF BREAT, RT(HCC) [C50.911]/ REF BY BOBY ROMANO DO* Start: 07-27-2024 End: 07-27-2024 Patient encounter procedure 07/27/2024 10:30 AM EDT Office Visit Radiation Oncology [address] [place], [place] [phone] Sandy Izaguirre MD [address] [place] [address] INDUSTRIAL PHOTOGRAPHER/INVASIVE DUCTAL CARCINOMA OF BREAT, RT(HCC) [C50.911]/ REF BY BOBY ROMANO DO* - this date per provider/patient Radiation Oncology Comment on above: INDUSTRIAL PHOTOGRAPHER/INVASIVE DUCTAL C ARCINOMA OF BREAT, RT(HCC) [C50.911]/ REF BY BOBY ROMANO DO* - this date per provider/patient Start: 07-20-2024 End: 07-20-2024 Patient encounter procedure General Surgery Comment on above: discuss surgery discuss surgery afte r tumor board recommendation, s/p excisional biopsy of right breast lesion; pathology reported invasive ductal carcinoma, ER+SC+ HER2-. bjs Start: 07-20-2024 End: 07-20-2024 Patient encounter procedure 07/20/2024 11:30 AM EDT Appointment Radiology [address] [facility] [place], [place] [phone] Invasive ductal carcinoma of breast, right (HCC) [C50.911] Radiology Comment on above: Invasive ductal carc inoma of breast, right (HCC) [C50.911] Start: 07-06-2024 End: 07-06-2024 Patient encounter procedure 07/06/2024 1:30 PM EDT Office Visit [facility] [address] [place] [address] Shaneka Friend MD [address] [place] [address] Parkinson's disease without dyskinesia or fluctuating manifestations (HCC) [G20.A1] [facility] Comment on above: Parkinson's disease without dyskinesia or fluctuating manifestations (HCC) [G20.A1] Start: 07-06-2024 End: 07-06-2024 Patient encounter procedure 07/06/2024 10:30 AM EDT Office Visit General Surgery [address] [facility] [place], [place] [phone] Boby Romano DO [address], [place] [phone] f/u right breast biopsy General Surgery Comment on above: f/u right breast bio psy Start: 07-04-2024 End: 07-04-2024 Patient encounter procedure 07/04/2024 2:15 PM EDT Office Visit General Surgery [address] [place], [place] [phone] Seda Meadows MD [address] [place] [phone] CHECK INCISION General Surgery Comment on above: CHECK INCISION Start: 06-27-2024 End: 06-27-2024 Patient encounter procedure 06/27/2024 9:30 AM EDT Office Visit General Surgery [address] [place], [place] [phone] Seda Meadows MD [address] [place] [phone] Excisional right breast biopsy General Surgery Comment on above: Excisional right moon ast biopsy Start: 06-12-2024 Influenza vaccination Influenza Vacc ine (#1) [facility] Start: 06-06-2024 End: 06-06-2024 Patient encounter procedure 06/06/2024 8:45 AM EDT Office Visit General Surgery [address] [place], [place] [phone] Seda Meadows MD [address] [place] [phone] breast consult General Surgery Comment on above: breast consult Start: 06-01-2024 End: 06-01-2024 Patient encounter procedure 06/01/2024 10:00 AM EDT Appointment Mammogram [address] [place], [place] [id number] Comp- Breast mass in male [N63.0] Mammogram Comment on above: Comp- Breast mass in male [N63.0] Start: 05-10-2024 End: 08-09-2024 TESTOSTERONE, FREE AND TOTAL [facility] Comment on above: Expected: 05/10/2024 , Expires: 08/09/2024 Start: 09-16-2023 Hepatitis a & b vacc ine hepa-hepb adult im HEP A-HEP B VACCINE (TWINRIX) Immunization/Injection Routine Travel advice encounter Expected: 09/16/2023 [facility] Work Phone: Comment on above: Expected: 09/16/2023 Start: 06-12-2023 Influenza vaccination INFLUENZA (#1) [facility] Start: 05-15-2023 DIABETES SCREEN DIABETES SCREEN [facility] Start: 04-16-2023 Hepatitis a & b vacc ine hepa-hepb adult im HEP A-HEP B VACCINE (TWINRIX) Immunization/Injection Routine Travel advice encounter Expected: 04/16/2023 [facility] Work Phone: Comment on above: Expected: 04/16/2023 Start: 02-24-2023 SHINGRIX VACCINE (2 of 2) SHINGRIX VACCINE (2 of 2) [facility] Start: 12-01-2022 Adult depression screening assessment DEPRESSION SCREENING [facility] Start: 10-28-2022 End: 12-28-2022 Comprehensive metabolic 2000 panel - Serum or Plasma [facility] Work Phone: Comment on above: Expected: 10/28/2022 , Expires: 12/28/2022 Start: 10-28-2022 End: 12-28-2022 Lipid 1996 panel - Serum or Plasma [facility] Work Phone: Comment on above: Expected: 10/28/2022 , Expires: 12/28/2022 Start: 10-12-2022 ADVANCE DIRECTIVE DISCUSSION ADVANCE DIRECTIVE DISCUSSION [facility] Start: 10-12-2022 DEPRESSION ASSESSMENT DEPRESSION ASS ESSMENT [facility] Start: 06-12-2022 Influenza vaccination INFLUENZA (#1) [facility] Start: 03-06-2022 COVID-19 VACCINE (5 - Booster for Moderna series) COVID-19 VACCINE (5 - Booster for Moderna series) [facility] Start: 12-11-2021 COVID-19 VACCINE (4 - Booster for Moderna series) COVID-19 VACCINE (4 - Booster for Moderna series) [facility] Start: 10-12-2021 ADVANCE DIRECTIVE DISCUSSION ADVANCE DIRECTIVE DISCUSSION [facility] Start: 10-12-2021 DEPRESSION ASSESSMENT DEPRESSION ASS ESSMENT [facility] Start: 01-22-1996 SHINGRIX VACCINE (1 of 2) SHINGRIX VACCINE (1 of 2) [facility] Start: 1991 COLOGUARD (FIT-DNA) COLOGUARD (FIT-D NA) [facility] Start: [address] COLONOGRAPHY [facility] Start: 1991 FECAL OCCULT BLOOD FECAL OCCULT BLOO D [facility] Start: 1991 [facility] Start: 01-22-1964 Depression Screening Depression Scre ening [facility] Bacteria identified in Urine by Culture URINE CULTURE Microbiology Routine Painful urination 12/01/2022 10:44 AM DNA13 [facility] Work Phone: Guidance for biopsy of Lymph node IMAGING GUIDED BIOPSY INGUINAL/AXILLARY LYMPH NODE Radiology Routine Invasive ductal carcinoma of right breast (HCC) Ordered: 07/20/2024 [facility] Work Phone: Comment on above: Ordered: 07/20/2024 Influenza virus A an d B RNA and SARS-CoV-2 (COVID-19) N gene panel - Respiratory specimen by LUC with probe detection COVID WITH FLUA+B, ROUTINE Microbiology Routine URI, acute 12/01/2022 10:43 AM DNA13 [facility] Work Phone: End: 06-09-2025 MG Breast - right Diagnostic for implant VIOLETTA DIAGNOSTIC RIGHT Radiology STAT Breast mass in male Disorder of breast, unspecified 1 Occurrences starting 05/10/2024 until 06/09/2025 [facility] Comment on above: 1 Occurrences starti ng 05/10/2024 until 06/09/2025 POST VOID RESIDUAL POST VOID RES IDUAL Procedures Routine Frequent urination Ordered: 01/06/2023 [facility] Work Phone: Comment on above: Ordered: 01/06/2023 End: 10-27-2024 Radex spine thoracic 3 views XR THORACIC GENERAL 3V AP/LAT/SWIMMERS Radiology Routine Upper back pain on left side 1 Occurrences starting 09/28/2023 until 10/27/2024 [facility] Work Phone: Comment on above: 1 Occurrences starti ng 09/28/2023 until 10/27/2024 Radex spine thoracic 3 views XR THORACIC GENERAL 3V AP/LAT/SWIMMERS Radiology Routine Upper back pain on left side 09/28/2023 4:51 PM EST [facility] Work Phone: SURGICAL PATHOLOGY SURGICAL PATH OLOGY Lab Routine Abnormal ultrasound 06/27/2024 9:36 AM EDT [facility] Work Phone: End: 07-26-2024 SURGICAL PATHOLOGY [facility] Work Phone: Comment on above: ONCE for 1 Occurrenc es starting 07/26/2024 until 07/26/2024, 1 completed Urinalysis complete panel - Urine URINALYSIS, WITH MICROSCOPIC Lab Routine Bilirubinuria 12/01/2022 11:16 AM EST [facility] Work Phone: End: 08-05-2025 US Axilla - right US AXILLA ONLY RIGHT Radiology Routine Invasive ductal carcinoma of breast, right (HCC) 1 Occurrences starting 07/06/2024 until 08/05/2025 [facility] Work Phone: Comment on above: 1 Occurrences starti ng 07/06/2024 until 08/05/2025 End: 06-09-2025 US Breast - right limited US BREAST LTD RIGHT Radiology STAT Breast mass in male Disorder of breast, unspecified 1 Occurrences starting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 Service: ? Author Type: Physician Type: Progress Notes Filed: 07/18/2024 22:52 Note Text: [facility] - FOLLOW UP EVALUATION Evans Whittaker MD [id number] [facility] [id number] Dear Evans Whittaker MD: I had the pleasure of seeing Mr. Quevedo for follow-up today. As you know he is a 79 year old right-handed male with a history of PD since 2019. 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 Not currently Interval History: The patient has been newly diagnosed with breast cancer and is experiencing a gradual deterioration of his Parkinson's disease. Compared to the last visit, his tremor has worsened, with some postural tremor, particularly noticeable while eating. Despite these symptoms, the patient continues to engage in physical exercise, including treadmill walking and strength training. However, he reports that his walking is deteriorating, and he has become more cautious due to a fear of falling, although no falls or freezing of gait have occurred recently. Cognitively, the patient is experiencing some short-term memory issues. His sleep is disrupted three times a week, primarily by talking in his sleep, though his mood remains stable. He reports no hallucinations. Movement Disorders Medications Schedule - as of the start of the visit: Medications 8AM 1PM 4:30 PM carbidopa/ levodopa 25 mg/ 100 mg 2 1.5 1.5 Lexapro 10 mg 1 Parkinson's Motor Complications Medication benefit onset: unclear Medication duration: unclear Wearing off: no Painful off-state dystonia: no Dyskinesia: no Prior Anti-Parkinson Therapies none Questionnaires: Mood/Behavior Depression: PHQ-9 Score: 2 usually representing no significant (0-4) depression. Anxiety: Finally, the following table shows the patient's overall global physical and mental health using the PROMIS scale: PROMIS-10 Flowsheet Row Office Visit from 05/10/2024 in [facility] Visit from 11/10/2023 in [facility] Global Physical Health T Score 50.8 50.8 Global Mental Health T Score 62.5 62.5 0-10 Standard Pain Scale 4 4 *PROMIS-10 scoring scale: mean = 50, over 50 is above average, under 50 is below average ALLERGIES No Known Allergies Current Outpatient Medications Medication Sig atorvastatin (LIPITOR) 20 mg tablet Take 1 tablet by mouth daily at bedtime. escitalopram oxalate (LEXAPRO) 10 mg tablet Take 1 tablet by mouth once daily. carbidopa-levodopa (SINEMET) 25-100 mg per tablet Take 2 tablets in the morning, 1.5 tablets at noon, 1.5 tablets in the evening tamsulosin (FLOMAX) 0.4 mg Take 1 capsule by mouth once daily. calcium carbonate (CALCIUM 500 ORAL) Take by mouth once daily. ascorbic acid (VITAMIN C ORAL) Take by mouth once daily. Cholecalciferol, Vitamin D3, 25 mcg (1,000 unit) cap Take 1,000 Units by mouth once daily. multivitamin tablet Take 1 tablet by mouth once daily. No current facility-administered medications for this visit. Objective Vital Signs: SpO2 97% Orthostatic Vitals: Sitting: BP 143/84 Pulse 77 Standing: BP 127/79 Pulse 87 No LMP for male patient. There is no height or weight on file to calculate BMI. General Neurological Examination: Neurological Exam Mental Status Awake, alert and oriented to person, place and time. Recent and remote memory are intact. Speech is normal. Language is fluent with no aphasia. Attention and concentration are normal. Fund of knowledge is appropriate for level of education. Cranial Nerves CN II: Visual acuity is normal. Visual casiano full to confrontation. Right funduscopic exam: disc intact. Left funduscopic exam: disc intact. CN III, IV, : Extraocular movements intact bilaterally. Normal lids and orbits bilaterally. Pupils equal round and reactive to light bilaterally. CN V: Facial sensation is normal. CN VII: Full and symmetric facial movement. CN VIII: Hearing is normal. CN IX, X: Palate elevates symmetrically. Normal gag reflex. CN XI: Shoulder shrug strength is normal. CN XII: Tongue midline without atrophy or fasciculations. Motor Normal muscle bulk throughout. Normal muscle tone. No abnormal involuntary movements. Strength is 5/5 throughout all four extremities. Sensory Sensation is intact to light touch, pinprick, vibration and proprioception in all four extremities. Reflexes Right Left Brachioradialis 2+ 2+ Biceps 2+ 2+ Triceps 2+ 2+ Patellar 2+ 2+ Achilles 2+ 2+ Right Plantar: downgoing Left Plantar: downgoing Coordination Elyjmi-if-nclu, rapid alternating movements and yujl-ff-aotw normal bilaterally without dysmetria. Gait Casual gait is alejandrina (more content not included)... [facility] 07-06-2024 History of Present illness Narrative [facility] - FOLLOW UP EVALUATION Evans Whittaker MD [id number] [facility] [id number] Dear Evans Whittaker MD: I had the pleasure of seeing Mr. Quevedo for follow-up today. As you know he is a 79 year old right-handed male with a history of PD since 2019. 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 Not currently Interval History: The patient has been newly diagnosed with breast cancer and is experiencing a gradual deterioration of his Parkinson's disease. Compared to the last visit, his tremor has worsened, with some postural tremor, particularly noticeable while eating. Despite these symptoms, the patient continues to engage in physical exercise, including treadmill walking and strength training. However, he reports that his walking is deteriorating, and he has become more cautious due to a fear of falling, although no falls or freezing of gait have occurred recently. Cognitively, the patient is experiencing some short-term memory issues. His sleep is disrupted three times a week, primarily by talking in his sleep, though his mood remains stable. He reports no hallucinations. Movement Disorders Medications Schedule - as of the start of the visit: Medications 8AM 1PM 4:30 PM carbidopa/ levodopa 25 mg/ 100 mg 2 1.5 1.5 Lexapro 10 mg 1 Parkinson's Motor Complications Medication benefit onset: unclear Medication duration: unclear Wearing off: no Painful off-state dystonia: no Dyskinesia: no Prior Anti-Parkinson Therapies none Questionnaires: Mood/Behavior Depression: PHQ-9 Score: 2 usually representing no significant (0-4) depression. Anxiety: Finally, the following table shows the patient's overall global physical and mental health using the PROMIS scale: PROMIS-10 Flowsheet Row Office Visit from 05/10/2024 in [facility] Office Visit from 11/10/2023 in [facility] Global Physical Health T Score 50.8 50.8 Global Mental Health T Score 62.5 62.5 0-10 Standard Pain Scale 4 4 *PROMIS-10 scoring scale: mean = 50, over 50 is above average, under 50 is below average ALLERGIES No Known Allergies Current Outpatient Medications Medication Sig atorvastatin (LIPITOR) 20 mg tablet Take 1 tablet by mouth daily at bedtime. escitalopram oxalate (LEXAPRO) 10 mg tablet Take 1 tablet by mouth once daily. carbidopa-levodopa (SINEMET) 25-100 mg per tablet Take 2 tablets in the morning, 1.5 tablets at noon, 1.5 tablets in the evening tamsulosin (FLOMAX) 0.4 mg Take 1 capsule by mouth once daily. calcium carbonate (CALCIUM 500 ORAL) Take by mouth once daily. ascorbic acid (VITAMIN C ORAL) Take by mouth once daily. Cholecalciferol, Vitamin D3, 25 mcg (1,000 unit) cap Take 1,000 Units by mouth once daily. multivitamin tablet Take 1 tablet by mouth once daily. No current facility-administered medications for this visit. Objective Vital Signs: SpO2 97% Orthostatic Vitals: Sitting: BP 143/84 Pulse 77 Standing: BP 127/79 Pulse 87 No LMP for male patient. There is no height or weight on file to calculate BMI. General Neurological Examination: Neurological Exam Mental Status Awake, alert and oriented to person, place and time. Recent and remote memory are intact. Speech is normal. Language is fluent with no aphasia. Attention and concentration are normal. Fund of knowledge is appropriate for level of education. Cranial Nerves CN II: Visual acuity is normal. Visual casiano full to confrontation. Right funduscopic exam: disc intact. Left funduscopic exam: disc intact. CN III, IV, : Extraocular movements intact bilaterally. Normal lids and orbits bilaterally. Pupils equal round and reactive to light bilaterally. CN V: Facial sensation is normal. CN VII: Full and symmetric facial movement. CN VIII: Hearing is normal. CN IX, X: Palate elevates symmetrically. Normal gag reflex. CN XI: Shoulder shrug strength is normal. CN XII: Tongue midline without atrophy or fasciculations. Motor Normal muscle bulk throughout. Normal muscle tone. No abnormal involuntary movements. Strength is 5/5 throughout all four extremities. Sensory Sensation is intact to light touch, pinprick, vibration and proprioception in all four extremities. Reflexes Right Left Brachioradialis 2+ 2+ Biceps 2+ 2+ Triceps 2+ 2+ Patellar 2+ 2+ Achilles 2+ 2+ Right Plantar: downgoing Left Plantar: downgoing Coordination Ypgbtb-fz-uwqf, rapid alternating movements and hsoz-cq-htrj normal bilaterally without dysmetria. Gait Casual gait is normal including stance, stride, and arm swing. Romberg is absent. Movement Disorders Cognitive and Motor Biomeasures: Processing Speed Test Total Number Correct:31; Z Score: -0.14 Visual Memory Test Raw Score: 48; Z Score: 0.69 Manual Dexterity Test (max = 180 secs) Dominant Hand Time: 41.14; Non-Dominant Hand Time: 36.33; Dominant Hand Percentile ; Non-Dominant Hand Percentile: Walking Speed Test (25 foot walk): Time: ; Z Score: *Percentile interpretation: Higher is better. A score < 50 would be worse than predicted, around 50 would be near predicted and > 50 would be better than predicted. Z score interpretation: higher than -1.5 is within normal; -1.5 to -2.0 represents mild impairment; lower than -2.0 represents significant impairment Movement Disorders Scales Performed: MDS-UPDRS Motor subscale condition of exam Medication Off/On/Naiive ON Time of UPDRS 1353 Time of Last Medication 1300 Last Medication Taken sinemet 2 tab DBS Right N/A DBS Left N/A MDS-UPDRS Motor subscale scores Speech 1-Slight. Loss of modulation, diction or volume, but still all words easy to understand. Facial Expression 1-Slight. Minimal masked facies manifested only by decreased frequency of blinking. Rigidity Neck 0-Normal. No rigidity. Rigidity Right Upper Extremity 1-Slight. Rigidity only detected with activation maneuver. Rigidity Left Upper Extremity 1-Slight. Rigidity only detected with activation maneuver. Rigidity Right Lower Extremity 0-Normal. No rigidity. Rigidity Left Lower Extremity 0-Normal. No rigidity. Finger Taps Right 1-Slight. a) the regular rhythm is broken with one or two interruptions or hesitations of the tapping movement, b) slight slowing, c) the amplitude decrements near the end of the 10 taps. Finger Taps Left 1-Slight. a) the regular rhythm is broken with one or two interruptions or hesitations of the tapping movement, b) slight slowing, c) the amplitude decrements near the end of the 10 taps. Hand Movements Right 0-Normal. No problem. Hand Movements Left 1-Slight. a) the regular rhythm is broken with one or two interruptions or hesitations of the movement, b) slight slowing, c) the amplitude decrements near the end of the task. Arm Movements Right 1-Slight. a) the regular rhythm is broken with one or two interruptions or hesitations of the movement, b) slight slowing, c) the amplitude decrements near the end of the sequence. Arm Movements Left 1-Slight. a) the regular rhythm is broken with one or two interruptions or hesitations of the movement, b) slight slowing, c) the amplitude decrements near the end of the sequence. Toe Taps Right 1-Slight. a) the regular rhythm is broken with one or two interruptions or hesitations of the tapping movement, b) slight slowing, c) the amplitude decrements near the end of the ten taps. Toe Taps Left 1-Slight. a) the regular rhythm is broken with one or two interruptions or hesitations of the tapping movement, b) slight slowing, c) the amplitude decrements near the end of the ten taps. Leg Agility Right 0-Normal. No problems. Leg Agility Left 1-Slight. a) the regular rhythm is broken with one or two interruptions or hesitations of the movement, b) slight slowing, c) the amplitude decrements near the end of the task. Arise From Chair 0-Normal. No problems. Able to arise quickly without hesitation. Gait 1-Slight. Independent walking with minor gait impairment. Gait Freezing 0-Normal. No freezing. Posture Stability 0-Normal. No problems: recovers with one or two steps. Posture 1-Slight. Not quite erect, but posture could be normal for older person. Body Bradykinesia 0-Normal. No problems. Postural Tremor Hand Right 1-Slight. Tremor is present but less than 1cm in amplitude. Postural Tremor Hand Left 0-Normal. No tremor. Kinetic Tremor Right 0-Normal. No tremor. Kinetic Tremor Left 0-Normal. No tremor. Rest Tremor Amplitude Right Upper Extremity 0-Normal. No tremor. Rest Tremor Amplitude Left Upper Extremity 1-Slight. < 1 cm in maximal amplitude. Rest Tremor Amplitude Right Lower Extremity 0-Normal. No tremor. Rest Tremor Amplitude Left Lower Extremity 0-Normal. No tremor. Rest Tremor Amplitude Lip/Jaw 0-Normal. No tremor. Rest Tremor Constancy 1-Slight. Tremor at rest is present < 25% of the entire examination period. MDS-UPDRS Motor subscale totals Left Total 7 Right Total 5 Midline Total 4 Tremor Total / 10 3 PIGD Total / 3 1 Overall Total 17 % Change Compared to Last Filed Total -26.08 Assessment and Plan: Assessment Mr. 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 He has done very well with sinemet. He does have some minor word finding difficulty, but is not enough to bother him at this time and cognitive screening tests from our waiting room have been normal. The following are the current problems noted and addressed during this visit: Parkinson's disease without dyskinesia or fluctuating manifestations (hcc) Word finding difficulty (primary encounter diagnosis) Plan 07/06/2024 Visit: Parkinson's Disease - We are going to increase the Sinemet to 2 tablets three times a day. monitor word finding difficulty Follow up - Schedule a follow up in 3 months. Exercise - We encourage you to continue exercise. At least 30 minute a day, 5 times a week (treadmill, Static bike) Some medications are prohibited for you in the context of PD ( Haldol - Haloperidol, metoclopramide) We recommend you to avoid this type of medications. Updated Movement Disorders Medication Schedule: Medications 8AM 1PM 4:30 PM carbidopa/ levodopa 25 mg/ 100 mg 2 2 2 Lexapro 10 mg 1 Return at or around: 01/03/25 Level of service : 38772 ( 30-39 min). Time spent 35 min on the day of service, which included preparing to see the patient, jhlg-[id number]-[id number] patient care, completing clinical documentation, obtaining and/or reviewing separately obtained history, performing a medically appropriate examination, counseling and educating the patient/family/caregiver, and ordering medications, tests, or procedures. Thank you for allowing me to be part of the clinical care of this patient! I look forward to continued participation in the patient s care with you. Please do not hesitate to call with any questions. Sincerely, Shaneka Friend MD documented in this encounter [facility] 07-06-2024 Telephone encounter Note Patient was seen by Boby Romano DO today and then stopped after appointment to schedule. Scheduled with Dr. Cabrera and Dr. Izaguirre on 07/27. Isadora Sue [facility] 07-06-2024 Miscellaneous Notes Patient was seen by Boby Romano DO today and then stopped after appointment to schedule. Scheduled with Dr. Cabrera and Dr. Izaguirre on 07/27. Isadora Sue documented in this encounter [facility] 07-06-2024 Note HNO ID: [id number] Author: BOBY ROMANO DO Service: ? Author Type: Physician Type: Progress Notes Filed: 07/13/2024 14:13 Note Text: General Surgery New Patient REASON FOR VISIT Claudia Quevedo is a 79 year old male who is scheduled for a consult at the request of Dr. Seda Meadows for Follow Up (Schedule surgery, follow up right breast biopsy ). My final recommendations will be communicated back to the requesting physician by the way of the shared medical record, fax, or via US Mail History of Present Illness: Claudia Quevedo is a 79 year old male with contributing past medical and surgical history significant for Parkinson's disease, HLD, mild cognitive impairment, enlarged prostate, and post-polio muscle weakness. 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 He was initially seen in clinic by Dr. Meadows on 06/06/2024 for palpable right breast mass with abnormal mammogram. US right breast 06/01/2024 The 1.2 cm x 0.9 cm x 1.1 cm lobulated mass in the right breast is suspicious of malignancy. An ultrasound guided biopsy is recommended. Mammogram 06/01/2024 IMPRESSION: SUSPICIOUS The 1.2 cm x 0.9 cm x 1.1 cm lobulated mass in the right breast is suspicious of malignancy. An ultrasound guided biopsy is recommended. Negative right axillary ultrasound. He returned to clinic on 06/27/2024 for excisional biopsy. Lesion measured 0.8cm in size. FINAL DIAGNOSIS A. 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 ---The surgical margin is positive for invasive carcinoma. ---Please see comment. Diagnosis Comment Immunoperoxidase studies for estrogen receptor (ER), progesterone receptor (SC), and HER2 are pending, the results of which will be reported in a linked document. Gross Description A. Breast, Right, Excision of Lesion Received in formalin, labeled right breast is an unoriented, irregular fragment of yellow-pace brown fibrofatty breast tissue measuring 1.4 x 1.3 x 0.8 cm and weighing 0.7 g. The outer surface is inked entirely black. Sectioning reveals a pace-white, firm, well-circumscribed nodule measuring 1 x 0.7 x 0.7 cm. The specimen is submitted entirely in A1. KSZ June 28, 2024 1:01 PM Gross examination performed at [facility], [facility], [place] [address] Component ER status Positive (greater than 10%) ER % staining 99 Estrogen Receptor (Staining Intensity) Strong Estrogen Receptor Internal Control Present and Stained as Expected Estrogen Receptor External Control Present and Stained as Expected SC status Positive (greater than or equal to 1%) SC % staining 99 Progesterone Receptor (Staining Intensity) Strong Progesterone Receptor Internal Control Present and Stained as Expected Progesterone Receptor External Control Present and Stained as Expected HER2 IHC Status Negative for HER2 Overexpression HER2 IHC Score 1+ Tumor Type Primary Invasive Breast Carcinoma Breast Tumor Grade Grade 1 [facility] Block ID [id number] Fixative Formalin, 10% Neutral Buffered Cold Ischemia Time Not Provided Total Fixation Time Not Provided Latest ASCP/CAP guidelines for fixation met Indeterminate (See Comment) Was Specimen Decalcified No Interpretation Comment and Reference Range Reference Range for Hormone Receptors: Staining for SC of greater than or equal to 1% of the tumor cells is considered positive. Staining for ER of 1-10% of the tumor cells is considered low positive. Staining for ER of greater than 10% of the tumor cells is considered positive. Staining for ER or SC of less than 1% is considered negative. Reference Ranges for HER2 Immunohistochemistry: Positive (3+): Complete, intense circumferential membrane staining in greater than 10% of tumor cells. Equivocal (2+): Weak to moderate complete membrane staining observed in greater than 10% of tumor cells. Negative (1+): Incomplete, faint membrane staining in greater than 10% of tumor cells. Negative (0): No staining or incomplete faint membrane staining in less than or equal to 10% of tumor cells. Interpretation Comments: Consideration of follow-up testing for HER2 (ERBB2) status by fluorescence in situ hybridization (FISH) for all equivocal (2+) results is recommended and will be ordered as a reflex test if FISH was not a testing methodology already employed. Note for ER low results. For malignancy with a low level (1%-10%) of ER expression by immunohistochemistry, there are limited data on the overall benefit of endocrine therapies for a patient with low level (1%-10%) ER expression, but (more content not included)... [facility] 07-06-2024 History of Present illness Narrative Images from the original note were not included. General Surgery New Patient REASON FOR VISIT Claudia Quevedo is a 79 year old male who is scheduled for a consult at the request of Dr. Seda Meadows for Follow Up (Schedule surgery, follow up right breast biopsy ). My final recommendations will be communicated back to the requesting physician by the way of the shared medical record, fax, or via US Mail History of Present Illness: Claudia Quevedo is a 79 year old male with contributing past medical and surgical history significant for Parkinson's disease, HLD, mild cognitive impairment, enlarged prostate, and post-polio muscle weakness. 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 He was initially seen in clinic by Dr. Meadows on 06/06/2024 for palpable right breast mass with abnormal mammogram. US right breast 06/01/2024 The 1.2 cm x 0.9 cm x 1.1 cm lobulated mass in the right breast is suspicious of malignancy. An ultrasound guided biopsy is recommended. Mammogram 06/01/2024 IMPRESSION: SUSPICIOUS The 1.2 cm x 0.9 cm x 1.1 cm lobulated mass in the right breast is suspicious of malignancy. An ultrasound guided biopsy is recommended. Negative right axillary ultrasound. He returned to clinic on 06/27/2024 for excisional biopsy. Lesion measured 0.8cm in size. FINAL DIAGNOSIS A. 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 ---The surgical margin is positive for invasive carcinoma. ---Please see comment. Diagnosis Comment Immunoperoxidase studies for estrogen receptor (ER), progesterone receptor (SC), and HER2 are pending, the results of which will be reported in a linked document. Gross Description A. Breast, Right, Excision of Lesion Received in formalin, labeled right breast is an unoriented, irregular fragment of yellow-pace brown fibrofatty breast tissue measuring 1.4 x 1.3 x 0.8 cm and weighing 0.7 g. The outer surface is inked entirely black. Sectioning reveals a pace-white, firm, well-circumscribed nodule measuring 1 x 0.7 x 0.7 cm. The specimen is submitted entirely in A1. KSZ June 28, 2024 1:01 PM Gross examination performed at [facility], [address] [place] [address] Component ER status Positive (greater than 10%) ER % staining 99 Estrogen Receptor (Staining Intensity) Strong Estrogen Receptor Internal Control Present and Stained as Expected Estrogen Receptor External Control Present and Stained as Expected SC status Positive (greater than or equal to 1%) SC % staining 99 Progesterone Receptor (Staining Intensity) Strong Progesterone Receptor Internal Control Present and Stained as Expected Progesterone Receptor External Control Present and Stained as Expected HER2 IHC Status Negative for HER2 Overexpression HER2 IHC Score 1+ Tumor Type Primary Invasive Breast Carcinoma Breast Tumor Grade Grade 1 [facility] Block ID A1 Fixative Formalin, 10% Neutral Buffered Cold Ischemia Time Not Provided Total Fixation Time Not Provided Latest ASCP/CAP guidelines for fixation met Indeterminate (See Comment) Was Specimen Decalcified No Interpretation Comment and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 &/TRANSPOS MEDIAN NRV CARPAL TUNNE Right 05/26/2014 Carpal tunnel decomp PAST SURGICAL HISTORY OF 05/26/2014 right cubital tunnel release PAST SURGICAL HISTORY OF ORIF right 5th finger repair post crush injury PAST SURGICAL HISTORY OF N/A 10/2017 Bowel resection in [facility] TONSILLECTOMY HX TONSILLECTOMY PRIMARY/SECONDARY <AGE 13 Tonsillectomy Family History FAMILY HISTORY Problem Relation Age of Onset Breast Cancer Mother in 90's Coronary Artery Disease Father bypass x 2 Heart Father other (ischemic strokes) Father No Known Problems Sister No Known Problems Brother No Known Problems Maternal Grandmother No Known Problems Maternal Grandfather No Known Problems Paternal Grandmother No Known Problems Paternal Grandfather No Known Problems Brother No Known Problems Daughter No Known Problems Son No Known Problems Son No Known Problems Son Patient Allergies ALLERGIES No Known Allergies Current Medications Current Outpatient Medications on File Prior to Visit Medication Sig atorvastatin (LIPITOR) 20 mg tablet Take 1 tablet by mouth daily at bedtime. calcium carbonate (CALCIUM 500 ORAL) Take by mouth once daily. escitalopram oxalate (LEXAPRO) 10 mg tablet Take 1 tablet by mouth once daily. carbidopa-levodopa (SINEMET) 25-100 mg per tablet Take 2 tablets in the morning, 1.5 tablets at noon, 1.5 tablets in the evening tamsulosin (FLOMAX) 0.4 mg Take 1 capsule by mouth once daily. ascorbic acid (VITAMIN C ORAL) Take by mouth once daily. Cholecalciferol, Vitamin D3, 25 mcg (1,000 unit) cap Take 1,000 Units by mouth once daily. multivitamin tablet Take 1 tablet by mouth once daily. No current facility-administered medications on file prior to visit. Social History Social History Tobacco Use Smoking status: Former Packs/day: 0.50 Years: 5.00 Pack years: 2.50 Types: Cigarettes Quit date: 06/27/1969 Years since quittin.7 Smokeless tobacco: Former Types: Chew Quit date: 05/04/2008 Tobacco comments: Using nicotine lozenges 4 mg 5-6 times daily Vaping Use Vaping Use: Never used Substance Use Topics Alcohol use: Yes Alcohol/week: 35.0 standard drinks Types: 14 Glasses of Wine (5oz) per week Comment: nightly-sometimes beer or mixed drink Drug use: Not Currently Comment: marijuana 3 times in his life Review of Symptoms REVIEW OF SYSTEMS GENERAL: No weight loss, malaise or fevers RESPIRATORY: Negative for cough, hemoptysis, wheezing, COPD, dyspnea or shortness of breath CARDIOVASCULAR: Negative for chest pain, leg swelling, hypertension, CHF or palpitations EXAM: BP 106/64 Pulse 83 Resp 16 Wt 85 kg (187 lb 6.4 oz) SpO2 94% BMI 26.89 kg/m General Appearance: Well appearing, alert, in no acute distress, well-hydrated, well nourished.. Skin: Skin color, texture, turgor normal, no suspicious rashes or lesions. Lungs: Lungs clear to auscultation. No wheezing, rhonchi, rales.. Heart: RRR without murmur, gallop, or rubs. No ectopy. Health Maintenance List ADVANCE DIRECTIVE DISCUSSION Never done SHINGRIX VACCINE(2 of 2) due on 02/24/2023 DIABETES SCREEN due on 10/28/2025 DTAP,TDAP,TD(2 - Td or Tdap) due on 05/31/2031 INFLUENZA Completed DEPRESSION ASSESSMENT Completed HEPATITIS C SCREENING Completed COVID-19 VACCINE Completed PNEUMOCOCCAL: 65+ Completed ASSESSMENT/PLAN: 1. Travel advice encounter - ICD9: V65.49, ICD10: Z71.84 Start Twinrix today. Rx sent for vivotif and doxycycline for malaria prophylaxis to start before his trip. Once he gets itinerary, will be able to give him more info on cholera. Should reach out to health department about letter for yellow fever vaccine. Needs to contact travel ot to see if they are going to be in close proximity to animals. If so, should get rabies vaccination before leaving. Discussed general safety tips, DEET, and CDC website for further information. . - VIVOTIF 2 BILLION UNIT CAPSULE,DELAYED RELEASE - DOXYCYCLINE HYCLATE 100 MG TABLET - HEP A-HEP B VACCINE (TWINRIX) - HEP A-HEP B VACCINE (TWINRIX) - HEP A-HEP B VACCINE (TWINRIX) I spent a total of 30 minutes on the date of the service which included preparing to see the patient, [id number] patient care, completing clinical documentation, obtaining and/or reviewing separately obtained history, performing a medically appropriate examination, counseling and educating the patient/family/caregiver, and ordering medications, tests, or procedures. Evans Whittaker MD documented in this encounter [facility] 02-11-2023 Miscellaneous Notes Pharmacy verified in [facility] Patient has been identified by name and date of : Yes Patient aware RX will be sent to pharmacy. No need to notify patient. Patient phones for refill(s): Requested Prescriptions Pending Prescriptions Disp Refills atorvastatin (LIPITOR) 20 mg tablet 90 tablet 2 Sig: Take 1 tablet by mouth daily at bedtime. Date of last office visit : 12/04/2022 Labs-10/28/22 Date of next office visit :10/28/23 Last 2 Encounter Wt Readings: Date: Wt: 01/06/2023 84.8 kg (187 lb) 01/01/2023 85.1 kg (187 lb 9.6 oz) Please advise. Dennise Herndon documented in this encounter [facility] 01-19-2023 History of Present illness Narrative Images from the original note were not included. Department of Dermatology Lianna Moss APRN.MANUEL 01/19/2023 Last visit in Dermatology: 12/18/2022 Objective/Assessment/Plan 1. Skin pain Right Cymba Skin completely unremarkable today. Per patient, skin pain is resolved. Observational course. Monitor for growth and changes. Follow-up as noted below or as needed. Lianna Moss APRN.RAMP BOSS Chief Complaint: Patient presents with: Derm Problem: Follow-up for skin pain on the right ear Subjective and Objective HPI: Claudia Quevedo is a 77 year old male who presents for: Follow-up for skin pain on the right ear Patient applied OTC ATB to site, reports improvement since COREY. Denies any pain/irritation on the ear. No associated symptoms. No other concerns today. Past medical history is reviewed. Medication list is reviewed. Physical Exam included: Right ear Intake completed by CRISTO Rodriguez APRN.RAMP BOSS documented in this encounter [facility] 01-06-2023 History of Present illness Narrative Images from the original note were not included. [facility] NEW CONSULT PATIENT CLINIC NOTE SERVICE DATE: 01/06/2023 SERVICE TIME: 2:23 PM NAME: Claudia Quevedo Consultation requested by Evans Whittaker MD for an opinion regarding Urinary frequency My final recommendations communicated back to the requesting physician by way of our shared Medical record. CHIEF COMPLAINT: Urinary frequency HISTORY OF PRESENT ILLNESS: Claudia Quevedo is a 77 year old male with PMH including Parkinsons presenting for New Patient Consult for Urinary frequency The patient reports Urinary frequency on Flomax His concern is his trip to [facility] in May 2023 we discussed the concerns of hydration and Flomax and how to mitigate the problem as best he can I discussed my concerns with trying an anticholinergic medication with likely dehydration FLUIDS: Increase while on trip urine clear and some yellow is good LUTS: DYSURIA: no URGENCY: Yes FREQUENCY:7 per day NOCTURIA: 2 per night STRAINING TO VOID: No EMPTIES COMPLETELY: Yes UTI: No GROSS HEMATURIA: no UA DIPSTICK POSITIVE ONLY: no LABS: No results found for: TESTOST No results found for: TESTFREE PSA Screening (ng/mL) Date Value 05/31/2021 0.87 08/27/2016 0.32 Hematocrit (%) Date Value 03/14/2019 47.0 05/18/2015 45.1 PSA Screening (ng/mL) Date Value 05/31/2021 0.87 08/27/2016 0.32 Creatinine Date Value Ref Range Status 10/28/2022 1.20 0.73 - 1.22 mg/dL Final 05/15/2020 1.02 0.73 - 1.22 mg/dL Final 03/14/2019 0.91 0.73 - 1.22 mg/dL Final 09/18/2017 1.19 0.73 - 1.22 mg/dL Final MEDICATIONS: calcium carbonate (CALCIUM 500 ORAL) Take by mouth once daily. escitalopram oxalate (LEXAPRO) 10 mg tablet Take 1 tablet by mouth once daily. atorvastatin (LIPITOR) 20 mg tablet Take 1 tablet by mouth daily at bedtime. carbidopa-levodopa (SINEMET) 25-100 mg per tablet Take 2 tablets in the morning, 1.5 tablets at noon, 1.5 tablets in the evening tamsulosin (FLOMAX) 0.4 mg Take 1 capsule by mouth once daily. ascorbic acid (VITAMIN C ORAL) Take by mouth once daily. Cholecalciferol, Vitamin D3, 25 mcg (1,000 unit) cap Take 1,000 Units by mouth once daily. multivitamin tablet Take 1 tablet by mouth once daily. PAST MEDICAL HISTORY: PAST MEDICAL HISTORY Diagnosis Date Anxiety BPPV (benign paroxysmal positional vertigo) 03/2021 DVT (deep venous thrombosis) ([facility]) 2019 left lower leg 2/2 surgery Enlarged prostate Hyperlipidemia Incisional hernia repair x2 with complication of SBO Parkinson's disease ([facility]) Dr. Friend Poliomyelitis had at age 11 Post-polio syndrome Rectal bleeding SBO (small bowel obstruction) ([facility]) Snoring PAST SURGICAL HISTORY: PAST SURGICAL HISTORY Procedure Laterality Date ADENOIDECTOMY PRIMARY <AGE 13 Adenoidectomy CATARACT EXTRACTION HX 2018 COLON SURGERY HX COLONOSCOPY 2009 ? [place]-incomplete tortuous colon COLONOSCOPY FLX DX W/COLLJ SPEC WHEN PFRMD 05/04/2018 serrated adenomas, repeat in 3 years COLONOSCOPY FLX DX W/COLLJ SPEC WHEN PFRMD 10/18/2021 2 small tubular adenomas-repeat in 3-5 years COLSC FLX W/REMOVAL LESION BY HOT BX FORCEPS 05/23/2015 repeat 2018 FRACTURE SURGERY HERNIA REPAIR HX 01/09/2019 exploratory laparotomy, removal of mesh, lysis of adhesion, primary closure of hernia defect NEUROPLASTY &/TRANSPOS MEDIAN NRV CARPAL TUNNE Right 05/26/2014 Carpal tunnel decomp PAST SURGICAL HISTORY OF 05/26/2014 right cubital tunnel release PAST SURGICAL HISTORY OF ORIF right 5th finger repair post crush injury PAST SURGICAL HISTORY OF N/A 10/2017 Bowel resection in [place] TONSILLECTOMY HX TONSILLECTOMY PRIMARY/SECONDARY <AGE 13 Tonsillectomy FAMILY HISTORY: FAMILY HISTORY Problem Relation Age of Onset Breast Cancer Mother in 90's Coronary Artery Disease Father bypass x 2 Heart Father other (ischemic strokes) Father No Known Problems Sister No Known Problems Brother No Known Problems Maternal Grandmother No Known Problems Maternal Grandfather No Known Problems Paternal Grandmother No Known Problems Paternal Grandfather No Known Problems Brother No Known Problems Daughter No Known Problems Son No Known Problems Son No Known Problems Son SOCIAL HISTORY: Social Connections: Moderately Isolated Frequency of Communication with Friends and Family: Twice a week Frequency of Social Gatherings with Friends and Family: Once a week Attends [employer] Services: Never Active Member of Clubs or Organizations: No Attends Club or Organization Meetings: Never Marital Status: REVIEW OF SYSTEMS: GENERAL: No fever, chills, weight loss, or fatigue. ENMT: Negative CARDIOVASCULAR:NO CHEST PAIN, PALPITATIONS, ANKLE EDEMA RESPIRATORY: No chronic cough, wheezing, dyspnea, hemoptysis. GENITOURINARY: SEE HPI MUSCULOSKELETAL:NO CHRONIC BACK PAIN, ARTHRITIS, CHRONIC NECK PAIN SKIN: NO VARICOSE VEINS, RASH, ABNORMAL ITCHING HEME/LYMPH/IMMUNE:Negative for prolonged bleeding, bruising easily or swollen nodes NEUROLOGICAL: NO HEADACHES, NUMBNESS, SEIZURES, STROKE DIABETES: no All other systems reviewed and are negative PHYSICAL EXAMINATION: Blood pressure 136/94, pulse 90, temperature 36.6 C (97.9 F), temperature source Temporal, resp. rate 12, height 177.8 cm (5' 10 ), weight 84.8 kg (187 lb), SpO2 96 %. GENERAL: WNL nutrition, no deformities, healthy appearing NEURO: Awake, alert and oriented x 3 and Normal gait PSYCH: No signs of depression, anxiety, or agitation ENMT (Ear, Nose, Mouth, Throat): No masses, adenopathy, icterus. Thyroid nonpalpable RESP: NL effort, no retractions or purse-lip breathing. CV: No extremity swelling, varices, edema, pallor, erythema GASTROINTESTINAL: Soft, nontender, nondistended, no masses. HERNIAS: None SKIN: No rash, lesions No palpable lymphadenopathy MUSCULOSKELETAL: Extremities normal. No deformities, edema, clubbing or skin discoloration. PROBLEM LIST REVIEW: Yes LABS: Results for orders placed or performed in visit on 01/06/23 UA DIP, URINE (POC) Result Value Ref Range GLUCOSE UA (POCT) Negative Negative mg/dL BILIRUBIN UA (POCT) Small (A) Negative KETONE UA (POCT) Trace Negative mg/dL SPECIFIC GRAVITY UA (POCT) 1.025 1.005 - 1.030 HEMOGLOBIN/BLOOD UA (POCT) Moderate (A) Negative PH UA (POCT) 5.5 4.5 - 8.0 PROTEIN UA (POCT) Trace (A) Negative mg/dL UROBILINOGEN UA (POCT) 0.2 Normal E.U./dL NITRITE UA (POCT) Negative Negative LEUKOCYTES UA (POCT) Negative Negative COLOR UA (POCT) Yellow CLARITY UA (POCT) Clear PROCEDURES: PVR: 0 ml IMAGING: IMPRESSION/PLAN: 77 year old male with 1. Frequent urination - ICD9: 788.41, ICD10: R35.0 On Flomax We discussed the common causes of urinary frequency and urgency, and restricting water intake In hopes to mitigate the need to urinate, we discussed how this behavior more often worsen the problem not improving it, we discussed increasing daily water intake to 64-84 oz 7a -7p and try to reduce bladder irritants, caffeine, alcohol and acid foods and drink. I spent a total of 40 minutes on the date of the service which included preparing to see the patient, face to face patient care, completing clinical documentation, obtaining and/or reviewing separately obtained history, performing a medically appropriate examination, counseling and educating the patient/family/caregiver, ordering medications, tests, or procedures, and care coordination. CARLTON Breaux MT, PA-C Verified name and date of . CC Post Void Residual HPI: Claudia Quevedo is a 77 year old male. The patient is here now for an appointment with CARLTON Breaux MT, PA-COV. Procedure: Explained procedure to patient and verbalizes understanding. Performed a PVR. Patient urinated and instructed to empty bladder as much as possible just prior to having PVR done using bladder ultrasound scanner. Results of scan: 0 mL The patient tolerated the procedure well. Plan: Appointment with Saeed. documented in this encounter [facility] 01-01-2023 Instructions Rox Hernandez MD - 01/01/2023 4:18 PM EDT It was a pleasure to see you today. We addressed the following diagnoses: Orthostatic dizziness Urgency of urination Parkinson's disease (hcc) (primary encounter diagnosis) Camptocormia Rbd (rem behavioral disorder) My recommendations are as follows: 01/01/2023 Visit: Parkinson - your motor symptoms are adequately managed. Continue current dose of levodopa. Urgency and orthostatic lightheadedness - mild for now, monitor. Remember to stay hydrated especially when traveling. You can speak to your urologist about urgency to see if Flomax dose needs to be adjusted. 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 Movement Disorders Medication Schedule: Medications 8AM 1PM 4:30 PM carbidopa/ levodopa 25 mg/ 100 mg 2 1.5 1.5 Lexapro 10 mg 1 Return in about 4 months (around 05/03/2023). If there are any concerns before your next visit, please call or you can send a message through [email or web address]. You can also now schedule and select appointments through [email or web address]. Rox Hernandez MD documented in this encounter [facility] 01-01-2023 History of Present illness Narrative [facility] - FOLLOW UP EVALUATION Evans Whittaker MD [id number] [facility] [id number] Dear Evans Whittaker MD: I had the pleasure of seeing Mr. Quevedo for follow-up today. As you know he is a 77 year old right-handed male with a history of PD since 2019. He is seen with his . Subjective Previous Plan-08/21/2022 Visit: PD - increase sinemet to 2/1.5/1.5 Camptocormia - will monitor Interval History: He thinks he is doing well. He exercises regularly on treadmill and weights machines. He thinks it helps him keep his back straight. R hand os still slow. He does not know if levodopa helps him. Does not notice side effects. He has anomia and RBD. RBD is active a few times a week. No harm. He has occasional lightlessness upon standing. Mild symptoms. He has BPH and experiences some urgency. There are infrequent issues with urge leaking. Movement Disorders Medications Schedule - as of the start of the visit: Medications 8AM 1PM 4:30 PM Levodopa 100 mg 2 1.5 1.5 Lexapro 10 mg 1 Parkinson's Motor Complications Medication benefit onset: unclear Medication duration: unclear Wearing off: no Painful off-state dystonia: no Dyskinesia: no Prior Anti-Parkinson Therapies none Answers submitted by the patient for this visit: Functional Neurologic Core and Associated Symptoms (Submitted on 12/28/2022) Please select the symptoms you have experienced DURING THE LAST 4 WEEKS.: abnormal movements, memory issues Ambulation (Submitted on 12/28/2022) In the PAST 7 DAYS, how often have you needed assistance (i.e. cane, walker, wheelchair, person) to walk or move around?: No assistance at all Top 3 Concerns (Submitted on 12/28/2022) FMD 1st concern: NA Questionnaires: Mood/Behavior Depression: PHQ-9 Score: 3 usually representing no significant (0-4) depression. Anxiety: JOAQUIN-7 Total Score: 0 usually representing no significant (0-4) anxiety. Finally, the following table shows the patient's overall global physical and mental health using the PROMIS scale: PROMIS-10 Flowsheet Row Office Visit from 10/28/2022 in [facility] [place] Office Visit from 08/21/2022 in [facility] Global Physical Health T Score 54.1 57.7 Global Mental Health T Score 59 62.5 0-10 Standard Pain Scale 4 5 *PROMIS-10 scoring scale: mean = 50, over 50 is above average, under 50 is below average ALLERGIES No Known Allergies Current Outpatient Medications Medication Sig escitalopram oxalate (LEXAPRO) 10 mg tablet Take 1 tablet by mouth once daily. atorvastatin (LIPITOR) 20 mg tablet Take 1 tablet by mouth daily at bedtime. carbidopa-levodopa (SINEMET) 25-100 mg per tablet Take 2 tablets in the morning, 1.5 tablets at noon, 1.5 tablets in the evening tamsulosin (FLOMAX) 0.4 mg Take 1 capsule by mouth once daily. ascorbic acid (VITAMIN C ORAL) Take by mouth once daily. Cholecalciferol, Vitamin D3, 25 mcg (1,000 unit) cap Take 1,000 Units by mouth once daily. multivitamin tablet Take 1 tablet by mouth once daily. No current facility-administered medications for this visit. Objective Vital Signs: BP 130/77 (BP Site: Left Arm, BP Position: Sitting, BP Cuff Size: Regular Adult) Pulse 84 Wt 85.1 kg (187 lb 9.6 oz) SpO2 97% BMI 26.92 kg/m Orthostatic Vitals: Sitting: BP 130/77 Pulse 84 Standing: BP 106/67 Pulse 90 Weight: 85.1 kg (187 lb 9.6 oz) No LMP for male patient. Body mass index is 26.92 kg/m . General Physical Examination: General: Awake, alert, interactive, no acute distress General Neurological Examination: Neurological Exam Mental Status Awake, alert and oriented to person, place and time. Cranial Nerves CN III, IV, : Normal range with query zigzag sign versus around the house . Motor R hand polyminimyoclonus . Gait Mild camptocormia. Mild lateral curvature of the spine as well,. Movement Disorders Cognitive and Motor Biomeasures: Processing Speed Test Total Number Correct:33; Z Score: -0.01 Visual Memory Test Raw Score: 38; Z Score: -0.15 Manual Dexterity Test (max = 180 secs) Left Hand Time: 29.26; Right Hand Time: 37.68 Walking Speed Test (25 foot walk): 4.94 *Z score interpretation: higher than -1.5 is within normal; -1.5 to -2.0 represents mild impairment; lower than -2.0 represents significant impairment Movement Disorders Scales Performed: MDS-UPDRS Motor subscale condition of exam Medication Off/On/Naiive ON Time of UPDRS Time of Last Medication Last Medication Taken DBS Right N/A DBS Left N/A MDS-UPDRS Motor subscale scores Speech 0-Normal. No speech problems. Facial Expression 1-Slight. Minimal masked facies manifested only by decreased frequency of blinking. Rigidity Neck 0-Normal. No rigidity. Rigidity Right Upper Extremity 1-Slight. Rigidity only detected with activation maneuver. Rigidity Left Upper Extremity 0-Normal. No rigidity. Rigidity Right Lower Extremity 1-Slight. Rigidity only detected with activation maneuver. Rigidity Left Lower Extremity 0-Normal. No rigidity. Finger Taps Right 2-Mild. a) 3 to 5 interruptions during tapping, b) mild slowing, c) the amplitude decrements midway in the 10-tap sequence. Finger Taps Left 1-Slight. a) the regular rhythm is broken with one or two interruptions or hesitations of the tapping movement, b) slight slowing, c) the amplitude decrements near the end of the 10 taps. Hand Movements Right 2-Mild. a) 3 to 5 interruptions during the movements, b) mild slowing, c) the amplitude decrements midway in the task. Hand Movements Left 0-Normal. No problem. Arm Movements Right 3-Moderate. a) more than 5 interruptions during the movement or at least one longer arrest (freeze) in ongoing movement, b) moderate slowing, c) the amplitude decrements starting after the 1st supination-pronation sequence. Arm Movements Left 0-Normal. No problems. Toe Taps Right 1-Slight. a) the regular rhythm is broken with one or two interruptions or hesitations of the tapping movement, b) slight slowing, c) the amplitude decrements near the end of the ten taps. Toe Taps Left 1-Slight. a) the regular rhythm is broken with one or two interruptions or hesitations of the tapping movement, b) slight slowing, c) the amplitude decrements near the end of the ten taps. Leg Agility Right 0-Normal. No problems. Leg Agility Left 0-Normal. No problems. Arise From Chair 1-Slight. Arising is slower than normal, or may need more than one attempt, or may need to move forward in the chair to arise. No need to use the arms of the chair. Gait 2-Mild. Independent walking but with substantial gait impairment. Gait Freezing 0-Normal. No freezing. Posture Stability 0-Normal. No problems: recovers with one or two steps. Posture 2-Mild. Definite flexion, scoliosis or leaning to one side, but patient can correct posture to normal posture when asked to do so. Body Bradykinesia 0-Normal. No problems. Postural Tremor Hand Right 1-Slight. Tremor is present but less than 1cm in amplitude. Postural Tremor Hand Left 0-Normal. No tremor. Kinetic Tremor Right 1-Slight. Tremor is present but less than 1cm in amplitude. Kinetic Tremor Left 0-Normal. No tremor. Rest Tremor Amplitude Right Upper Extremity 0-Normal. No tremor. Rest Tremor Amplitude Left Upper Extremity 0-Normal. No tremor. Rest Tremor Amplitude Right Lower Extremity 0-Normal. No tremor. Rest Tremor Amplitude Right Lower Extremity 0-Normal. No tremor. Rest Tremor Amplitude Lip/Jaw 0-Normal. No tremor. Rest Tremor Constancy 0-Normal. No tremor. MDS-UPDRS Motor subscale totals Left Total 2 Right Total 12 Midline Total 6 Tremor Total / 10 2 PIGD Total / 3 2 Overall Total 20 % Change Compared to Last Filed Total Assessment and Plan: Assessment Mr. Quevedo is a right-handed 77 year old year old male with History of parkinsonisms with right hand incoordination, fine tremor and perceived weakness since 2019. He was diagnosed with PD since 2019. He also has hx of anosmia and RBD. He is motorically stable. He does not endorse any motor fluctuations. From non motor perspective, he has mild and infrequent RBD, urgency and orthostatic lightheadedness. His posture had been stable with regular exercise. 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 There are some features that raise concern for atypical parkinsonism like autonomic features of orthostatic, cold hands, and urgency, as well as polyminimyoclonus, mild camptocormia and other ocular features as described above. We will continue to monitor these longitudinally. The following are the current problems noted and addressed during this visit: Orthostatic dizziness Urgency of urination Parkinson's disease (hcc) (primary encounter diagnosis) Camptocormia Rbd (rem behavioral disorder) Plan 01/01/2023 Visit: Parkinson - your motor symptoms are adequately managed. Continue current dose of levodopa. Urgency and orthostatic lightheadedness - mild for now, monitor. Remember to stay hydrated especially when traveling. You can speak to your urologist about urgency to see if Flomax dose needs to be adjusted. 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 Camptocormia - Claudia feels it is better with exercise. Interested in clinical research? Already participating in research Updated Movement Disorders Medication Schedule: Medications 8AM 1PM 4:30 PM carbidopa/ levodopa 25 mg/ 100 mg 2 1.5 1.5 Lexapro 10 mg 1 Thank you for allowing me to be part of the clinical care of this patient! I look forward to continued participation in the patient s care with you. Please do not hesitate to call with any questions. Sincerely, Rox Hernandez MD Neurology attending addendum: I personally saw and examined the patient with the Fellow. The case and management was discussed in detail. I agree with the above note regarding the patient's: Parkinson's disease (hcc) (primary encounter diagnosis) Orthostatic dizziness Urgency of urination [facility] (rem behavioral disorder) Level of service : 24326 (40-54 min). Time spent 40 min on the day of service, which included preparing to see the patient, [id number] patient care, completing clinical documentation, obtaining and/or reviewing separately obtained history, performing a medically appropriate examination, counseling and educating the patient/family/caregiver, and ordering medications, tests, or procedures. MD Clark Arizmendi Endowed Chair in Movement Disorders Director, [facility], [facility] [place] [facility] tax consultant (Neurology), [facility] documented in this encounter [facility] 12-31-2022 Miscellaneous Notes Patient has been identified by name and date of : Yes Requested Prescriptions Pending Prescriptions Disp Refills escitalopram oxalate (LEXAPRO) 10 mg tablet 90 tablet 3 Sig: Take 1 tablet by mouth once daily. RX INSTRUCTIONS: Patient aware RX will be sent to pharmacy. No need to notify patient. Patrica Messer documented in this encounter [facility] [place] [facility] 12-18-2022 Instructions Kaylie Bullock MA - 12/18/2022 1:48 PM EST GENERAL SUN SAFETY Thank you for allowing me to examine you for signs of skin cancer today. We had an opportunity to discuss my findings and any treatments I recommended. I believe that there are several steps that a person can do to help prevent skin cancers and to detect them at an early, treatable stage: 1. I highly recommend that once a month you perform your own complete skin check looking for changing or unusual spots. Use a wall-mounted mirror and a hand mirror to assist in seeing body areas that are difficult to see otherwise. If you have a family member that can assist, this is often helpful. Additional information can be obtained at: www.skincancer.org/xqdo-lnumfg-uuf ormation/early-detection 2. In many cases, skin cancer can be prevented. The best way to protect yourself is to avoid too much sun and sunburns. Health care providers believe that ultraviolet rays (UV rays) from the sun damage the skin and over time lead to skin cancer. Here are ways to protect yourself: -Don't spend long periods of time in direct sunlight. -Wear hats with brims to protect your face and ears. -Wear long-sleeved shirts and pants to protect your arms and legs. -Use broad spectrum sunscreens with a SPF (skin protection factor) of 30 or higher that protect against burning and tanning rays. Apply the lotion 30 minutes before you go outside. (Broad-spectrum sunscreens protect against UV-B and UV-A rays.) -Wear sunglasses to protect your eyes. -Use a lip balm with sunscreen. -Avoid the sun between 10am and 4pm. -Show any changing mole to your health care provider. SKIN CARE AFTER CRYOSURGERY The skin's response to cryosurgery (freezing) can be mild to severe, depending on the depth of the freeze and location of the area treated. You may have minimal redness and swelling with little discomfort or significant discoloration and blistering with considerable discomfort. A burning sensation in the skin may last from several minutes to several hours after the procedure. Follow these instructions when caring for an area treated by cryosurgery: 1. Please clean the area every day with gentle soap and water. It is not necessary to cover the site with a bandage. However, it may be used for protection and it must be changed daily. Do not leave a soiled or wet bandage on the wound. 2. If you are experiencing discomfort you may use a cool compress, elevate the area or take over the counter pain relievers. 3. Apply Vaseline or Aquaphor daily to the site. This can help with itching, irritation, and discomfort. -The lesion may take 2-4 weeks to fully resolve. Depending on the severity of treatment and lesion treated, it may take longer. -DO NOT USE NEOSPORIN OR BACITRACIN as there is a fairly high incidence of allergic response to these products. -You may experience some mild discomfort, redness, swelling, and/or a clear discharge from the wound after your procedure. Severe pain, worsening swelling, and foul-smelling discharge from the site are NOT to be expected. If you have concerns about how your wounds are healing, please send your provider a [employer] message or call . documented in this encounter [facility] 12-18-2022 History of Present illness Narrative Images from the original note were not included. Department of Dermatology Lianna Moss APRN.MANUEL 12/18/2022 Last visit in Dermatology: Visit date not found Objective/Assessment/Plan 1. AK (actinic keratosis) (4) Left Forehead (4) Red papules with gritty adherent scale. CRYOTHERAPY SKIN LESION - Left Forehead (3) Complexity: simple Destruction method: cryotherapy Informed consent: discussed and consent obtained Timeout: patient name, date of , surgical site, and procedure verified Lesion destroyed using liquid nitrogen: Yes Cryotherapy cycles: 2 Outcome: patient tolerated procedure well with no complications Post-procedure details: wound care instructions given Additional details: Actinic keratosis - Discussed premalignant etiology - Discussed risks and benefits of treatment options including cryotherapy vs Efudex 5% vs. Photodynamic Therapy (PDT). - Given recommend local therapy with cryotherapy. - Patient elects for treatment with Cryotherapy: Risks, benefits, alternatives, complications, and personnel required for cryosurgery were reviewed with the patient. Specifically, the risks of permanent scarring, loss or darkening of skin color, blister, incomplete treatment, and recurrence of the lesion were discussed. The patient verbalizes understanding and wishes to proceed. - Cryosurgery performed with Liquid Nitrogen via cryostat spray gun to Actinic Keratosis . - Patient tolerated well and wound care was discussed. Return if lesions fail to fully resolve. 2. Seborrheic keratosis Stuck-on verrucous, variably pigmented papules and plaques. Scattered to the trunk, bilateral upper extremities, bilateral lower extremities. Observational course. Monitor for growth and changes. 3. Hernandez angioma Hernandez-red papule(s). Scattered to the trunk, bilateral upper extremities, bilateral lower extremities. Observational course. Monitor for growth and changes. 4. Skin pain Right Cymba Skin appears unremarkable today Discussed applying Vaseline daily until healed. Return to clinic in a month for re-evaluation and/or sooner if symptoms worsen. The nature of sun-induced photo-aging and skin cancers is discussed. Sun avoidance, protective clothing, and the use of 30-SPF sunscreens is advised. Patient is instructed to perform regular self exams. Observe for changing, symptomatic, or new skin lesions and seek care with the patient's primary care provider or with dermatology if any lesions of concern are noted. Follow-up as noted below or as needed. Lianna Moss APRN.CNP Chief Complaint: Patient presents with: Full Body Skin Check Subjective and Objective HPI: Claudia Quevedo is a 77 year old male who presents for: Skin check. Desires: Total body skin check History of skin cancer?: No Areas of particular concern?: Yes: Lesion(s): bumps Location(s): face Duration: 2 years Symptoms: occasionally bleed when picked at Inciting factors: patient picks at lesions to remove Associated symptoms/previous treatments: no associated symptoms noted Bump in the right ear. Present for a couple years. Tender to touch at times. Past medical history is reviewed. Medication list is reviewed. Physical Exam included: Scalp, face, ears, neck, chest, back, abdomen, bilateral upper extremities, bilateral lower extremities, buttocks, hands, feet, nails and hair Intake completed by Caridad Youssef LPN The documentation for this note was completed by Kaylie Bullock MA acting as scribe for Lianna Moss APRN.CNP. December 18, 2022 2:18 PM I agree with the Chief Complaint, ROS, and Past Histories independently gathered by the clinical business support associate and the remaining scribed note accurately describes my personal service to the patient. Lianna Moss APRN.CNP documented in this encounter [facility] 12-04-2022 History of Present illness Narrative Chief Complaint Patient presents with: Recheck: UTI follow up- patient on Cipro and reports he's noticing improvement. Consult: Urology HPI Claudia Quevedo is a 77 year old male who presents here today for Above Complaints.. Patient evaluated at [facility] ED yesterday for complaint of hematuria, dysuria, and urinary urgency after being diagnosed with UTI in on 12/01 treated with Bactrim DS. In the ED, it was noted he was using a urethral sound device into his urethra to improve his sex life. Workup in the ED showed unremarkable CBC. Creatinine increased to 1.33 on CMP. UA positive for RBC and WBC. Negative nitrites. Switched to Cipro and discharged home with recommendation to follow up with our office. Given urology referral at our request in case symptoms did not start to improve with new abx. Since discharge, he has been taking abx as prescribed without side effects. Dysuria and hematuria is improving, but is still having urinary urgency and frequency after 3 doses of Cipro thus far. Denies fever/chills, penile/testicular pain/swelling, abdominal pain, flank pain, nausea, vomiting, diarrhea. Patient states that he does not plan to repeat use of the urethral sound device. Urine culture from [facility] pending. Past medical history, appointments, medications, allergies reviewed. Previous Medical History PAST MEDICAL HISTORY Diagnosis Date Anxiety BPPV (benign paroxysmal positional vertigo) 03/2021 DVT (deep venous thrombosis) ([facility]) 2019 left lower leg 2/2 surgery Enlarged prostate Hyperlipidemia Incisional hernia repair x2 with complication of SBO Parkinson's disease ([facility]) Dr. Friend Poliomyelitis had at age 11 Post-polio syndrome Rectal bleeding SBO (small bowel obstruction) ([facility]) Snoring Previous Surgical History PAST SURGICAL HISTORY Procedure Laterality Date ADENOIDECTOMY PRIMARY <AGE 13 Adenoidectomy CATARACT EXTRACTION HX 2018 COLON SURGERY HX COLONOSCOPY 2009 ? [place]-incomplete tortuous colon COLONOSCOPY FLX DX W/COLLJ SPEC WHEN PFRMD 05/04/2018 serrated adenomas, repeat in 3 years COLONOSCOPY FLX DX W/COLLJ SPEC WHEN PFRMD 10/18/2021 2 small tubular adenomas-repeat in 3-5 years COLSC FLX W/REMOVAL LESION BY HOT BX FORCEPS 05/23/2015 repeat 2018 FRACTURE SURGERY HERNIA REPAIR HX 01/09/2019 exploratory laparotomy, removal of mesh, lysis of adhesion, primary closure of hernia defect NEUROPLASTY &/TRANSPOS MEDIAN NRV CARPAL TUNNE Right 05/26/2014 Carpal tunnel decomp PAST SURGICAL HISTORY OF 05/26/2014 right cubital tunnel release PAST SURGICAL HISTORY OF ORIF right 5th finger repair post crush injury PAST SURGICAL HISTORY OF N/A 10/2017 Bowel resection in [place] TONSILLECTOMY HX TONSILLECTOMY PRIMARY/SECONDARY <AGE 13 Tonsillectomy Family History FAMILY HISTORY Problem Relation Age of Onset Breast Cancer Mother in 's Coronary Artery Disease Father bypass x 2 Heart Father other (ischemic strokes) Father No Known Problems Sister No Known Problems Brother No Known Problems Maternal Grandmother No Known Problems Maternal Grandfather No Known Problems Paternal Grandmother No Known Problems Paternal Grandfather No Known Problems Brother No Known Problems Daughter No Known Problems Son No Known Problems Son No Known Problems Son Patient Allergies ALLERGIES No Known Allergies Current Medications Current Outpatient Medications on File Prior to Visit Medication Sig sulfamethoxazole-trimethoprim (BACTRIM DS) 800-160 mg per tablet Take 1 tablet by mouth twice daily for 10 days. atorvastatin (LIPITOR) 20 mg tablet Take 1 tablet by mouth daily at bedtime. carbidopa-levodopa (SINEMET) 25-100 mg per tablet Take 2 tablets in the morning, 1.5 tablets at noon, 1.5 tablets in the evening tamsulosin (FLOMAX) 0.4 mg Take 1 capsule by mouth once daily. escitalopram oxalate (LEXAPRO) 10 mg tablet Take 1 tablet by mouth once daily. ascorbic acid (VITAMIN C ORAL) Take by mouth once daily. Cholecalciferol, Vitamin D3, 25 mcg (1,000 unit) cap Take 1,000 Units by mouth once daily. multivitamin tablet Take 1 tablet by mouth once daily. No current facility-administered medications on file prior to visit. Social History Social History Tobacco Use Smoking status: Former Packs/day: 0.50 Years: 5.00 Pack years: 2.50 Types: Cigarettes Quit date: 06/27/1969 Years since quittin.4 Smokeless tobacco: Former Types: Chew Quit date: 05/04/2008 Tobacco comments: Using nicotine lozenges 4 mg 5-6 times daily Vaping Use Vaping Use: Never used Substance Use Topics Alcohol use: Yes Alcohol/week: 35.0 standard drinks Types: 14 Glasses of Wine (5oz) per week Comment: nightly-sometimes beer or mixed drink Drug use: Not Currently Comment: marijuana 3 times in his life Review of Symptoms REVIEW OF SYSTEMS See HPI EXAM: BP 108/62 Pulse 71 Temp 36.5 C (97.7 F) Resp 16 Wt 82.9 kg (182 lb 12.8 oz) SpO2 97% BMI 26.23 kg/m General Appearance: Well appearing, alert, in no acute distress, well-hydrated, well nourished.. Skin: Skin color, texture, turgor normal, no suspicious rashes or lesions. Abdomen: Normal abdominal exam, Abdomen soft, non-tender. Bowel sounds normal. No masses, organomegaly, Negative CVA tenderness. Genitalia: Penis normal. No urethral discharge. Scrotum normal to palpation. No hernia.. Health Maintenance List SHINGRIX VACCINE(1 of 2) Never done ADVANCE DIRECTIVE DISCUSSION Never done DIABETES SCREEN due on 10/28/2025 DTAP,TDAP,TD(2 - Td or Tdap) due on 05/31/2031 INFLUENZA Completed DEPRESSION ASSESSMENT Completed HEPATITIS C SCREENING Completed COVID-19 VACCINE Completed PNEUMOCOCCAL: 65+ Completed Data reviewed Component Latest Ref Rng & Units 12/01/2022 Color Yellow [place] (A) Clarity Clear Cloudy (A) Glucose, Urine Trace, Negative Negative Bilirubin, Urine Negative Negative Ketones, Urine Trace, Negative Trace Specific [place], Ur 1.005 - 1.030 1.029 Hemoglobin/Blood,Ur Negative, Trace 3+ (A) pH, Urine 5.0 - 8.0 6.0 Protein, Urine Trace, Negative 2+ (A) Urobilinogen Negative Negative Nitrites Negative Negative Leukest Negative, 25 Eli/uL 250 Eli/uL (A) WBC, Urine 0-5 /HPF >25 /HPF (A) RBC, Urine 0-3 /HPF >25 /HPF (A) Bacteria None Seen /HPF Few (A) Epithelial Cells /HPF Few Hyaline Cast 0 /LPF >10 /LPF (A) Granular Cast 0 /LPF 1-3 /LPF (A) Budding Yeast None Seen /HPF Few (A) Component Latest Ref Rng & Units 12/01/2022 Culture 10,000 -<50,000 CFU/ml Mixed microbiota (A) ASSESSMENT/PLAN: 1. Acute cystitis with hematuria - ICD9: 595.0, ICD10: N30.01 (primary diagnosis) Symptoms improving with Cipro. Continue abx and push PO fluids. If symptoms do not completely resolve, will repeat UA C&S and refer to urology. 2. Genitourinary complaints - ICD9: 788.99, ICD10: R39.9 See above. With use of urethral sound and hematuria, there is concern that urethra could have been damaged if symptoms persist. Would have him follow up with urology if not improving. Evans Whittaker MD documented in this encounter [facility] 12-03-2022 Miscellaneous Notes Spoke with pcp since no opening on schedule Thursday and [employer]GR[employer] is out. Pcp said to keep and patient aware Juju Simmons Ma I would see him Thursday instead to try to give closer to 48 hours on abx to see if symptoms improve. Patient has appointment tomorrow. Called to r/s brett out but patient is leaving Thursday for [place] for a month. Advised would not cancel tomorrow till sent to pcp Juju Simmons Ma Called by Dr. Bateman at [facility] ED for patient who presented with gross hematuria and urgency despite bactrim for UTI after using urethral sound to stimulate himself during sex. Switching to Cipro and will need f/u in 3-5 days. Requested urology referral in case symptoms not improved. documented in this encounter [facility] 12-02-2022 Miscellaneous Notes Patient given results and verbalized understanding of instructions given. Khloe Srivastava Please notify that urine culture showed likely contamination. Continue atb if s/s improving, if s/s persist needs to f/u and retest. documented in this encounter [facility] 12-01-2022 Miscellaneous Notes Patient given results and verbalized understanding of instructions given. Khloe Srivastava Let patient know their covid19/flu test was negative. documented in this encounter [facility] 12-01-2022 History of Present illness Narrative Subjective HPI HPI Claudia Quevedo is a 77 year old male who presents today for CC of urinary urgency, frequency, burning. This started 2 days ago after using a urethral sound device. Has tried nothing for relief. Symptoms are worsened by nothing. Denies hx of uti. Pain noted behind testicles. Nasal congestion/drainage for few days. Denies cough, st, ear pain, n/v/d. .Patient presents with: UTI: Painful urination, incontinence x2 days PAST MEDICAL HISTORY Diagnosis Date Anxiety BPPV (benign paroxysmal positional vertigo) 03/2021 DVT (deep venous thrombosis) ([facility]) 2019 left lower leg 2/2 surgery Enlarged prostate Hyperlipidemia Incisional hernia repair x2 with complication of SBO Parkinson's disease ([facility]) Dr. Friend Poliomyelitis had at age 11 Post-polio syndrome Rectal bleeding SBO (small bowel obstruction) ([facility]) Snoring PAST SURGICAL HISTORY Procedure Laterality Date ADENOIDECTOMY PRIMARY <AGE 13 Adenoidectomy CATARACT EXTRACTION HX 2018 COLON SURGERY HX COLONOSCOPY 2009 ? [place]-incomplete tortuous colon COLONOSCOPY FLX DX W/COLLJ SPEC WHEN PFRMD 05/04/2018 serrated adenomas, repeat in 3 years COLONOSCOPY FLX DX W/COLLJ SPEC WHEN PFRMD 10/18/2021 2 small tubular adenomas-repeat in 3-5 years COLSC FLX W/REMOVAL LESION BY HOT BX FORCEPS 05/23/2015 repeat 2018 FRACTURE SURGERY HERNIA REPAIR HX 01/09/2019 exploratory laparotomy, removal of mesh, lysis of adhesion, primary closure of hernia defect NEUROPLASTY &/TRANSPOS MEDIAN NRV CARPAL TUNNE Right 05/26/2014 Carpal tunnel decomp PAST SURGICAL HISTORY OF 05/26/2014 right cubital tunnel release PAST SURGICAL HISTORY OF ORIF right 5th finger repair post crush injury PAST SURGICAL HISTORY OF N/A 10/2017 Bowel resection in [place] TONSILLECTOMY HX TONSILLECTOMY PRIMARY/SECONDARY <AGE 13 Tonsillectomy ALLERGIES Patient has no known allergies. MEDICATIONS atorvastatin (LIPITOR) 20 mg tablet Take 1 tablet by mouth daily at bedtime. carbidopa-levodopa (SINEMET) 25-100 mg per tablet Take 2 tablets in the morning, 1.5 tablets at noon, 1.5 tablets in the evening tamsulosin (FLOMAX) 0.4 mg Take 1 capsule by mouth once daily. escitalopram oxalate (LEXAPRO) 10 mg tablet Take 1 tablet by mouth once daily. ascorbic acid (VITAMIN C ORAL) Take by mouth once daily. Cholecalciferol, Vitamin D3, 25 mcg (1,000 unit) cap Take 1,000 Units by mouth once daily. multivitamin tablet Take 1 tablet by mouth once daily. sulfamethoxazole-trimethoprim (BACTRIM DS) 800-160 mg per tablet Take 1 tablet by mouth twice daily for 10 days. FAMILY HISTORY Problem Relation Age of Onset Breast Cancer Mother in 90's Coronary Artery Disease Father bypass x 2 Heart Father other (ischemic strokes) Father No Known Problems Sister No Known Problems Brother No Known Problems Maternal Grandmother No Known Problems Maternal Grandfather No Known Problems Paternal Grandmother No Known Problems Paternal Grandfather No Known Problems Brother No Known Problems Daughter No Known Problems Son No Known Problems Son No Known Problems Son Social History Tobacco Use Smoking status: Former Packs/day: 0.50 Years: 5.00 Pack years: 2.50 Types: Cigarettes Quit date: 06/27/1969 Years since quittin.4 Smokeless tobacco: Former Types: Chew Quit date: 05/04/2008 Tobacco comments: Using nicotine lozenges 4 mg 5-6 times daily Vaping Use Vaping Use: Never used Substance Use Topics Alcohol use: Yes Alcohol/week: 35.0 standard drinks Types: 14 Glasses of Wine (5oz) per week Comment: nightly-sometimes beer or mixed drink Drug use: Not Currently Comment: marijuana 3 times in his life Review of Systems Constitutional: Positive for fever (elevated temp). Negative for chills and weight loss. HENT: Positive for congestion. Negative for ear pain, nosebleeds and sore throat. Respiratory: Negative for cough, shortness of breath and wheezing. Cardiovascular: Negative for chest pain and palpitations. Gastrointestinal: Negative for abdominal pain, blood in stool, constipation, diarrhea, heartburn, melena, nausea and vomiting. Genitourinary: Positive for dysuria, frequency and urgency. Negative for flank pain and hematuria. Musculoskeletal: Positive for myalgias. Negative for neck pain. Skin: Negative for itching and rash. Objective Blood pressure 122/68, pulse 96, temperature 37.6 C (99.6 F), resp. rate 18, weight 84.4 kg (186 lb), SpO2 96 %. Physical Exam Constitutional: General: He is not in acute distress. Appearance: Normal appearance. He is not toxic-appearing or diaphoretic. HENT: Head: Normocephalic and atraumatic. Nose: Nose normal. Mouth/Throat: Pharynx: Uvula midline. No pharyngeal swelling, oropharyngeal exudate, posterior oropharyngeal erythema or uvula swelling. Eyes: General: Lids are normal. No scleral icterus. Right eye: No discharge. Left eye: No discharge. Conjunctiva/sclera: Conjunctivae normal. Pupils: Pupils are equal, round, and reactive to light. Neck: Trachea: Trachea normal. Cardiovascular: Rate and Rhythm: Normal rate and regular rhythm. Heart sounds: Normal heart sounds. Pulmonary: Effort: Pulmonary effort is normal. Breath sounds: Normal breath sounds. Abdominal: General: Bowel sounds are normal. Palpations: Abdomen is soft. Tenderness: There is no abdominal tenderness. Musculoskeletal: Cervical back: Normal range of motion and neck supple. Lymphadenopathy: Cervical: No cervical adenopathy. Right cervical: No superficial cervical adenopathy. Left cervical: No superficial cervical adenopathy. Skin: General: Skin is warm and dry. Findings: No rash. Neurological: Mental Status: He is alert and oriented to person, place, and time. ASSESSMENT/PLAN: 1. Painful urination - ICD9: 788.1, ICD10: R30.9 (primary diagnosis) acute - UA positive for eli esterase, hematuria, proteinuria, nitrates, and bili, ket - Send urine for culture - Begin treatment with Bactrim DS BID for 10 days - UA DIP, URINE (POC) - URINE CULTURE 2. URI, acute - ICD9: 465.9, ICD10: J06.9 - Discussed viral etiology and rationale for treatment. - Symptomatic treatment with prn analgesia - Supportive care with fluids and rest - Follow up in 3-5 days if symptoms persist or sooner if worsening of symptoms - COVID WITH FLUA+B, ROUTINE 3. Bilirubinuria - ICD9: 791.4, ICD10: R82.2 If true bili will have f/u with pcp for recheck - URINALYSIS, WITH MICROSCOPIC 4. Acute cystitis with hematuria - ICD9: 595.0, ICD10: N30.01 Cover with bactrim Worsening s/s go to ER Will schedule f/u with pcp for recheck. - SULFAMETHOXAZOLE 800 MG-TRIMETHOPRIM 160 MG TABLET Skip Lawler APRN.CNP documented in this encounter [facility] 10-29-2022 Miscellaneous Notes Patient called and notified of results and providers instructions. Patient verbalizes understanding. Adriana Fu RN Please call patient and let him know is blood work is in acceptable ranges. Continue current medications. Stefani Ornelas APRN.CNP documented in this encounter [facility] 10-28-2022 History of Present illness Narrative 10/28/2022 Patient presents with: Follow Up: Patient comes in today for a check up. Concerned about lesions to forehead that have been there for about a year. SUBJECTIVE: This is a 77 year old that is here today for Above Complaints. Since last office visit has been in good health without ER visits or hospitalizations. Parkinson: Last follow-up on 08/21/2022. Sinemet increased at visit, doesn't notice much of a change. Next follow-up scheduled in December. Denies increasing muscle tremors or weakness. No recent falls. BPH: taking Flomax as prescribed without side effects. Nocturia 1-2 times per night. Occasional urge incontinence. Denies dysuria, straining, weak stream or hematuria HYPERLIPIDEMIA: Patient is taking medications: Yes. Patient is watching diet: Yes. Patient denies myalgias: Yes. Patient denies gi upset: Yes Depression: taking Lexapro as prescribed without side effects. Denies depressive symptoms, SI or HI Reports gets bumps on his forehead and picks at them. Concerned for possible skin cancer. Denies areas itch or other areas of concern. 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 PAST MEDICAL HISTORY Diagnosis Date Anxiety BPPV (benign paroxysmal positional vertigo) 03/2021 DVT (deep venous thrombosis) ([facility]) 2019 left lower leg 2/2 surgery Enlarged prostate Hyperlipidemia Incisional hernia repair x2 with complication of SBO Parkinson's disease ([facility]) Dr. 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 MEDICATIONS Current Outpatient Medications Medication Sig atorvastatin (LIPITOR) 20 mg tablet Take 1 tablet by mouth daily at bedtime. carbidopa-levodopa (SINEMET) 25-100 mg per tablet Take 2 tablets in the morning, 1.5 tablets at noon, 1.5 tablets in the evening tamsulosin (FLOMAX) 0.4 mg Take 1 capsule by mouth once daily. escitalopram oxalate (LEXAPRO) 10 mg tablet Take 1 tablet by mouth once daily. ascorbic acid (VITAMIN C ORAL) Take by mouth once daily. Cholecalciferol, Vitamin D3, 25 mcg (1,000 unit) cap Take 1,000 Units by mouth once daily. multivitamin tablet Take 1 tablet by mouth once daily. No current facility-administered medications for this visit. Medications and allergies reviewed by this provider. SOCIAL HISTORY Social History Tobacco Use Smoking status: Former Packs/day: 0.50 Years: 5.00 Pack years: 2.50 Types: Cigarettes Quit date: 06/27/1969 Years since quittin.3 Smokeless tobacco: Former Types: Chew Quit date: 05/04/2008 Tobacco comments: Using nicotine lozenges 4 mg 5-6 times daily Vaping Use Vaping Use: Never used Substance Use Topics Alcohol use: Yes Alcohol/week: 35.0 standard drinks Types: 14 Glasses of Wine (5oz) per week Comment: nightly-sometimes beer or mixed drink Drug use: Not Currently Comment: marijuana 3 times in his life REVIEW OF SYSTEMS GENERAL: No weight loss, malaise or fevers HEENT: Negative for frequent or significant headaches, No changes in hearing or vision, no nose bleeds or other nasal problems RESPIRATORY: Negative for cough, hemoptysis, wheezing, COPD, dyspnea or shortness of breath CARDIOVASCULAR: Negative for chest pain, leg swelling, hypertension, CHF or palpitations GI: No nausea, vomiting, or diarrhea SKIN: See HPI ENDOCRINE: Negative for cold or heat intolerance, polyuria, polydipsia and goiter NEURO: No history of headaches, syncope, paralysis, or seizures All other reviewed and negative other than HPI. OBJECTIVE: BP 98/68 Pulse 81 Resp 16 Wt 85.3 kg (188 lb) SpO2 94% BMI 26.98 kg/m . Vital signs reviewed by this provider. APPEARANCE Well appearing, alert, in no acute distress, well-hydrated, well nourished. EYES conjunctiva and sclera normal. EARS External ears normal, canals clear NECK Supple, no adenopathy; thyroid symmetric, normal size, no bruits HEART RRR with normal S1 and S2, no murmurs, no gallops, no JVD appreciated LUNG clear to auscultation EXTREMITIES Extremities normal, No deformities, No skin discoloration, and No edema SKIN A few scattered scabbed areas to right and left sabianist area without surrounding erythema,, warmth or drainage. Scattered actinic keratosis to deepa and scalp Component Latest Ref Rng & Units 05/31/2021 Total Cholesterol, Nonfasting <200 mg/dL 164 Triglycerides, Nonfasting <150 mg/dL 27 HDL Cholesterol, Nonfasting >39 mg/dL 102 LDL Cholesterol, Nonfasting <100 mg/dL 57 Non HDL Cholesterol, Nonfasting <130 mg/dL 62 VLDL Cholesterol, Nonfasting <30 mg/dL 5 Total Chol/HDL Ratio, Nonfasting <5.10 mg/dL 1.61 LDL/HDL Ratio, Nonfasting <2.54 mg/dL 0.56 PSA Screening 0.00 - 2.59 ng/mL 0.87 Component Latest Ref Rng & Units 05/15/2020 Protein, Total 6.3 - 8.0 g/dL 7.0 Albumin 3.9 - 4.9 g/dL 4.2 Calcium 8.5 - 10.2 mg/dL 9.5 Bilirubin, Total 0.2 - 1.3 mg/dL 0.6 Alkaline Phosphatase 38 - 113 U/L 56 AST 14 - 40 U/L 27 Glucose 74 - 99 mg/dL 82 BUN 9 - 24 mg/dL 12 Creatinine 0.73 - 1.22 mg/dL 1.02 Sodium 136 - 144 mmol/L 139 Potassium 3.7 - 5.1 mmol/L 4.6 Chloride 97 - 105 mmol/L 100 CO2 22 - 30 mmol/L 30 Anion Gap 9 - 18 mmol/L 9 ALT 10 - 54 U/L 9 (L) eGFR- >60 eGFR-All Other Races . >60 SHINGRIX VACCINE(1 of 2) Never done ADVANCE DIRECTIVE DISCUSSION Never done DEPRESSION ASSESSMENT Never done DIABETES SCREEN due on 05/15/2023 DTAP,TDAP,TD(2 - Td or Tdap) due on 05/31/2031 INFLUENZA Completed HEPATITIS C SCREENING Completed COVID-19 VACCINE Completed PNEUMOCOCCAL: 65+ Completed ASSESSMENT/PLAN: 1. Pure hypercholesterolemia - ICD9: 272.0, ICD10: E78.00 (primary diagnosis) - continue atorvastatin - blood work as below - LIPID PANEL BASIC - COMP METABOLIC PANEL - follow-up in one year, sooner if needed 2. Concern about skin cancer without diagnosis - ICD9: V65.5, ICD10: Z71.1 - CONSULT TO DERMATOLOGY 3. Major depressive disorder, remission status unspecified, unspecified whether recurrent - ICD9: 296.20, ICD10: F32.9 - stable on current regime - DEPRESSION SCREENING/ASSESSMENT - follow-up yearly and as needed 4. Parkinson's disease (HCC) - ICD9: 332.0, ICD10: G20 - stable - follow-up with neurology as scheduled 5. AK (actinic keratosis) - ICD9: 702.0, ICD10: L57.0 - CONSULT TO DERMATOLOGY Stefani Ornelas APRN.RAMP BOSS Prescription instructions reviewed with patient as applicable. Patient advised if symptoms do not improve or if symptoms worsen sooner, to contact their primary care physician. Potential red flag symptoms discussed with the patient. Reviewed appropriate action plan to take if red flag symptoms occur. Patient agreeable to treatment plan. I spent a total of 30 minutes on the date of the service which included preparing to see the patient, [id number] patient care, completing clinical documentation, obtaining and/or reviewing separately obtained history, performing a medically appropriate examination, counseling and educating the patient/family/caregiver, and ordering medications, tests, or procedures. documented in this encounter [facility] 10-27-2022 Miscellaneous Notes Left a message for pt to call the office and ask to speak to a nurse. Yasmine Melgoza LPN Patient overdue for routine check up. Recommend he schedule 40 minute OV in next 1-2 months. Will send in 90 day refill. Patient has been identified by name and date of : Yes Requested Prescriptions Pending Prescriptions Disp Refills atorvastatin (LIPITOR) 20 mg tablet 90 tablet 1 Sig: Take 1 tablet by mouth daily at bedtime. RX INSTRUCTIONS: Patient is due for renewal approximately 11/12/22. He is being proactive and calling ahead. I verified he has enough medication until then. Patient aware RX will be sent to pharmacy. No need to notify patient. Sommer Bethea Pss documented in this encounter [facility] 08-21-2022 Instructions Elsie Tolentino MD - 08/21/2022 2:45 PM EST It was a pleasure to see you today. 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 If there are any concerns before your next visit, please call or you can send a message through [email or web address]. You can also now schedule and select appointments through [email or web address]. Elsie Tolentino MD documented in this encounter [facility] 08-21-2022 History of Present illness Narrative [facility] - FOLLOW UP EVALUATION Nubia Burnette [address] [facility] [address] [address] Whittaker MD [address] [facility] [id number] I had the pleasure of seeing Mr. Quevedo for follow up today. He is a 77 year old right-handed male with a history of PD since 2019. He is seen with his . Subjective Previous Plan-12/05/2021 Visit for the PD - continue with medications and exercise Interested in clinical research? Not currently Interval History: Overall doing well. Tolerates sinemet well with no side effects. Slight progression with R sided tremors. Word finding difficulties. Exercises everyday. Mood: is good Sleep: great, mild RBD Constipation: no Parkinson's Medication Schedule - as of the start of the visit: Medications 8AM 1PM 4:30 PM Levodopa 100 mg 1.5 1.5 1.5 Lexapro 10 mg 1 Parkinson's Motor Complications Medication benefit onset: unclear Medication duration: unclear Wearing off: no Painful off-state dystonia: no Dyskinesia: no Prior Anti-Parkinson Therapies none Questionnaires Mood/Behavior Depression: PHQ-9 Score: 4 usually representing no significant (0-4) depression. Anxiety: JOAQUIN-7 Total Score: 0 usually representing no significant (0-4) anxiety. Finally, the following table shows the patient's overall global physical and mental health using the PROMIS scale: PROMIS-10 Flowsheet Row Office Visit from 08/21/2022 in [facility] Appointment from 06/11/2022 in [facility] Global Physical Health T Score 57.7 57.7 Global Mental Health T Score 62.5 62.5 0-10 Standard Pain Scale 5 5 *PROMIS-10 scoring scale: mean = 50, over 50 is above average, under 50 is below average In addition, the following Parkinson Lifestyle-associated features were evaluated: Conditions Prior to Dx: Depression: No Anxiety: Yes Melanoma: No Constipation: No Yelling: No Head Trauma: No Habits/exposures Prior to Dx Smoking: Caffeinated coffee (1-cup+): Caffeinated soda/tea (2 cups+): Alcohol (1 bottle/shot/glass+): Exercise (3x/wk+): Ibuprofen use (1x/wk+): Pesticides: Welding: ALLERGIES No Known Allergies Current Outpatient Medications Medication Sig atorvastatin (LIPITOR) 20 mg tablet Take 1 tablet by mouth daily at bedtime. tamsulosin (FLOMAX) 0.4 mg Take 1 capsule by mouth once daily. escitalopram oxalate (LEXAPRO) 10 mg tablet Take 1 tablet by mouth once daily. ascorbic acid (VITAMIN C ORAL) Take by mouth once daily. Cholecalciferol, Vitamin D3, 25 mcg (1,000 unit) cap Take 1,000 Units by mouth once daily. multivitamin tablet Take 1 tablet by mouth once daily. carbidopa-levodopa (SINEMET) 25-100 mg per tablet Take 2 tablets in the morning, 1.5 tablets at noon, 1.5 tablets in the evening No current facility-administered medications for this visit. Objective Vital Signs: BP 132/72 (BP Site: Left Arm, BP Position: Sitting, BP Cuff Size: Regular Adult) Pulse 74 Wt 86.1 kg (189 lb 14.4 oz) SpO2 97% BMI 27.25 kg/m Orthostatic Vitals: Sitting: BP 132/72 Pulse 77 Standing: BP 111/71 Pulse 81 Weight: 86.1 kg (189 lb 14.4 oz) No LMP for male patient. Body mass index is 27.25 kg/m . General Physical Examination: General appearance: Awake, alert, interactive, no acute distress, good nutritional status, normal development, well-groomed Skin: Rash: absent Pigmentation: absent HEENT: Head: normocephalic, no dysmorphism Eyes: normal Oropharynx: normal Neck: Carotid bruit: absent Movements: free Lymphadenopathy: absent Extremities: Deformity/contracture: absent Distal pulses: present Edema: absent Trophic change: absent Spine: Deformity: absent Heart: Regular S1 S2 normal Lungs: Clear to auscultation Abdomen: Soft, nontender General Neurological Examination: Neurological Exam Mental Status Awake, alert and oriented to person, place and time. Speech is normal. Language is fluent with no aphasia. Cranial Nerves CN II: Visual acuity is normal. Visual casiano full to confrontation. CN III, IV, : Extraocular movements intact bilaterally. Normal lids and orbits bilaterally. Pupils equal round and reactive to light bilaterally. CN V: Facial sensation is normal. CN VII: Full and symmetric facial movement. CN VIII: Hearing is normal. CN IX, X: Palate elevates symmetrically. Normal gag reflex. CN XI: Shoulder shrug strength is normal. CN XII: Tongue midline without atrophy or fasciculations. Motor Normal muscle bulk throughout. No fasciculations present. Increased muscle tone. R>L rigidity . Mild fast frequency resting tremors- intermittent. Strength is 5/5 throughout all four extremities. Sensory Sensation is intact to light touch, pinprick, vibration and proprioception in all four extremities. Reflexes Deep tendon reflexes are 2+ and symmetric in all four extremities. Coordination [id number], rapid alternating movements and eeoc-ag-harp normal bilaterally without dysmetria. Gait Stooped posture- good arm swing, normal base and speed . Movement Disorders Cognitive and Motor Biomeasures: Processing Speed Test Total Number Correct:38; Z Score: 0.5 Visual Memory Test Raw Score: 39; Z Score: -0.08 Manual Dexterity Test (max = 180 secs) Left Hand Time: 28.29; Right Hand Time: 38.48 Walking Speed Test (25 foot walk): 5.75 *Z score interpretation: higher than -1.5 is within normal; -1.5 to -2.0 represents mild impairment; lower than -2.0 represents significant impairment Movement Disorders Scales Performed: MDS-UPDRS Motor subscale condition of exam Medication Off/On/Naiive ON Time of UPDRS 1429 Time of Last Medication 1200 Last Medication Taken sinemet 1.5 tabs DBS Right N/A DBS Left N/A MDS-UPDRS Motor subscale scores Speech 0-Normal. No speech problems. Facial Expression 1-Slight. Minimal masked facies manifested only by decreased frequency of blinking. Rigidity Neck 1-Slight. Rigidity only detected with activation maneuver. Rigidity Right Upper Extremity 2-Mild. Rigidity detected without the activation maneuver, but full range of motion is easily achieved. Rigidity Left Upper Extremity 1-Slight. Rigidity only detected with activation maneuver. Rigidity Right Lower Extremity 2-Mild. Rigidity detected without the activation maneuver, but full range of motion is easily achieved. Rigidity Left Lower Extremity 1-Slight. Rigidity only detected with activation maneuver. Finger Taps Right 1-Slight. a) the regular rhythm is broken with one or two interruptions or hesitations of the tapping movement, b) slight slowing, c) the amplitude decrements near the end of the 10 taps. Finger Taps Left 2-Mild. a) 3 to 5 interruptions during tapping, b) mild slowing, c) the amplitude decrements midway in the 10-tap sequence. Hand Movements Right 1-Slight. a) the regular rhythm is broken with one or two interruptions or hesitations of the movement, b) slight slowing, c) the amplitude decrements near the end of the task. Hand Movements Left 1-Slight. a) the regular rhythm is broken with one or two interruptions or hesitations of the movement, b) slight slowing, c) the amplitude decrements near the end of the task. Arm Movements Right 0-Normal. No problems. Arm Movements Left 0-Normal. No problems. Toe Taps Right 2-Mild. a) 3 to 5 interruptions during the tapping movements, b) mild slowing, c) the amplitude decrements midway in the task. Toe Taps Left 2-Mild. a) 3 to 5 interruptions during the tapping movements, b) mild slowing, c) the amplitude decrements midway in the task. Leg Agility Right 1-Slight. a) the regular rhythm is broken with one or two interruptions or hesitations of the movement, b) slight slowing, c) the amplitude decrements near the end of the task. Leg Agility Left 1-Slight. a) the regular rhythm is broken with one or two interruptions or hesitations of the movement, b) slight slowing, c) the amplitude decrements near the end of the task. Arise From Chair 0-Normal. No problems. Able to arise quickly without hesitation. Gait 1-Slight. Independent walking with minor gait impairment. Gait Freezing 0-Normal. No freezing. Posture Stability 0-Normal. No problems: recovers with one or two steps. Posture 1-Slight. Not quite erect, but posture could be normal for older person. Body Bradykinesia 0-Normal. No problems. Postural Tremor Hand Right 0-Normal. No tremor. Postural Tremor Hand Left 0-Normal. No tremor. Kinetic Tremor Right 1-Slight. Tremor is present but less than 1cm in amplitude. Kinetic Tremor Left 0-Normal. No tremor. Rest Tremor Amplitude Right Upper Extremity 0-Normal. No tremor. Rest Tremor Amplitude Left Upper Extremity 1-Slight. < 1 cm in maximal amplitude. Rest Tremor Amplitude Right Lower Extremity 0-Normal. No tremor. Rest Tremor Amplitude Right Lower Extremity 0-Normal. No tremor. Rest Tremor Amplitude Lip/Jaw 0-Normal. No tremor. Rest Tremor Constancy 1-Slight. Tremor at rest is present < 25% of the entire examination period. MDS-UPDRS Motor subscale totals Left Total 9 Right Total 10 Midline Total 4 Tremor Total / 10 3 PIGD Total / 3 1 Overall Total 24 % Change Compared to Last Filed Total Assessment and Plan: Assessment Mr. Quevedo is a right-handed 77 year old year old male with History of PD since 2019. Doing well overall with some increased tremor, problems with dexterity specially with R hand. Also endorses some word finding difficulties. 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 Not currently Updated Parkinson's Medication Schedule: Medications 8AM 1PM 4:30 PM Levodopa 100 mg 2 1.5 1.5 Lexapro 10 mg 1 Thank you for allowing me to be part of the clinical care of this patient! I look forward to continued participation in the patient s care with you. Please do not hesitate to call with any questions. 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 cane, walker, wheelchair, person) to walk or move around?: No assistance at all Top 3 Concerns (Submitted on 08/14/2022) FMD 1st concern: Do pills help? 2.: NA 3.: NA Neurology attending addendum: I personally saw and examined the patient with the Fellow. The case and management was discussed in detail. I agree with the above note regarding the patient's: Parkinson's disease (hcc) (primary encounter diagnosis) [place] Level of service : 27064 ( 30-39 min). Time spent 30 min on the day of service, which included preparing to see the patient, [id number] patient care, completing clinical documentation, obtaining and/or reviewing separately obtained history, performing a medically appropriate examination, and counseling and educating the patient/family/caregiver. MD Marko Arizmendi and Hillary Anderson Endowed Chair in Movement Disorders Director, [facility], [facility] tax consultant (Neurology), [facility] documented in this encounter [facility] 05-12-2022 Miscellaneous Notes Pt notified via [employer]. Xiao Moralez Ma Due for follow-up. Please assist in scheduling. Stefani Ornelas APRN.CNP Last office visit: 05/31/21 F/u scheduled: none Xiao Moralez Ma Patient has been identified by name and date of : Yes Pending Prescriptions Disp Refills ATORVASTATIN 20 MG TABLET 90 tablet 1 Sig: Take 1 tablet by mouth daily at bedtime. GUDELIA: No RX INSTRUCTIONS: Patient aware RX will be sent to pharmacy. No need to notify patient. Hasmukh Allen Pss documented in this encounter [facility] 05-12-2022 Miscellaneous Notes Last office visit: 05/31/21 F/u scheduled: none Xiao Moralez Ma Patient has been identified by name and date of : Yes Pending Prescriptions Disp Refills TAMSULOSIN 0.4 MG CAPSULE 180 capsule 3 Sig: Take 1 capsule by mouth once daily. GUDELIA: No RX INSTRUCTIONS: Patient aware RX will be sent to pharmacy. No need to notify patient. Hasmukh Allen Pss documented in this encounter [facility] 01-06-2022 Miscellaneous Notes COREY 05/31/21 NOV not scheduled at this time Joanna Castano Ma Patient has been identified by name and date of : Yes Pending Prescriptions Disp Refills ESCITALOPRAM 10 MG TABLET 90 tablet 3 Sig: Take 1 tablet by mouth once daily. GUDELIA: No RX INSTRUCTIONS: Patient aware RX will be sent to pharmacy. No need to notify patient. Sommer Herndon documented in this encounter [facility] 05-16-2019 History of Past i llness Narrative Problem Noted Date Resolved Date PD (Parkinson's disease) 05/16/2019 019 documented as of this encounter (statuses as of 01/08/2022) [address] History of Past illness Narrative* Problem Noted Date Resolved Date PD (Parkinson's disease) 05/16/2019 019 documented as of this encounter (statuses as of 05/12/2022) [address] History of Past illness Narrative* Problem Noted Date Resolved Date PD (Parkinson's disease) 05/16/2019 019 documented as of this encounter (statuses as of 05/12/2022) [address] History of Past illness Narrative* Problem Noted Date Resolved Date PD (Parkinson's disease) 05/16/2019 019 documented as of this encounter (statuses as of 08/26/2022) [address] History of Past illness Narrative* Problem Noted Date Resolved Date PD (Parkinson's disease) 05/16/2019 019 documented as of this encounter (statuses as of 10/27/2022) [address] History of Past illness Narrative* Problem Noted Date Resolved Date PD (Parkinson's disease) 05/16/2019 019 documented as of this encounter (statuses as of 10/28/2022) [address] History of Past illness Narrative* Problem Noted Date Resolved Date PD (Parkinson's disease) 05/16/2019 019 documented as of this encounter (statuses as of 10/29/2022) [address] History of Past illness Narrative* Problem Noted Date Resolved Date PD (Parkinson's disease) 05/16/2019 019 documented as of this encounter (statuses as of 12/01/2022) [address] History of Past illness Narrative* Problem Noted Date Resolved Date PD (Parkinson's disease) 05/16/2019 019 documented as of this encounter (statuses as of 12/02/2022) [address] History of Past illness Narrative* Problem Noted Date Resolved Date PD (Parkinson's disease) 05/16/2019 019 documented as of this encounter (statuses as of 12/03/2022) [address] History of Past illness Narrative* Problem Noted Date Resolved Date PD (Parkinson's disease) 05/16/2019 019 documented as of this encounter (statuses as of 12/05/2022) [address] History of Past illness Narrative* Problem Noted Date Resolved Date PD (Parkinson's disease) 05/16/2019 019 documented as of this encounter (statuses as of 12/23/2022) [address] History of Past illness Narrative* Problem Noted Date Resolved Date PD (Parkinson's disease) 05/16/2019 019 documented as of this encounter (statuses as of 12/31/2022) [address] History of Past illness Narrative* Problem Noted Date Resolved Date PD (Parkinson's disease) 05/16/2019 019 documented as of this encounter (statuses as of 01/06/2023) [address]05-2019 History of Past illness Narrative* Problem Noted Date Resolved Date PD (Parkinson's disease) 05/16/2019 019 documented as of this encounter (statuses as of 01/22/2023) [address]05-2019 History of Past illness Narrative* Problem Noted Date Resolved Date PD (Parkinson's disease) 05/16/2019 019 documented as of this encounter (statuses as of 01/23/2023) [address]05-2019 History of Past illness Narrative* Problem Noted Date Resolved Date PD (Parkinson's disease) 05/16/2019 019 documented as of this encounter (statuses as of 02/11/2023) [address]05-2019 History of Past illness Narrative* Problem Noted Date Resolved Date PD (Parkinson's disease) 05/16/2019 019 documented as of this encounter (statuses as of 03/18/2023) [address]05-2019 History of Past illness Narrative* Problem Noted Date Resolved Date PD (Parkinson's disease) 05/16/2019 019 documented as of this encounter (statuses as of 04/16/2023) [place] [address]05-2019 History of Past illness Narrative* Problem Noted Date Resolved Date PD (Parkinson's disease) 05/16/2019 019 documented as of this encounter (statuses as of 04/17/2023) [place] [address]05-2019 History of Past illness Narrative* Problem Noted Date Diagnosed Date Resolved Date PD (Parkinson's disease) 05/16/201901/2019 documented as of this encounter (statuses as of 05/12/2023) [facility] History of Past illness Narrative* Problem Noted Date Diagnosed Date Resolved Date PD (Parkinson's disease) 05/16/201901/2019 documented as of this encounter (statuses as of 09/21/2023) [facility]-2019 History of Past illness Narrative* Problem Noted Date Diagnosed Date Resolved Date PD (Parkinson's disease) 05/16/201901/2019 Deep vein thrombosis (DVT) o f left lower extremity 03/14/2019 10/01/2023 documented as of this encounter (statuses as of 10/02/2023) [place] [address]05-2019 History of Past illness Narrative* Problem Noted Date Diagnosed Date Resolved Date PD (Parkinson's disease) 05/16/201901/2019 Deep vein thrombosis (DVT) o f left lower extremity 03/14/2019 10/01/2023 documented as of this encounter (statuses as of 01/05/2024) [facility] Anxiety Anxiety state, unspecified [facility] Diagnosis Enlarged prostate Hypertrophy of prostate without urinary obstruction and other lower urinary tract symptoms (LUTS) [facility] Diagnosis Parkinson's disease (HCC)- Primary Paralysis agitans Camptocormia Conversion disorder [facility] Diagnosis Pure hypercholesterolemia- Primary Concern about skin cancer without diagnosis Person with feared complaint in whom no diagnosis was made Major depressive disorder, remission status unspecified, unspecified whether recurrent Parkinson's disease (HCC) Paralysis agitans AK (actinic keratosis) Actinic keratosis [facility] Diagnosis Painful urination- Primary Dysuria URI, acute Acute upper respiratory infections of unspecified site Bilirubinuria Biliuria Acute cystitis with hematuria Acute cystitis [facility] Diagnosis Acute cystitis with hematuria- Primary Acute cystitis Genitourinary complaints Other symptoms involving urinary system [facility] Diagnosis AK (actinic keratosis)- Primary Actinic keratosis Seborrheic keratosis Other seborrheic keratosis Hernandez angioma Nevus, non-neoplastic Skin pain Disturbance of skin sensation [facility] Diagnosis Anxiety Anxiety state, unspecified [facility] Diagnosis Parkinson's disease (HCC)- Primary Paralysis agitans Orthostatic dizziness Urgency of urination Camptocormia Conversion disorder RBD (REM behavioral disorder) REM sleep behavior disorder [facility] Diagnosis Frequent urination- Primary Urinary frequency [facility] Diagnosis Skin pain- Primary Disturbance of skin sensation [facility] Diagnosis Travel advice encounter- Primary Other specified counseling [facility] Diagnosis Need for vaccination- Primary Need for prophylactic vaccination and inoculation against unspecified single disease [facility] Diagnosis Epigastric pain- Primary Abdominal pain, epigastric [facility] Diagnosis Rib injury- Primary Sprain of ribs [facility] Diagnosis Upper back pain on left side- Primary Pain in thoracic spine Rib pain on left side Chest pain, unspecified [facility] Diagnosis Parkinson's disease without dyskinesia or fluctuating manifestations (HCC)- Primary RBD (REM behavioral disorder) REM sleep behavior disorder Constipation, unspecified constipation type [facility] Diagnosis Breast mass in male- Primary Lump or mass in breast Disorder of breast, unspecified Other signs and symptoms in breast Anxiety Anxiety state, unspecified Parkinson's disease without dyskinesia or fluctuating manifestations (HCC) Pure hypercholesterolemia Enlarged prostate Hypertrophy of prostate without urinary obstruction and other lower urinary tract symptoms (LUTS) [facility] Diagnosis Breast mass in male- Primary Lump or mass in breast Gynecomastia, male Hypertrophy of breast [facility] Diagnosis Breast mass in male Lump or mass in breast Disorder of breast, unspecified [facility] Diagnosis Breast mass in male Lump or mass in breast Disorder of breast, unspecified [facility] Diagnosis Subareolar mass of right breast Abnormal ultrasound of breast Other (abnormal) findings on radiological examination of breast [facility] Diagnosis Upper back pain on left side Pain in thoracic spine [facility] Diagnosis Subareolar mass of right breast Abnormal ultrasound Other nonspecific (abnormal) findings on radiological and other examinations of body structure [facility] Diagnosis Malignant neoplasm of central portion of right breast in male, estrogen receptor positive (HCC)- Primary [facility] Diagnosis Malignant neoplasm of central portion of right breast in male, estrogen receptor positive (HCC)- Primary Invasive ductal carcinoma of breast, right (HCC) Subareolar mass of right breast Abnormal ultrasound Other nonspecific (abnormal) findings on radiological and other examinations of body structure [facility] Diagnosis Word finding difficulty- Primary Problems with communication (including speech) Parkinson's disease without dyskinesia or fluctuating manifestations (HCC) [facility]* Diagnosis Invasive ductal carcinoma of breast, right (HCC) [facility] Diagnosis Invasive ductal carcinoma of right breast (HCC)- Primary [facility] Diagnosis Invasive ductal carcinoma of breast, right (HCC) [facility] Diagnosis Invasive ductal carcinoma of breast, right (HCC)- Primary documented in this encounter [facility] (narrative)* Diagnostic Procedure Only (Urgent) - Closed Specialty Diagnoses / Procedures Referred By Lexy t Referred To Contact XR IMAGING Diagnoses Rib injury Procedures XR RIBS/CHEST 3V AP RIB/OBLS/CXR LEFT RADEX RIBS UNI W/POSTEROANT CH MINIMUM 3 VIEWS Skip Lawler APRN.RAMP BOSS [address] [place] [address] Xr Imaging [facility]95 Referral ID Status Reason Start Date Expiration Date V isits Requested Visits Authorized [id number] Closed Auto-Generate d Referral 09/21/2023 10/20/2024 1 1 [facility] for referral (narrative)* Diagnostic Procedure Only (Urgent) - Authorized Specialty Diagnoses / Procedures Referred By Contac t Referred To Contact BR IMAGING Diagnoses Breast mass in male Disorder of breast, unspecified Procedures VIOLETTA DIAGNOSTIC RIGHT DIAGNOSTIC MAMMOGRAPHY COMPUTER-AIDED DETCJ UNI Evans Whittaker MD [address] [place] [address] [facility] [address] [place] [id number] Referral ID Status Reason Start Date Expiration Date Visits Requested Visits Authorized [id number] Authorized Auto-Generat ed Referral 05/10/2024 06/09/2025 1 1 * Diagnostic Procedure Only (Urgent) - New Request Specialty Diagnoses / Procedures Referred By Lexy t Referred To Contact BR IMAGING Diagnoses Breast mass in male Disorder of breast, unspecified Procedures US BREAST LTD RIGHT US BREAST UNI REAL TIME WITH IMAGE LIMITED Evans Whittaker MD [address] [place] [address] [facility] [address] [place] [address] Referral ID Status Reason Start Date Expiration Date Visits Requested Visits Authorized [id number] New Request Auto-Generat ed Referral 05/10/2024 06/09/2025 1 1 [facility] for referral (narrative)* Diagnostic Procedure Only (Urgent) - New Request Specialty Diagnoses / Procedures [facility] To Contact US IMAGING Diagnoses Breast mass in male Gynecomastia, male Procedures US DOPPLER COMPLETE DUP-SCAN ARTL DEIRDRE ABDL/PEL/SCROT&/RPR ORGN [facility] Evans Whittaker MD [address] [place] [address] [place] [address] Referral ID Status Reason Start Date Expiration Date Visits Requested Visits Authorized [id number] New Request Auto-Generat ed Referral 05/23/2024 06/22/2025 1 1 * Diagnostic Procedure Only (Urgent) - New Request Specialty Diagnoses / Procedures Referred By Lexy mulligan Referred To Contact US IMAGING Diagnoses Breast mass in male Gynecomastia, male Procedures US SCROTUM AND CONTENTS US SCROTUM & CONTENTS Evans Whittaker MD [address] [place] [address] [place] [address] Referral ID Status Reason Start Date Expiration Date Visits Requested Visits Authorized [id number] New Request Auto-Generat ed Referral 05/23/2024 06/22/2025 1 1 [facility] for referral (narrative)* Diagnostic Procedure Only (Urgent) - Closed Specialty Diagnoses / Procedures Referred By Lexy mulligan Referred To Contact BR IMAGING Diagnoses Breast mass in male Disorder of breast, unspecified Procedures US BREAST LTD RIGHT US BREAST UNI REAL TIME WITH IMAGE LIMITED Evans Whittaker MD [address] [place] [address] [facility] [address] [place] [address] Referral ID Status Reason Start Date Expiration Date V isits Requested Visits Authorized [id number] Closed Auto-Generate d Referral 05/10/2024 06/09/2025 1 1 [facility] for referral (narrative)* Diagnostic Procedure Only (Routine) - Closed Specialty Diagnoses / Procedures Referred By Lexy mulligan Referred To Contact XR IMAGING Diagnoses Upper back pain on left side Procedures XR THORACIC GENERAL 3V AP/LAT/SWIMMERS RADEX SPINE THORACIC 3 VIEWS Evans Whittaker MD [address] [place] [address] [facility] [address] Referral ID Status Reason Start Date Expiration Date V isits Requested Visits Authorized [id number] Closed Auto-Generate d Referral 09/28/2023 10/27/2024 1 1 [facility] for referral (narrative)* Diagnostic Procedure Only (Routine) - Closed Specialty Diagnoses / Procedures Referred By Lexy t Referred To Contact BR IMAGING Diagnoses Invasive ductal carcinoma of breast, right (HCC) Procedures US AXILLA ONLY RIGHT US LMTD JOINT/OTH NONVASC XTR STRUX R-T W/IMG Boby Romano DO [address] [place] [address] [facility] [address] [place] [address] Referral ID Status Reason Start Date Expiration Date V isits Requested Visits Authorized [id number] Closed Auto-Generate d Referral 07/06/2024 08/05/2025 1 1 [facility] for visit Narrative* Diagnostic Procedure Only (Urgent) - Closed Specialty Diagnoses / Procedures Referred By Lexy mulligan Referred To Contact BR IMAGING Diagnoses Breast mass in male Disorder of breast, unspecified Procedures US BREAST LTD RIGHT US BREAST UNI REAL TIME WITH IMAGE LIMITED Evans Whittaker MD [facility] [place] [address] [facility] [address] [place] [address] Referral ID Status Reason Start Date Expiration Date V isits Requested Visits Authorized [id number] Closed Auto-Generate d Referral 05/10/2024 06/09/2025 1 1 [facility] for visit Narrative* Diagnostic Procedure Only (Urgent) - Closed Specialty Diagnoses / Procedures Referred By Lexy mulligan Referred To Contact BR IMAGING Diagnoses Breast mass in male Disorder of breast, unspecified Procedures VIOLETTA DIAGNOSTIC RIGHT DIAGNOSTIC MAMMOGRAPHY COMPUTER-AIDED DETCJ UNI Evans Whittaker MD [address] [place] [address] [facility] [address] [place] [address] Referral ID Status Reason Start Date Expiration Date V isits Requested Visits Authorized [id number] Closed Auto-Generate d Referral 05/10/2024 06/09/2025 1 1 [facility] for visit Narrative* Diagnostic Procedure Only (Urgent) - Closed Specialty Diagnoses / Procedures Referred By Contac t Referred To Contact XR IMAGING Diagnoses Rib injury Procedures XR RIBS/CHEST 3V AP RIB/OBLS/CXR LEFT RADEX RIBS UNI W/POSTEROANT CH MINIMUM 3 VIEWS Skip Lawler, MELVIN.R[address]OSS [address] [place] [address] [place] [address] Referral ID Status Reason Start Date Expiration Date V isits Requested Visits Authorized [id number] Closed Auto-Generate d Referral 09/21/2023 10/20/2024 1 1 [facility] for visit Narrative* Diagnostic Procedure Only (Routine) - Closed Specialty Diagnoses / Procedures Referred By Contac t Referred To Contact XR IMAGING Diagnoses Upper back pain on left side Procedures XR THORACIC GENERAL 3V AP/LAT/SWIMMERS RADEX SPINE THORACIC 3 VIEWS Evans Whittaker MD [address] [place] [address] [place] [address] Referral ID Status Reason Start Date Expiration Date V isits Requested Visits Authorized [id number] Closed Auto-Generate d Referral 09/28/2023 10/27/2024 1 1 [facility] Advance Directives No Advanced Directives Records FoundDocuments on File Type Date 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 Advance Directive(s) 10/18/2021 8:32 AM Advance Directive(s) 10/03/2021 9:41 AM Advance Directive(s) 09/18/2021 5:37 PM Advance Directive(s) 05/04/2018 6:04 AM Advance Directive(s) 04/15/2018 4:18 PM Documents on File Type Date 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 Advance Directive(s) 09/18/2021 5:37 PM Documents on File Type Date 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 Advance Directive(s) 09/18/2021 5:37 PM Documents on File Type Date 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 Advance Directive(s) 11/12/2023 8:43 AM Documents on File Type Date 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 Advance Directive(s) 11/12/2023 8:43 AM Reason for Referral Specialty Diagnoses / Procedures Referred By Contac t Referred To Contact Diagnoses Concern about skin cancer without diagnosis AK (actinic keratosis) Procedures CONSULT TO DERMATOLOGY [facility], DONTE Ko [address] [place] [address] Referral ID Status Reason Start Date Expiration Date Visits Requested Visits Authorized [id number] Ref Not Required PCP Requested Referral 10/28/2022 10/28/2023 1 1 Specialty Diagnoses / Procedures Referred By Contac t Referred To Contact Diagnoses Travel advice encounter Evans Whittaker MD [address] [place] [address] Referral ID Status Reason Start Date Expiration Date Visits Re quested Visits Authorized [id number] Closed 1 1 Specialty Diagnoses / Procedures Referred By Contac t Referred To Contact [facility] Diagnoses Upper back pain on left side Procedures CONSULT TO PHYSICAL THERAPY PHYSICAL THERAPY EVALUATION HIGH COMPLEX 45 MINS Evans Whittaker MD [address] [place] [address] [facility] [address] [place] [address] Referral ID Status Reason Start Date Expiration Date Visits Requested Visits Authorized [id number] Authorized PCP Requested Referral Auto-Generate d Referral 09/27/2024 99 99 Specialty Diagnoses / Procedures Referred By Contac t Referred To Contact XR IMAGING Diagnoses Upper back pain on left side Procedures XR THORACIC GENERAL 3V AP/LAT/SWIMMERS RADEX SPINE THORACIC 3 VIEWS Evans Whittaker MD [address] [place] [address] [place] [address] Referral ID Status Reason Start Date Expiration Date V isits Requested Visits Authorized [id number] Closed Auto-Generate d Referral 09/28/2023 10/27/2024 1 1 Specialty Diagnoses / Procedures Referred By Contac t Referred To Contact Diagnoses Parkinson's disease without dyskinesia or fluctuating manifestations (HCC) Procedures PROVIDER ORDERED FOLLOW UP OFFICE/OUTPATIENT NEW HIGH MDM 60 MINUTES Shaneka Friend MD [address] [place] [address] Referral ID Status Reason Start Date Expiration Date Visits Requested Visits Authorized [id number] Authorized PCP Requested Referral 07/01/2024 12/29/2024 1 1 Specialty Diagnoses / Procedures Referred By Contac t Referred To Contact Radiation Oncology Diagnoses Invasive ductal carcinoma of breast, right (HCC) Procedures RAD/ONC CONSULT OFFICE/OUTPATIENT NEW HIGH MDM 60 MINUTES Kieran Romanoin C, DO [address] [place] [address] Referral ID Status Reason Start Date Expiration Date Visits Requested Visits Authorized [id number] Authorized PCP Requested Referral 07/06/2024 07/06/2025 1 1 Specialty Diagnoses / Procedures Referred By Contac t Referred To Contact Oncology Diagnoses Invasive ductal carcinoma of breast, right (HCC) Procedures CONSULT TO ONCOLOGY OFFICE/OUTPATIENT NEW HIGH MDM 60 MINUTES Kieran Romanoin C, DO [address] [place] [address] Referral ID Status Reason Start Date Expiration Date Visits Requested Visits Authorized [id number] Authorized PCP Requested Referral 07/06/2024 07/06/2025 1 1 Specialty Diagnoses / Procedures Referred By Contac t Referred To Contact BR IMAGING Diagnoses Invasive ductal carcinoma of breast, right (HCC) Procedures US AXILLA ONLY RIGHT US LMTD JOINT/OTH NONVASC XTR STRUX R-T W/IMG Delano Romanotlin C, DO [address] [place] [address] [facility] [address] [place] [address] Referral ID Status Reason Start Date Expiration Date Visits Requested Visits Authorized [id number] Authorized Auto-Generat ed Referral 07/06/2024 08/05/2025 1 1 Referral ID Status Reason Start Date Expiration Date Visits Requested Visits Authorized [id number] Authorized PCP Requested Referral 01/03/2025 07/06/2025 1 1 Specialty Diagnoses / Procedures Referred By Lexy t Referred To Contact Diagnoses Invasive ductal carcinoma of breast, right (HCC) Procedures CONSULT TO MEDICAL GENETICS - CANCER MEDICAL GENETICS COUNSELING EACH 30 MINUTES Diaz Cabrera DO [address] [place] [address] [facility] [address] [place] [address] Referral ID Status Reason Start Date Expiration Date Visits Requested Visits Authorized [id number] Pending Review PCP Requested Referral Auto-Generate d Referral 4 07/27/2025 1 1 Summary Purpose Family History No Family History Records FoundNo Family History Records FoundNo Family History Records Found Additional Source Comments Source Comments (unrecognize d section and content) In the event this informatio n is protected by the Federal Confidentiality of Alcohol and Drug Abuse Patient Records regulations: The Federal rules restrict any use of the information to criminally investigate or prosecute any alcohol or drug abuse patient.[facility] event this information is protected by the Federal Confidentiality of Alcohol and Drug Abuse Patient Records regulations: The Federal rules restrict any use of the information to criminally investigate or prosecute any alcohol or drug abuse patient.[facility] the event this information is protected by the Federal Confidentiality of Alcohol and Drug Abuse Patient Records regulations: The Federal rules restrict any use of the information to criminally investigate or prosecute any alcohol or drug abuse patient.[facility] the event this information is protected by the Federal Confidentiality of Alcohol and Drug Abuse Patient Records regulations: The Federal rules restrict any use of the information to criminally investigate or prosecute any alcohol or drug abuse patient.[facility] the event this information is protected by the Federal Confidentiality of Alcohol and Drug Abuse Patient Records regulations: The Federal rules restrict any use of the information to criminally investigate or prosecute any alcohol or drug abuse patient.[facility] the event this information is protected by the Federal Confidentiality of Alcohol and Drug Abuse Patient Records regulations: The Federal rules restrict any use of the information to criminally investigate or prosecute any alcohol or drug abuse patient.[facility] the event this information is protected by the Federal Confidentiality of Alcohol and Drug Abuse Patient Records regulations: The Federal rules restrict any use of the information to criminally investigate or prosecute any alcohol or drug abuse patient.[facility] the event this information is protected by the Federal Confidentiality of Alcohol and Drug Abuse Patient Records regulations: The Federal rules restrict any use of the information to criminally investigate or prosecute any alcohol or drug abuse patient.[facility] the event this information is protected by the Federal Confidentiality of Alcohol and Drug Abuse Patient Records regulations: The Federal rules restrict any use of the information to criminally investigate or prosecute any alcohol or drug abuse patient.[facility] the event this information is protected by the Federal Confidentiality of Alcohol and Drug Abuse Patient Records regulations: The Federal rules restrict any use of the information to criminally investigate or prosecute any alcohol or drug abuse patient.[facility] the event this information is protected by the Federal Confidentiality of Alcohol and Drug Abuse Patient Records regulations: The Federal rules restrict any use of the information to criminally investigate or prosecute any alcohol or drug abuse patient.[facility] the event this information is protected by the Federal Confidentiality of Alcohol and Drug Abuse Patient Records regulations: The Federal rules restrict any use of the information to criminally investigate or prosecute any alcohol or drug abuse patient.[facility] event this information is protected by the Federal Confidentiality of Alcohol and Drug Abuse Patient Records regulations: The Federal rules restrict any use of the information to criminally investigate or prosecute any alcohol or drug abuse patient.[facility]In the event this information is protected by the Federal Confidentiality of Alcohol and Drug Abuse Patient Records regulations: The Federal rules restrict any use of the information to criminally investigate or prosecute any alcohol or drug abuse patient.[facility] [place] [facility] HospitalIn the event this information is protected by the Federal Confidentiality of Alcohol and Drug Abuse Patient Records regulations: The Federal rules restrict any use of the information to criminally investigate or prosecute any alcohol or drug abuse patient.[facility] [place] [facility] HospitalIn the event this information is protected by the Federal Confidentiality of Alcohol and Drug Abuse Patient Records regulations: The Federal rules restrict any use of the information to criminally investigate or prosecute any alcohol or drug abuse patient.[facility] [place] [facility] HospitalIn the event this information is protected by the Federal Confidentiality of Alcohol and Drug Abuse Patient Records regulations: The Federal rules restrict any use of the information to criminally investigate or prosecute any alcohol or drug abuse patient.[facility] [place] [facility] HospitalIn the event this information is protected by the Federal Confidentiality of Alcohol and Drug Abuse Patient Records regulations: The Federal rules restrict any use of the information to criminally investigate or prosecute any alcohol or drug abuse patient.[facility] [place] [facility] HospitalIn the event this information is protected by the Federal Confidentiality of Alcohol and Drug Abuse Patient Records regulations: The Federal rules restrict any use of the information to criminally investigate or prosecute any alcohol or drug abuse patient.[facility] [place] [facility] HospitalIn the event this information is protected by the Federal Confidentiality of Alcohol and Drug Abuse Patient Records regulations: The Federal rules restrict any use of the information to criminally investigate or prosecute any alcohol or drug abuse patient.[facility] [place] [facility] HospitalIn the event this information is protected by the Federal Confidentiality of Alcohol and Drug Abuse Patient Records regulations: The Federal rules restrict any use of the information to criminally investigate or prosecute any alcohol or drug abuse patient.[facility] [place] [facility] HospitalIn the event this information is protected by the Federal Confidentiality of Alcohol and Drug Abuse Patient Records regulations: The Federal rules restrict any use of the information to criminally investigate or prosecute any alcohol or drug abuse patient.[facility] [place] [facility] HospitalIn the event this information is protected by the Federal Confidentiality of Alcohol and Drug Abuse Patient Records regulations: The Federal rules restrict any use of the information to criminally investigate or prosecute any alcohol or drug abuse patient.[facility] [place] [facility] HospitalIn the event this information is protected by the Federal Confidentiality of Alcohol and Drug Abuse Patient Records regulations: The Federal rules restrict any use of the information to criminally investigate or prosecute any alcohol or drug abuse patient.[facility] [place] [facility] HospitalIn the event this information is protected by the Federal Confidentiality of Alcohol and Drug Abuse Patient Records regulations: The Federal rules restrict any use of the information to criminally investigate or prosecute any alcohol or drug abuse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
[2024-08-02] MEDS: fentaNYL 100 MCG/2 ML Ampul 50 MCG IV (19:35)
--- NOTE | 2024-08-02 19:41 | EDS_ITS ---
HPI History of Present Illness Chief Complaint: Fall Informant: patient Narrative Narrative: Patient is a 79-year-old male with history of Parkinson's disease and BPH presenting for evaluation after fall. He was walking his dog today when his dog went to gerardo a rabbit. It jerked on his right shoulder quite hard and then he fell landing on his right side. He denies hitting his head. He denies any loss of conscious. He is not on any blood thinners. He is having significant pain of his right shoulder feels like there is a bump there. He is also having to lesser extent pain over his right ribs. He denies any shortness of breath or difficulty breathing. No other complaints or concerns at this time. Denies associate numbness or tingling. Did sustain a skin tear to his right wrist. [facility] Medical History BPH (benign prostatic hyperplasia) Parkinson's disease Home Medications ?Medication ?Instructions ?Recorded ?Last Taken ?Type ascorbic acid (vitamin C) 1,000 mg 1,000 mg PO DAILY 12/27/18 Unknown History tablet,extended release atorvastatin 20 mg tablet (Lipitor) 20 mg PO QHS CHOLESTEROL 12/27/18 01/05/19 History 2100 calcium carbonate 500 mg PO DAILY 12/27/18 Unknown History cholecalciferol (vitamin D3) 10 400 unit PO DAILY 12/27/18 Unknown History mcg (400 unit) tablet (Vitamin D3) escitalopram oxalate 10 mg tablet 10 mg PO QHS DEPRESSION 12/27/18 01/05/19 History 2100 glucosamine-chondroitin 500 mg-400 1 ea PO BID 12/27/18 Unknown History mg capsule multivitamin (Multiple Vitamins 1 ea PO DAILY 12/27/18 Unknown History tablet) tamsulosin 0.4 mg capsule 0.4 mg PO QHS URINATING 12/27/18 01/05/19 History 2100 acetaminophen 325 mg tablet 325 mg PO Q4H PRN PRN Pain 01/13/19 Unknown Rx (Tylenol) ibuprofen 400 mg tablet 400 mg PO Q6H PRN PRN Mild Pain 01/13/19 Unknown Rx (-12/19) carbidopa 25 mg-levodopa 100 mg tab 03/15/21 08/02/24 History tablet meclizine 25 mg tablet 25 mg PO TID PRN dizziness #14 tabs 03/15/21 Unknown Rx ciprofloxacin HCl 500 mg tablet 500 mg PO BID #14 TABLETS 12/03/22 Unknown Rx Allergy/AdvReac Type Severity Reaction Status Date / Time No Known Allergies Allergy Verified 08/02/24 17:19 Social History Smoking Status: Former smoker ROS ROS ED Constitutional Constitutional ED: Denies chills or fever(s) Eyes Eyes: Denies change in vision ENT ENT ED: Denies rhinorrhea or sore throat Cardiovascular Cardiovascular: Reports chest pain and other Details: right sided rib pain Respiratory/Chest Respiratory/Chest: Denies cough or dyspnea Gastrointestinal Gastrointestinal: Denies abdominal pain, nausea or vomiting Musculoskeletal Musculoskeletal: Reports other Details: right shoulder pain Integumentary Reports Abrasions Neurologic Neurologic: Denies headache(s), paresthesias or weakness Psychiatric Psychiatric: Denies anxiety Hematologic/Lymphatic Hematologic/Lymphatic: Denies easy bleeding or easy bruising EXAM Physical Exam Const Vital Signs: 08/02/24 17:16 08/02/24 18:40 08/02/24 18:43 Temperature 98.8 F Temperature Source Oral Pulse Rate 80 72 Respiratory Rate 16 19 H Respiratory Effort Short of Breath Respiratory Depth Shallow Blood Pressure 119/73 166/94 H Blood Pressure Mean 88 118 Pulse Ox 98 97 95 Oxygen Delivery Method Room Air Room Air Room Air Oxygen Flow Rate (L/min) 08/02/24 18:54 08/02/24 19:43 08/02/24 21:00 Temperature Temperature Source Pulse Rate 88 89 Respiratory Rate 26 H 20 H Respiratory Effort Respiratory Depth Blood Pressure 163/96 H 142/89 H Blood Pressure Mean 118 106 Pulse Ox 97 100 100 Oxygen Delivery Method Non-Rebreather Non-Rebreather Non-Rebreather Oxygen Flow Rate (L/min) 08/02/24 23:00 08/02/24 23:54 Temperature 98.5 F Temperature Source Pulse Rate 89 91 Respiratory Rate 22 H 25 H Respiratory Effort Respiratory Depth Blood Pressure 140/89 H 140/89 H Blood Pressure Mean 106 106 Pulse Ox 99 99 Oxygen Delivery Method Non-Rebreather Oxygen Flow Rate (L/min) 15 Positive well nourished and well developed General Appearance ED: well developed and NAD HEENT Reports TM's clear atraumatic Nose: Negative for septum abnormal Tympanic Membrane ED: Yes TM's clear Eyes PERRL Neck full ROM General: Negative for tenderness Chest Wall inspection of chest normal Chest Narrative: No chest wall crepitus appreciated. Tender palpation over the right superior anterior chest wall Resp normal respiratory effort and clear to auscultation bilaterally Effort and Inspection: pain with movement Cardio regular rhythm and no murmurs Rate: regular rate GI normal to inspection, nondistended, normoactive bowel sounds and non-tender Back/Spine normal to inspection and no thoracic nor lumbar tenderness Extremity full ROM Extremity Narrative: Swelling of the right shoulder consistent with possible AC joint separation. Range of motion preserved of the shoulder. No deformity of anterior clavicle. General Extremety ED: Yes deformity General Extremity: deformity Neuro oriented x3, moves all extremities, no focal motor deficits and no sensory deficits noted Mikhail Coma Scale: document GCS findings Spontaneous Obeys Commands Oriented 15 Sensorium / Orientation: alert Psych mental status grossly normal and thought process normal Skin Skin Narrative: Superficial abrasion of the right posterior shoulder. 1 cm 1 cm skin tear of the right wrist on the dorsal aspect MDM MDM MDM Narrative Medical decision making narrative: Patient presents with right shoulder injury after a fall. Is not on any blood thinners. Protocol x-ray of the right humerus and shoulder do not show upper extremity fracture but do show rib fractures, chest wall gas and right pneumothorax. Patient is hemodynamically stable. Patient's brought back to the emergency room and evaluated. He is placed on nonrebreather to help with his pneumothorax. CT of the chest is obtained in addition to CT of the head and C- spine given his fall and distracting injuries. Patient has normal neurologic exam and overall is quite well-appearing. Patient is given IV fentanyl for pain control initially with improvement of pain. CT of the chest shows 5th through 8th rib fractures with 2 fractures in the sixth and seventh ribs, 15% pneumothorax and right hemothorax. There is also a T6 compression fractures patient is aware of. Given his significant traumatic injuries I do think patient benefit from trauma facility. Patient is given further Lidoderm patch for pain control and oral oxycodone. I spoke with Dr. Razo at [facility] Who accepts the patient as a trauma transfer. I did review the CT images myself and there does appear to be an AC joint separation with the patient was informed of. Patient and are agreeable to transfer. He remains hemodynamically stable at time of transfer. Lab Data Labs: Laboratory Results - last 24 hr 08/02/24 18:45 WBC 7.3 RBC 4.49 L Hgb 14.6 Hct 44.8 MCV 99.8 H MCH 32.5 H MCHC 32.6 RDW Std Deviation 44.0 H RDW Coeff of [place] 12.0 Plt Count 209 MPV 10.1 Immature Gran % (Auto) 0.500 Neut % (Auto) 64.1 Lymph % (Auto) 24.4 Dade % (Auto) 8.6 Eos % (Auto) 1.9 Baso % (Auto) 0.5 Absolute Neuts (auto) 4.7 Absolute Lymphs (auto) 1.78 Nucleated RBC % 0 PT 14.1 INR 1.1 APTT 25.4 Sodium 139 Potassium 3.9 Chloride 102 Carbon Dioxide 31.0 Anion Gap 5 BUN 18 Creatinine 1.16 Estim Creat Clear Calc 55.90 Est GFR (MDRD) Af Amer 78 Est GFR (MDRD) Non-Af 65 BUN/Creatinine Ratio 15.5 Glucose 89 Calcium 9.9 Radiography Diagnostic Testing: Clinical Impression(s) from Imaging Studies Humerus X-Ray 08/02/24 17:55 IMPRESSION: No acute abnormality of the humerus. Electronically Signed: Nilsa Trinh MD at 18:31 EDT , Shoulder X-Ray 08/02/24 17:55 IMPRESSION: 1. Apparent right pneumothorax, rib fractures and chest wall gas. 2. Correlate with recent trauma. Consider chest radiograph. Electronically Signed: Nilsa Trinh MD at 18:30 EDT , ADDENDUM: 08/02/24 1845 IMPRESSION: 1. Apparent right pneumothorax, rib fractures and chest wall gas. 2. Correlate with recent trauma. Consider chest radiograph. N.B. : The above Results were Read Back by Nilsa Trinh MD to Luiz Chun MD, and understanding confirmed on 08/02/2024 18:38:55 (ET). Electronically Signed: Nilsa Trinh MD at 18:30 EDT , Brain CT 08/02/24 19:18 IMPRESSION: No acute findings in the head/brain. Electronically Signed: Nilsa Trinh MD at 21:19 EDT , Cervical Spine CT 08/02/24 19:18 IMPRESSION: 1. Mild right pneumothorax. 2. Degenerative cervical spine changes. No convincing acute fracture or subluxation. No jose guadalupe high-grade spinal stenosis. 3. Mild anterior compression fracture deformity of upper anterior body of T2, uncertain age. No retropulsion. Electronically Signed: Nilsa Trinh MD at 21:08 EDT , Chest CT 08/02/24 19:18 IMPRESSION: 1. Fractures of right fifth through eighth ribs, with 2 fractures in each of the sixth and seventh ribs. 2. Right hemopneumothorax, pneumothorax estimated to be 15% of the right hemithorax volume. Maximum pneumothorax AP diameter 2.9 cm anterior to the right lung base. 3. Chronic marked T6 compression fracture deformity with sclerosis but also at least a residual recurrent lucent fracture line. Mild decreased height at other levels. No retropulsion or spinal stenosis. 4. No acute upper abdominal abnormality visible on unenhanced exam. Electronically Signed: Nilsa Trinh MD at 21:33 EDT , Management Discussion w/another healthcare provider: Court Liaison Critical Care Time Critical Care Time: Yes Critical care time (excluding procedures): 30-74 minutes (36), Discussing w/Patient &/or Family/Edge Molder and Arranging Admission or Transfer Discharge Plan Triage Chief Complaint: Fall ED Provider: Shanita Burnett Dx/Rx/DC Orders Clinical Impression: Multiple fractures of rib involving four or more ribs, Separation of acromioclavicular joint due to injury, Hemopneumothorax on right Prescriptions: No Action multivitamin [Multiple Vitamins] 1 EACH tablet 1 ea PO DAILY atorvastatin [Lipitor] 20 MG tablet 20 mg PO QHS ascorbic acid (vitamin C) 1,000 MG tablet extended release 1,000 mg PO DAILY tamsulosin 0.4 MG capsule 0.4 mg PO QHS calcium carbonate 500 MG tablet,chewable 500 mg PO DAILY cholecalciferol (vitamin D3) [Vitamin D3] 400 UNIT tablet 400 unit PO DAILY glucosamine-chondroitin 1 EACH capsule 1 ea PO BID escitalopram oxalate 10 MG tablet 10 mg PO QHS acetaminophen [Tylenol] 325 MG tablet 325 mg PO Q4H PRN PRN (Reason: Pain) 0RF ibuprofen 400 MG tablet 400 mg PO Q6H PRN PRN (Reason: Mild Pain (-12/19)) 0RF carbidopa-levodopa 25-100 mg tablet Patient Comments: TAKE 1 & 1 2 (ONE & ONE HALF) TABLETS BY MOUTH THREE TIMES DAILY meclizine 25 mg tablet 25 mg PO TID PRN (Reason: dizziness) Qty: 14 0RF ciprofloxacin HCl 500 mg tablet 500 mg PO BID Qty: 14 0RF Primary Care Provider: Gerson Whittaker Referrals: Gerson Whittaker MD [Primary Care Provider] - Print Language: Omani Disposition Disposition: Acute Care Hospital Discharge Location: [facility] Discharge Date/Time: 08/03/24 00:11
[2024-08-02 19:45] LABS: Absolute Lymphocyte Count 1.78 X10^3/uL (0.83-4.51); Absolute Neutrophil Count 4.7 X10^3/uL (2.0-7.7); Basophil# 0.04 X10^3/uL; Basophil% 0.5 % (0-1); Eosinophil# 0.14 X10^3/uL; Eosinophils% 1.9 % (0-5); Hematocrit 44.8 % (40-54); Hemoglobin 14.6 g/dL (13.0-16.5); Lymphocyte # 1.78 X10^3/ul (0.83-4.51); Lymphocyte % 24.4 % (19-41); Mean Corp Hgb Conc 32.6 g/dL (32-36); Mean Corpuscular Hgb 32.5 pg (27.0-32.0); Mean Corpuscular Volume 99.8 fL (80-94); Mean Platelet Vol. 10.1 fl (6.2-12.0); Monocyte# 0.63 X10^3/uL; Monocyte% 8.6 % (0-10); NRBC Flagged by Analyzer 0 % (0-5); Neutrophil # 4.66 X10^3/uL (2.7-7.7); Neutrophil % 64.1 % (47-70); Platelet Count 209 K/mm3 (150-450); Red Blood Count 4.49 M/mm3 (4.6-6.2); White Blood Count 7.3 K/mm3 (4.4-11.0)
[2024-08-02 19:52] LABS: Anion Gap 5 (5-15); BUN 18 mg/dL (7-18); BUN/Creat Ratio 15.5 RATIO (10-20); Calcium,Total 9.9 mg/dL (8.5-10.1); Chloride 102 mmol/L (98-107); Creatinine, Serum 1.16 mg/dL (0.70-1.30); EST Glomerular Filtration Rate 65 mL/min (>60); Est Glom Filt Rate - Afr Amer 78 mL/min (>60); Glucose 89 mg/dL (74-106); International Normalized Ratio 1.1; Potassium 3.9 mmol/L (3.5-5.1); Prothrombin Time (Protime)PT. 14.1 SECONDS (11.7-14.9); Sodium Level 139 mmol/L (136-145)
[2024-08-02 19:53] LABS: Partial Thromboplast Time 25.4 Seconds (24.1-36.2)
[2024-08-02] MEDS: Lidocaine 5% Patch 1 PATCH TOPICAL (23:20)
[2024-08-02] MEDS: oxyCODONE 5 MG Tablet PO (23:21)
== END 2024-08-03 00:11 | disposition short-term general hospital (02) ==
PROVIDERS: Emergency Provider Emergency Medicine; PCP Family Medicine; Visit Provider Emergency Medicine
DX: S22.41XA Multiple fractures of ribs, right side, initial encounter for closed fracture (principal); G20.A1 Parkinson's disease without dyskinesia, without mention of fluctuations; S61.511A Laceration without foreign body of right wrist, initial encounter; Z87.891 Personal history of nicotine dependence; S43.101A Unspecified dislocation of right acromioclavicular joint, initial encounter; W01.0XXA Fall on same level from slipping, tripping and stumbling without subsequent striking against object, initial encounter; Y93.K1 Activity, walking an animal
CPT/HCPCS: 70450; 71250; 72125; 73030; 73060; 80048; 85025; 85610; 85730; 93005; 96374; 99284; A4216

== ENCOUNTER → 2024-08-15 | Outpatient (CLI) | payer MEDICARE, OTHER, SELFPAY ==
--- NOTE | 2024-08-15 12:13 | ECHOD_ITS ---
Reason For Study: ABNORMAL EKG Procedure This was a 2D Doppler, Color Flow transthoracic echocardiogram. Exam performed in department. Left Ventricle Normal LV size. Mild concentric left ventricular hypertrophy. The left ventricular ejection fraction is 65 %. Stage 1 diastolic dysfunction. Right Ventricle Normal right ventricle. Atria The left atrium is mildly enlarged. Normal right atrium. Mitral Valve There is Severe focal posterior mitral annular calcification. Mild (1+) mitral valve insufficiency. Tricuspid Valve Trivial tricuspid valve insufficiency. Normal pulmonary artery pressure. Aortic Valve Mild focal aortic valve calcification. There is no aortic stenosis. No aortic valve insufficiency. Pulmonic Valve The pulmonic valve is not well visualized. Mild (1+) pulmonic valve insufficiency. Great Vessels Mildly dilated aortic root. Pericardium/Pleural No pericardial effusion. MMode/2D Measurements & Calculations LVIDd: 4.0 cm IVSd: 1.3 cm LVOT diam: 2.6 cm LVIDs: 2.1 cm LVPWd: 1.2 cm LVOT area: 5.3 cm2 RVDd: 4.4 cm FS: 47.1 % asc Aorta Diam: 3.8 cm LAV(MOD-bp): 37.9 ml LVAd ap4: 27.0 cm2 LAV(MOD-bp) Indexed: 18.7 ml/m2 LVLd ap4: 8.1 cm LAV(MOD-sp2): 39.4 ml EDV(MOD-sp4): 73.1 ml LAV(MOD-sp4): 35.4 ml EDV(sp4-el): 75.8 ml LVAs ap4: 11.8 cm2 LVLs ap4: 6.7 cm ESV(MOD-sp4): 18.3 ml ESV(sp4-el): 17.8 ml EF(MOD-sp4): 75.0 % EF(sp4-el): 76.5 % LVAd ap2: 24.2 cm2 SV(MOD-sp4): 54.8 ml SV(MOD-sp2): 40.5 ml LVLd ap2: 8.0 cm SI(MOD-sp4): 27.1 ml/m2 SI(MOD-sp2): 20.0 ml/m2 EDV(MOD-sp2): 62.6 ml EDV(sp2-el): 62.0 ml LVAs ap2: 13.1 cm2 LVLs ap2: 6.9 cm ESV(MOD-sp2): 22.1 ml ESV(sp2-el): 21.2 ml EF(MOD-sp2): 64.6 % SV(sp4-el): 58.0 ml Ao sinus diam: 4.[address] Junction: 3.3 cm LA dimension(2D): 3.3 cm LA A4 area: 15.1 cm2 RA A4 area: 12.2 cm2 TAPSE: 2.7 cm Time Measurements MV dec time: 0.39 sec Doppler Measurements & Calculations MV E max vlad: 71.5 cm/sec Lat Peak E' Vlad: 4.7 cm/sec Med Peak E' Vlad: 7.0 cm/sec MV A max vlad: 108.8 cm/sec E/E' lat: 15.2 E/E' med: 10.2 MV E/A: 0.66 MV dec slope: 183.5 cm/sec2 Ao V2 max: 136.9 cm/sec LV V1 max: 94.6 cm/sec Ao max P.5 mmHg LV V1 max P.6 mmHg Ao V2 mean: 92.1 cm/sec LV V1 mean P.8 mmHg Ao mean P.8 mmHg LV V1 mean: 60.6 cm/sec Ao V2 VTI: 26.3 cm LV V1 VTI: 21.6 cm AV (velocity ratio): 0.82 ISA(I,D): 4.4 cm2 ISA(V,D): 3.7 cm2 SV(LVOT): 115.0 ml PA V2 max: 84.9 cm/sec TR max vlad: 247.2 cm/sec PA max PG (full): 1.8 mmHg TR max P.4 mmHg ECHO/Echo Complete Interpretation Summary Mild concentric left ventricular hypertrophy. The left ventricular ejection fraction is 65 %. Stage 1 diastolic dysfunction. The left atrium is mildly enlarged. There is Severe focal posterior mitral annular calcification. Mild (1+) mitral valve insufficiency. Mild focal aortic valve calcification. Mildly dilated aortic root. Ordering Physician: EVELIN MCCARTHY Referring Physician: EVELIN MCCARTHY Performed By: Gege Enciso RDCS and Student
== END | disposition home or self-care (01) ==
LOC: CVS 12:10
PROVIDERS: PCP Family Medicine; Referring Provider Nurse Practitioner Family; Visit Provider Nurse Practitioner Family
DX: Z01.818 Encounter for other preprocedural examination (principal)
CPT/HCPCS: 93306

== ENCOUNTER → 2024-08-16 | Outpatient (CLI) | payer MEDICARE, OTHER, SELFPAY ==
--- NOTE | 2024-08-16 10:24 | STRESSREP ---
Stress Test Report Date: 08/16/2024 Procedure: Pharmacologic stress nuclear imaging study Indications: Abnormal ECG Consent: Per the patient Procedure: The patient underwent pharmacologic (Regadenoson 0.4mg ) evaluation with a peak heart rate of 77 beats per minute (54%predicted maximal heart rate) and a peak blood pressure of 124/80 mmHg. The baseline ECG demonstrated sinus rhythm with nonspecific intraventricular conduction delay. The peak pharmacologic ECG demonstrated no diagnostic ischemic changes. Rare PVC preinfusion. There was no complaint of chest discomfort during pharmacologic infusion or recovery. The patient was injected with 10 point millicuries of technetium 99m Cardiolite and subsequently rest SPECT Cardiolite nuclear imaging was obtained in the horizontal long, vertical long, and short axis views. The patient underwent pharmacologic (Regadenoson) evaluation. The patient was injected with 32.8 millicuries of technetium 99m Cardiolite and subsequently stress SPECT Cardiolite nuclear imaging was obtained in the horizontal long, vertical long, and short axis views. A gated Cardiolite study at peak stress was obtained. The examination was stopped secondary to completion of protocol. Rest and stress SPECT Cardiolite nuclear imaging status post realignment, normalization, and attenuation correction demonstrate no fixed or reversible perfusion defects. There is end systolic thickening and brightening. The gated Cardiolite study demonstrates myocardial thickening and inward wall motion. The reported LVEF is 75%. Impression: 1. Pharmacologic (Regadenoson) evaluation 2. Peak pharmacologic ECG with no diagnostic ischemic changes. 3. There were no cardiac dysrhythmias pretest, during pharmacologic infusion, or recovery. 5. Rest and stress SPECT Cardiolite nuclear imaging demonstrate relative uniform tracer uptake and myocardial perfusion appearing within normal limits. 6. The gated Cardiolite study reports an LVEF of 75%. This note was generated with [employer] software. It may contain incorrect words, spelling, and punctuation that were not noted in checking the note before signing.
== END | disposition home or self-care (01) ==
LOC: CVS 06:23
PROVIDERS: PCP Family Medicine; Referring Provider Nurse Practitioner Family; Visit Provider Nurse Practitioner Family
DX: Z13.6 Encounter for screening for cardiovascular disorders (principal); R94.31 Abnormal electrocardiogram [ECG] [EKG]
CPT/HCPCS: 78452; 93017; A9500; A4216; J2785